=== PATIENT | female | born 1945 | race Caucasian/White ===

== ENCOUNTER 2019-11-14 07:32 | Outpatient (CLI) | payer MEDICARE, SELFPAY ==
[2019-11-14 08:18] LABS: Creatinine Urine 103.78 mg/dL (40-278); Total Protein Urine Random 54.5 mg/dL (0.0-11.9)
[2019-11-14 08:21] LABS: MALB Creatinine Ratio 308.8 mg/g (0-30); Microalbumin Urine Random 320.5 mg/L
[2019-11-14 08:39] LABS: Albumin Level 3.7 g/dL (3.4-5.0); Anion Gap 13.1 mmol/L (7-16); Blood Urea Nitrogen 34 mg/dL (7-18); Calcium 9.3 mg/dL (8.5-10.1); Carbon Dioxide 28 mmol/L (21-32); Chloride 109 mmol/L (98-108); Estimated Glomerular Filt Rate 30; Glucose 96 mg/dL (70-99); Osmolality Calculated 309 mOsm/kg (285-295); Phosphorus 3.7 mg/dL (2.6-4.7); Potassium 4.1 mmol/L (3.5-5.1); Sodium 146 mmol/L (136-145)
[2019-11-17 11:40] LABS: Parathyroid Intact 28 pg/mL (14-64)
[2019-11-18 12:02] LABS: Vitamin D 25 Hydroxy 38 ng/mL (30-100)
== END 2019-11-14 07:33 | disposition home or self-care (01) ==
LOC: CHSLAB 07:35
PROVIDERS: PCP Family Medicine; Visit Provider Internal Medicine Nephrology
DX: N18.4 Chronic kidney disease, stage 4 (severe) (principal); I12.9 Hypertensive chronic kidney disease with stage 1 through stage 4 chronic kidney disease, or unspecified chronic kidney disease; R80.8 Other proteinuria
CPT/HCPCS: 36415; 80069; 82043; 82306; 82570; 83970; 84156

== ENCOUNTER 2020-02-07 07:23 | Outpatient (CLI) | payer MEDICARE, SELFPAY ==
--- NOTE | ~2020-02-07 | MR_ITS ---
EXAMINATION: MR thoracic spine wo con DATE: 02/07/2020 08:31 INDICATION: Thoracic back pain. TECHNIQUE: Magnetic resonance imaging (MRI) of the thoracic spine was performed without intravenous c ontrast. Sagittal localizer T1-weighted FSE of the cervical spine was obtained. Thoracic spine sequen liyah included sagittal T2-weighted FSE, sagittal T1-weighted FSE, sagittal T2-weighted FS FSE, and axi al T2-weighted FSE. COMPARISON: Lumbar spine MRI 08/09/2019 FINDINGS: There is 7 degrees dextrocurvature of cervical spine. There is 2 mm anterolisthesis of C4 o n C5. Vertebral body heights are normal. There is moderately decreased disc height at C5-C6 and C6-C7 . There is mildly decreased disc height at most thoracic levels. There is severely decreased disc hei ght at T10-T11 with endplate remodeling. At T1-T2, there is a left foraminal extrusion with mild left neural foraminal stenosis. At T2-T3, T3-T4, T5-T6, T6-T7, T7-T8, and T8-T9, the discs are bulging wi th mild central canal stenosis. There is multilevel mild facet joint osteoarthritis. There is moderat e facet joint osteoarthritis bilaterally at T4-T5 and on the right at T5-T6. There is mild neural for aminal stenosis on the right at T4-T5 and T5-T6 and on the left at T4-T5 and T7-T8. The spinal cord s ignal intensity is normal. IMPRESSION: 1. Moderate thoracic spondylosis. Reviewed, dictated and finalized at location A.
== END 2020-02-07 07:24 | disposition home or self-care (01) ==
LOC: CHSIMG 07:25
PROVIDERS: PCP Family Medicine; Visit Provider Nurse Practitioner Family
DX: M54.6 Pain in thoracic spine (principal)
CPT/HCPCS: 72146

== ENCOUNTER 2020-02-12 07:05 | Outpatient (CLI) | payer MEDICARE, SELFPAY ==
[2020-02-12 07:38] LABS: Basophils Absolute Auto 0.04 K/mm3 (0.00-0.10); Basophils Percent Auto 0.5 % (0.0-1.0); Eosinophils Absolute Auto 0.28 K/mm3 (0.02-0.50); Eosinophils Percent Auto 3.6 % (1.0-6.0); Hematocrit 36.8 % (35.0-42.0); Hemoglobin 12.1 g/dL (11.7-13.8); Immature Granulocyte Absolute 0.05 K/mm3 (0.00-0.00); Immature Granulocyte Percent A 0.6 % (0.0-0.0); Lymphocytes Absolute Auto 1.49 K/mm3 (1.10-4.50); Lymphocytes Percent Auto 18.9 % (18.0-42.0); Mean Corpuscular HGB Conc 32.9 g/dL (32.0-36.0); Mean Corpuscular Hemoglobin 30.9 pg (27.0-31.0); Mean Corpuscular Volume 93.9 fL (78.0-102.0); Mean Platelet Volume 10.6 fl (9.2-11.8); Monocytes Absolute Auto 0.75 K/mm3 (0.10-0.90); Monocytes Percent Auto 9.5 % (2.0-11.0); Neutrophils Absolute Auto 5.3 K/mm3 (1.7-7.2); Neutrophils Percent Auto 66.9 % (50.0-70.0); Platelet Count Result 242 K/mm3 (150-420); Red Blood Count 3.92 M/mm3 (4.20-5.40); Red Cell Distribution Width 13.6 % (11.6-14.4); White Blood Count 7.9 K/mm3 (4.8-10.8)
[2020-02-12 08:52] LABS: Alanine Aminotransferase 27 U/L (14-59); Albumin Level 3.6 g/dL (3.4-5.0); Alkaline Phosphatase 95 U/L (46-116); Anion Gap 13.8 mmol/L (7-16); Aspartate Amino Transferase 16 U/L (15-37); Bilirubin,Total 0.3 mg/dL (0.00-1.00); Blood Urea Nitrogen 30 mg/dL (7-18); Calcium 9.8 mg/dL (8.5-10.1); Carbon Dioxide 29 mmol/L (21-32); Chloride 110 mmol/L (98-108); Estimated Glomerular Filt Rate 21; Glucose 100 mg/dL (70-99); Osmolality Calculated 314 mOsm/kg (285-295); Potassium 3.8 mmol/L (3.5-5.1); Sodium 149 mmol/L (136-145); Total Protein 6.7 g/dL (6.4-8.2)
== END 2020-02-12 07:06 | disposition home or self-care (01) ==
PROVIDERS: PCP Family Medicine; Visit Provider Family Medicine
DX: E78.2 Mixed hyperlipidemia (principal); I10 Essential (primary) hypertension
CPT/HCPCS: 36415; 80053; 85025

== ENCOUNTER 2020-02-17 12:07 | Outpatient (CLI) | payer MEDICARE, SELFPAY ==
[2020-02-17 12:22] LABS: Basophils Absolute Auto 0.04 K/mm3 (0.00-0.10); Basophils Percent Auto 0.5 % (0.0-1.0); Eosinophils Absolute Auto 0.15 K/mm3 (0.02-0.50); Eosinophils Percent Auto 1.8 % (1.0-6.0); Hematocrit 38.8 % (35.0-42.0); Hemoglobin 12.7 g/dL (11.7-13.8); Immature Granulocyte Absolute 0.04 K/mm3 (0.00-0.00); Immature Granulocyte Percent A 0.5 % (0.0-0.0); Lymphocytes Absolute Auto 1.48 K/mm3 (1.10-4.50); Lymphocytes Percent Auto 17.8 % (18.0-42.0); Mean Corpuscular HGB Conc 32.7 g/dL (32.0-36.0); Mean Corpuscular Hemoglobin 30.5 pg (27.0-31.0); Mean Corpuscular Volume 93.3 fL (78.0-102.0); Mean Platelet Volume 10.5 fl (9.2-11.8); Monocytes Absolute Auto 0.89 K/mm3 (0.10-0.90); Monocytes Percent Auto 10.7 % (2.0-11.0); Neutrophils Absolute Auto 5.7 K/mm3 (1.7-7.2); Neutrophils Percent Auto 68.7 % (50.0-70.0); Platelet Count Result 255 K/mm3 (150-420); Red Blood Count 4.16 M/mm3 (4.20-5.40); Red Cell Distribution Width 13.2 % (11.6-14.4); White Blood Count 8.3 K/mm3 (4.8-10.8)
[2020-02-17 13:32] LABS: D Dimer 2.02 mg/L (0.19-0.50)
== END 2020-02-17 12:08 | disposition home or self-care (01) ==
LOC: CHSLAB 12:10
PROVIDERS: PCP Family Medicine; Visit Provider Family Medicine
DX: G57.72 Causalgia of left lower limb (principal)
CPT/HCPCS: 36415; 85025; 85380

== ENCOUNTER 2020-02-17 14:16 | Outpatient (CLI) | payer MEDICARE, SELFPAY ==
--- NOTE | ~2020-02-17 | US_ITS ---
EXAMINATION: US venous doppler [facility] DATE: 02/17/2020 15:02 INDICATION: Lower limb edema and pain. TECHNIQUE: Grayscale ultrasound images without and with compression and Doppler ultrasound images of the bilateral lower extremity veins were obtained. COMPARISON: None. FINDINGS: The visualized portions of right common femoral vein, profunda (deep) femoral vein, femoral vein, pop liteal vein, peroneal veins, posterior tibial veins, and greater saphenous vein outflow are patent. The visualized portions of left common femoral vein, profunda femoral vein, femoral vein, popliteal v ein, peroneal veins, posterior tibial veins, and greater saphenous vein outflow are patent. IMPRESSION: 1. No deep venous thrombosis. Reviewed, dictated and finalized at location A.
== END 2020-02-17 14:17 | disposition home or self-care (01) ==
PROVIDERS: PCP Family Medicine; Visit Provider Family Medicine
DX: M79.89 Other specified soft tissue disorders (principal); R79.1 Abnormal coagulation profile
CPT/HCPCS: 93970

== ENCOUNTER 2020-03-02 11:19 | Outpatient (CLI) | payer MEDICARE, SELFPAY ==
[2020-03-02 12:52] LABS: Anion Gap 13.2 mmol/L (7-16); Blood Urea Nitrogen 38 mg/dL (7-18); Calcium 10.1 mg/dL (8.5-10.1); Carbon Dioxide 28 mmol/L (21-32); Chloride 107 mmol/L (98-108); Estimated Glomerular Filt Rate 23; Glucose 109 mg/dL (70-99); Osmolality Calculated 308 mOsm/kg (285-295); Potassium 4.2 mmol/L (3.5-5.1); Sodium 144 mmol/L (136-145)
== END 2020-03-02 11:20 | disposition home or self-care (01) ==
PROVIDERS: PCP Family Medicine; Visit Provider Family Medicine
DX: I10 Essential (primary) hypertension (principal)
CPT/HCPCS: 36415; 80048

== ENCOUNTER 2020-03-27 08:32 | Outpatient (CLI) | payer MEDICARE, SELFPAY ==
[2020-03-27 08:52] LABS: Total Protein Urine Random 123.3 mg/dL (0.0-11.9)
[2020-03-27 09:15] LABS: Albumin Level 3.7 g/dL (3.4-5.0); Blood Urea Nitrogen 35 mg/dL (7-18); Calcium 9.5 mg/dL (8.5-10.1); Carbon Dioxide 27 mmol/L (21-32); Chloride 107 mmol/L (98-108); Estimated Glomerular Filt Rate 24; Glucose 116 mg/dL (70-99); Osmolality Calculated 307 mOsm/kg (285-295); Phosphorus 3.5 mg/dL (2.6-4.7); Sodium 144 mmol/L (136-145)
== END 2020-03-27 08:33 | disposition home or self-care (01) ==
LOC: CHSLAB 08:34
PROVIDERS: PCP Family Medicine; Visit Provider Internal Medicine Nephrology
DX: N18.4 Chronic kidney disease, stage 4 (severe) (principal); I12.9 Hypertensive chronic kidney disease with stage 1 through stage 4 chronic kidney disease, or unspecified chronic kidney disease; R80.8 Other proteinuria
CPT/HCPCS: 36415; 80069; 82570; 84156

== ENCOUNTER 2020-04-28 09:51 | Outpatient (CLI) | payer MEDICARE, SELFPAY ==
[2020-04-28 10:14] LABS: Add Urine Microscopic? YES; Appearance Urine Clear (Clear); Basophils Absolute Auto 0.06 K/mm3 (0.00-0.10); Basophils Percent Auto 0.8 % (0.0-1.0); Bilirubin Urine Negative (Negative); Blood Urine Negative (Negative); Color Urine Yellow (Yellow); Eosinophils Absolute Auto 0.17 K/mm3 (0.02-0.50); Eosinophils Percent Auto 2.2 % (1.0-6.0); Glucose Urine UA Negative (Negative); Hematocrit 40.2 % (35.0-42.0); Hemoglobin 13.3 g/dL (11.7-13.8); Immature Granulocyte Absolute 0.03 K/mm3 (0.00-0.00); Immature Granulocyte Percent A 0.4 % (0.0-0.0); Ketones Urine Negative (Negative); Leukocyte Esterase Ur Negative LEU/UL (Negative); Lymphocytes Absolute Auto 1.38 K/mm3 (1.10-4.50); Lymphocytes Percent Auto 17.8 % (18.0-42.0); Mean Corpuscular HGB Conc 33.1 g/dL (32.0-36.0); Mean Corpuscular Hemoglobin 29.9 pg (27.0-31.0); Mean Corpuscular Volume 90.3 fL (78.0-102.0); Mean Platelet Volume 10.9 fl (9.2-11.8); Monocytes Absolute Auto 0.68 K/mm3 (0.10-0.90); Monocytes Percent Auto 8.8 % (2.0-11.0); Neutrophils Absolute Auto 5.4 K/mm3 (1.7-7.2); Nitrate Urine Negative (Negative); Platelet Count Result 260 K/mm3 (150-420); Protein Urine 1+ (Negative); Red Blood Count 4.45 M/mm3 (4.20-5.40); Specific Grav Ur 1.025 (1.010-1.020); Urobilinogen Urine 0.2 mg/dL (0.2-1.0); White Blood Count 7.8 K/mm3 (4.8-10.8); pH Urine 5.5 (5.0-8.0)
[2020-04-28 10:22] LABS: RBC Urine 0-2 /hpf (0-2); Squamous Epithelial Cell Urine Moderate /hpf (Few); WBC Urine 0-3 /hpf (0-3)
[2020-04-28 10:23] LABS: Bacteria Urine 2+ /hpf; Mucus Urine Moderate /lpf
--- NOTE | 2020-04-28 10:30 | ECG_ITS ---
Measurements Intervals [place] Rate: 70 P: 70 MT: 148 QRS: 59 QRSD: 79 T: 25 QT: 409 QTc: 443 Interpretive Statements SINUS RHYTHM BORDERLINE T WAVE ABNORMALITY- ANTERIOR LEADS BORDERLINE ECG Electronically Signed On 04-28-2020 11:23:22 CDT by Glen Aviles D.O.
[2020-04-28 10:58] LABS: Alanine Aminotransferase 26 U/L (14-59); Alkaline Phosphatase 92 U/L (46-116); Anion Gap 14.2 mmol/L (7-16); Aspartate Amino Transferase 20 U/L (15-37); Bilirubin,Total 0.3 mg/dL (0.00-1.00); Blood Urea Nitrogen 38 mg/dL (7-18); Calcium 9.7 mg/dL (8.5-10.1); Carbon Dioxide 27 mmol/L (21-32); Chloride 106 mmol/L (98-108); Estimated Glomerular Filt Rate 19; Glucose 118 mg/dL (70-99); Osmolality Calculated 306 mOsm/kg (285-295); Potassium 4.2 mmol/L (3.5-5.1); Sodium 143 mmol/L (136-145); Total Protein 7.4 g/dL (6.4-8.2)
[2020-04-28 11:00] LABS: CRP < 0.2 mg/dL (0.0-0.9)
[2020-04-28 11:16] LABS: Erythrocyte Sedimentation Rate 32 mm/hr (0-20)
== END 2020-04-28 09:52 | disposition home or self-care (01) ==
PROVIDERS: PCP Family Medicine; Visit Provider Nurse Practitioner Family
DX: Z01.818 Encounter for other preprocedural examination (principal)
CPT/HCPCS: 36415; 80053; 81001; 85025; 85652; 86140; 93005

== ENCOUNTER 2020-05-14 16:06 | Outpatient (CLI) | payer MEDICARE, SELFPAY ==
[2020-05-14 16:19] LABS: Basophils Absolute Auto 0.05 K/mm3 (0.00-0.10); Basophils Percent Auto 0.7 % (0.0-1.0); Eosinophils Absolute Auto 0.18 K/mm3 (0.02-0.50); Eosinophils Percent Auto 2.5 % (1.0-6.0); Hematocrit 37.5 % (35.0-42.0); Hemoglobin 12.2 g/dL (11.7-13.8); Immature Granulocyte Absolute 0.04 K/mm3 (0.00-0.00); Immature Granulocyte Percent A 0.6 % (0.0-0.0); Lymphocytes Absolute Auto 1.36 K/mm3 (1.10-4.50); Lymphocytes Percent Auto 18.8 % (18.0-42.0); Mean Corpuscular HGB Conc 32.5 g/dL (32.0-36.0); Mean Corpuscular Hemoglobin 29.3 pg (27.0-31.0); Mean Corpuscular Volume 89.9 fL (78.0-102.0); Mean Platelet Volume 10.2 fl (9.2-11.8); Monocytes Absolute Auto 0.84 K/mm3 (0.10-0.90); Monocytes Percent Auto 11.6 % (2.0-11.0); Neutrophils Absolute Auto 4.8 K/mm3 (1.7-7.2); Neutrophils Percent Auto 65.8 % (50.0-70.0); Platelet Count Result 288 K/mm3 (150-420); Red Blood Count 4.17 M/mm3 (4.20-5.40); Red Cell Distribution Width 13.1 % (11.6-14.4); White Blood Count 7.3 K/mm3 (4.8-10.8)
[2020-05-14 17:00] LABS: Alanine Aminotransferase 25 U/L (14-59); Albumin Level 3.7 g/dL (3.4-5.0); Alkaline Phosphatase 108 U/L (46-116); Anion Gap 8 mmol/L (8-16); Aspartate Amino Transferase 22 U/L (15-37); Bilirubin,Total 0.3 mg/dL (0.00-1.00); Blood Urea Nitrogen 29 mg/dL (7-18); Calcium 10.1 mg/dL (8.5-10.1); Carbon Dioxide 31 mmol/L (21-32); Chloride 106 mmol/L (98-108); Estimated Glomerular Filt Rate 25; Glucose 88 mg/dL (70-99); Osmolality Calculated 304 mOsm/kg (285-295); Potassium 3.8 mmol/L (3.5-5.1); Sodium 145 mmol/L (136-145); Total Protein 7.2 g/dL (6.4-8.2)
== END 2020-05-14 16:07 | disposition home or self-care (01) ==
LOC: CHSLAB 16:09
PROVIDERS: PCP Family Medicine; Visit Provider Family Medicine
DX: R60.0 Localized edema (principal)
CPT/HCPCS: 36415; 80053; 85025

== ENCOUNTER 2020-05-28 08:22 | Outpatient (CLI) | payer MEDICARE, SELFPAY ==
[2020-05-28 08:37] LABS: Basophils Absolute Auto 0.05 K/mm3 (0.00-0.10); Basophils Percent Auto 0.7 % (0.0-1.0); Eosinophils Absolute Auto 0.22 K/mm3 (0.02-0.50); Eosinophils Percent Auto 2.9 % (1.0-6.0); Hematocrit 38.7 % (35.0-42.0); Hemoglobin 12.4 g/dL (11.7-13.8); Immature Granulocyte Absolute 0.05 K/mm3 (0.00-0.00); Immature Granulocyte Percent A 0.7 % (0.0-0.0); Lymphocytes Absolute Auto 1.21 K/mm3 (1.10-4.50); Lymphocytes Percent Auto 15.8 % (18.0-42.0); Mean Corpuscular Hemoglobin 28.4 pg (27.0-31.0); Mean Corpuscular Volume 88.6 fL (78.0-102.0); Mean Platelet Volume 10.7 fl (9.2-11.8); Monocytes Absolute Auto 0.72 K/mm3 (0.10-0.90); Monocytes Percent Auto 9.4 % (2.0-11.0); Neutrophils Absolute Auto 5.4 K/mm3 (1.7-7.2); Neutrophils Percent Auto 70.5 % (50.0-70.0); Platelet Count Result 267 K/mm3 (150-420); Red Blood Count 4.37 M/mm3 (4.20-5.40); Red Cell Distribution Width 13.3 % (11.6-14.4); White Blood Count 7.6 K/mm3 (4.8-10.8)
[2020-05-28 09:07] LABS: Anion Gap 12 mmol/L (8-16); Blood Urea Nitrogen 38 mg/dL (7-18); Calcium 9.4 mg/dL (8.5-10.1); Carbon Dioxide 25 mmol/L (21-32); Chloride 107 mmol/L (98-108); Estimated Glomerular Filt Rate 22; Glucose 110 mg/dL (70-99); Osmolality Calculated 308 mOsm/kg (285-295); Potassium 4.1 mmol/L (3.5-5.1); Sodium 144 mmol/L (136-145)
== END 2020-05-28 08:23 | disposition home or self-care (01) ==
PROVIDERS: PCP Family Medicine; Visit Provider Family Medicine
DX: I10 Essential (primary) hypertension (principal)
CPT/HCPCS: 36415; 80048; 85025

== ENCOUNTER 2020-07-07 07:50 | Outpatient (RCR) | payer MEDICARE, SELFPAY ==
--- NOTE | 2020-07-07 17:48 | PTOPEVAL ---
Thank you for referring Juliana Pennington to [facility].? The patient is scheduled to be seen for therapy? ____x/week for ___ weeks. Please review, sign, date and return this plan of care MAGDALENA. I agree with and certify that the following plan of care is medically necessary. Referring Physician Date Admitting Provider: Attending Provider: Keshia Rahman, LAURO Referring Provider: *LUCIANA Outpatient Evaluation Start: 07/07/20 07:02 Freq: Status: Active Protocol: Document 07/07/20 07:02 [facility] (Rec: 07/07/20 07:56 [facility] [id number]) Therapy Assessment Status Assessment Status Assessment Status Evaluation Evaluation Information Problem Diagnosis pain stimulator implant and bilateral knee pain Onset 05/07/20 Additional Evaluation Detail oswestry = 58% LEFS = 66% Subjective Information patient reports she has had Query Text:As Reported By Patient/ back pain for years. she Family reports she went through a long process recently to help reduce her pain and found a stimulator to be the best help . she had a permanent stimulator placed on 05/07/20. she reports she has stiffness and pain in the L LE still. she reports she is limping still. she reports she also has pain in the R knee. she reports she has increased pain in with standing and walking. she reports she has reduction of pain with sitting. Prior Level of Function Comments Additional Prior Level of Function patient reports since her Comments surgery, she no longer has the horrific pain in her L LE. however, she still has stiffness. she reports she would like to focus on getting back to standing without pain and walking without a limp. Pain Assessment Timing of Pain Assessment Timing of Pain Assessment Assessment Pain Scale Pain Scale Used Numeric (1 - 10) Self Report Pain Assessment Right Knee(s) Reported Pain Level 2 Lowest Pain Intensity 1 Greatest Pain Intensity 2 Lower Back Reported Pain Level 4 Pain Radiation Left Leg Lowest Pain Intensity 3 Greatest Pain Intensity 8
== END 2020-07-29 08:20 | disposition home or self-care (01) ==
LOC: CHSPT 07:50
PROVIDERS: PCP Family Medicine; Visit Provider Nurse Practitioner Family
DX: M54.5 Low back pain (principal); M54.16 Radiculopathy, lumbar region; M62.81 Muscle weakness (generalized); M25.562 Pain in left knee; M25.561 Pain in right knee
CPT/HCPCS: 97110; 97162; 97530

== ENCOUNTER 2020-07-08 10:33 | Outpatient (CLI) | payer MEDICARE, SELFPAY ==
--- NOTE | ~2020-07-08 | XR_ITS ---
XR ankle LT min 3V DATE: 07/08/2020 11:14 INDICATION: Left ankle and foot pain TECHNIQUE: 4 views COMPARISON: None FINDINGS: Diffuse osteopenia. There is moderate generalized soft tissue swelling of the left ankle. No fracture or dislocation of the ankle or disruption of the ankle mortise is detected. No periosteal reaction or bone destruction. Posterior calcaneal enthesopathy. Slight plantar calcaneal enthesopathy. IMPRESSION: Soft tissue swelling Osteopenia Plantar and posterior calcaneal enthesopathy Reviewed, dictated and finalized at location B.
--- NOTE | ~2020-07-08 | XR_ITS ---
XR knee RT 3V DATE: 07/08/2020 11:14 INDICATION: Right knee pain TECHNIQUE: [place] and AP and lateral views COMPARISON: None FINDINGS: Prominent enthesopathy of the superior pole of the patella at the quadriceps tendon inserti on. There is slight periarticular spurring of the patella. There is moderate loss of joint space and minimal periarticular spurring at the medial compartment. No fracture or dislocation or joint effusion. No periosteal reaction or bone destruction. No radiopaq ue intra-articular loose body or chondrocalcinosis is evident. There is prominent femoral and some popliteal artery calcification. IMPRESSION: Osteoarthritis of medial and to a lesser extent patellofemoral compartments Reviewed, dictated and finalized at location B. IMPRESSION: Osteoarthritis of medial and to a lesser extent patellofemoral comp artments
--- NOTE | ~2020-07-08 | XR_ITS ---
EXAMINATION: XR knee LT 3V DATE: 07/08/2020 11:14 INDICATION: Left knee pain. TECHNIQUE: 3 views of left knee were obtained. COMPARISON: None. FINDINGS: Bone alignment is normal. No fracture. There is mild tricompartmental osteoarthritis. No kn ee joint effusion. IMPRESSION: 1. Mild left knee osteoarthritis. Reviewed, dictated and finalized at location A.
== END 2020-07-08 10:34 | disposition home or self-care (01) ==
PROVIDERS: PCP Family Medicine; Visit Provider Family Medicine
DX: M25.572 Pain in left ankle and joints of left foot (principal); M25.561 Pain in right knee
CPT/HCPCS: 73562; 73610

== ENCOUNTER 2020-07-19 08:14 | Outpatient (CLI) | payer MEDICARE, SELFPAY ==
--- NOTE | ~2020-07-19 | XR_ITS ---
EXAMINATION: XR foot LT min 3V DATE: 07/19/2020 08:37 INDICATION: Lateral left foot and ankle pain TECHNIQUE: Dorsoplantar, two oblique and lateral views of the left foot were obtained. COMPARISON: None. FINDINGS: Alignment is normal. No fracture. Mild polyarticular osteoarthritis at multiple joints in the mid and forefoot most prominent at the first metatarsophalangeal joint. Small Achilles and plantar calcaneal spurs. Subcutaneous edema with soft tissue swelling about the ankle and distal lower leg. IMPRESSION: 1. Mild polyarticular osteoarthritis in the mid and forefoot. No acute osseous abnormality. Reviewed, dictated and finalized at location B.
--- NOTE | ~2020-07-19 | XR_ITS ---
EXAMINATION: XR ankle LT min 3V DATE: 07/19/2020 08:37 INDICATION: Left ankle pain. TECHNIQUE: 3 views of left ankle were obtained. COMPARISON: Left ankle radiographs 07/08/2020 FINDINGS: Bone alignment is normal. No fracture. There is mild osteoarthritis of talonavicular joint. There are enthesophytes at the posterior and plantar aspects of calcaneal tuberosity. Ankle soft tis ekta swelling is noted. IMPRESSION: 1. Mild osteoarthritis of talonavicular joint. Reviewed, dictated and finalized at location A.
== END 2020-07-19 08:15 | disposition home or self-care (01) ==
LOC: CHSIMG 08:15
PROVIDERS: PCP Family Medicine; Visit Provider Orthopaedic Surgery
DX: M79.672 Pain in left foot (principal); M25.572 Pain in left ankle and joints of left foot
CPT/HCPCS: 73610; 73630

== ENCOUNTER 2020-07-22 07:53 | Outpatient (CLI) | payer MEDICARE, SELFPAY ==
[2020-07-22 08:13] LABS: Creatinine Urine 110.28 mg/dL (40-278); Total Protein Urine Random 56.3 mg/dL (0.0-11.9)
[2020-07-22 09:09] LABS: Albumin Level 3.9 g/dL (3.4-5.0); Anion Gap 11 mmol/L (8-16); Blood Urea Nitrogen 35 mg/dL (7-18); Calcium 9.8 mg/dL (8.5-10.1); Carbon Dioxide 26 mmol/L (21-32); Chloride 108 mmol/L (98-108); Estimated Glomerular Filt Rate 26; Glucose 121 mg/dL (70-99); Osmolality Calculated 309 mOsm/kg (285-295); Phosphorus 4.1 mg/dL (2.6-4.7); Potassium 4.2 mmol/L (3.5-5.1); Sodium 145 mmol/L (136-145)
[2020-07-24 12:21] LABS: Vitamin D 25 Hydroxy 32 ng/mL (30-100)
[2020-07-26 12:09] LABS: Parathyroid Intact 43 pg/mL (14-64)
== END 2020-07-22 07:54 | disposition home or self-care (01) ==
LOC: CHSLAB 07:55
PROVIDERS: PCP Family Medicine; Visit Provider Internal Medicine Nephrology
DX: I12.9 Hypertensive chronic kidney disease with stage 1 through stage 4 chronic kidney disease, or unspecified chronic kidney disease (principal); N18.4 Chronic kidney disease, stage 4 (severe); R80.8 Other proteinuria
CPT/HCPCS: 36415; 80069; 82306; 82570; 83970; 84156

== ENCOUNTER 2020-07-28 09:42 | Outpatient (CLI) | payer MEDICARE, SELFPAY ==
--- NOTE | ~2020-07-28 | US_ITS ---
US arterial ankle brachial ind INDICATION: Arterial insufficiency TECHNIQUE: Segmental pressures and plethysmographic and Doppler waveforms of the brachial and lower e xtremity arteries were obtained. COMPARISON: None. FINDINGS: Right and left brachial artery pressures of 139 mm Hg and 133 mm Hg, respectively, are concordant (no rmal difference <= 30 mmHg). The right ankle-brachial index (REAGAN) is 0.97 (normal >= 0.9-1.0). The right great toe-brachial index (TBI) is 0.62 (normal >= 0.60). The left REAGAN is 0.99. The left TBI is 0.74. IMPRESSION: 1. Normal ankle-brachial indices. Reviewed, dictated and finalized at location B.
== END 2020-07-28 09:43 | disposition home or self-care (01) ==
PROVIDERS: PCP Family Medicine; Visit Provider Orthopaedic Surgery
DX: I73.9 Peripheral vascular disease, unspecified (principal)
CPT/HCPCS: 93922

== ENCOUNTER 2020-08-05 09:59 | Outpatient (CLI) | payer MEDICARE, SELFPAY ==
--- NOTE | ~2020-08-05 | US_ITS ---
EXAMINATION: US venous doppler [facility] DATE: 08/05/2020 11:52 INDICATION: Phlebitis and thrombophlebitis of superficial veins at the lower limbs TECHNIQUE: Grayscale ultrasound images without and with compression and Doppler ultrasound images of the bilateral lower extremity veins were obtained. COMPARISON: None. FINDINGS: The visualized portions of right common femoral vein, profunda (deep) femoral vein, femoral vein, pop liteal vein, posterior tibial veins, peroneal veins, gastrocnemius vein and greater saphenous vein ou tflow are patent. Right standing Venous Mapping: reflux seconds duration; vein size. Greater saphenous origin: 0 seconds; 6.4 mm. Greater saphenous mid thigh:------ 0 seconds; 4.5 mm. Greater saphenous above knee:--- 0 seconds; 3.5 mm. Greater saphenous below knee:--- 0 seconds; 2.6-1.7 mm. Lesser saphenous: 0 seconds; too small to measure. The visualized portions of left common femoral vein, profunda femoral vein, femoral vein, popliteal v ein, posterior tibial veins, peroneal veins, gastrocnemius vein and greater saphenous vein outflow ar e patent. Left standing Venous Mapping: reflux seconds duration; vein size. Greater saphenous origin: 0 seconds; 5.6 mm. Greater saphenous mid thigh:------ 0 seconds; 5.8 mm. Greater saphenous above knee:--- 0 seconds; 3.4 mm. Greater saphenous below knee:--- 0 seconds; 3.9-2.3 mm. Lesser saphenous proximally:------ 0 seconds; 2.4 mm. Lesser saphenous distally: 0 seconds; 1.9 mm. IMPRESSION: 1. No deep venous thrombosis in either lower limb. 2. No reflux in either the left or right, greater or lesser saphenous veins. Reviewed, dictated and finalized at location B.
== END 2020-08-05 10:00 | disposition home or self-care (01) ==
PROVIDERS: PCP Family Medicine; Visit Provider Orthopaedic Surgery
DX: I80.03 Phlebitis and thrombophlebitis of superficial vessels of lower extremities, bilateral (principal)
CPT/HCPCS: 93970

== ENCOUNTER 2020-08-27 07:38 | Outpatient (CLI) | payer MEDICARE, SELFPAY ==
[2020-08-27 08:18] LABS: Basophils Absolute Auto 0.06 K/mm3 (0.00-0.10); Basophils Percent Auto 0.9 % (0.0-1.0); Eosinophils Absolute Auto 0.31 K/mm3 (0.02-0.50); Eosinophils Percent Auto 4.7 % (1.0-6.0); Hematocrit 37.6 % (35.0-42.0); Hemoglobin 12.3 g/dL (11.7-13.8); Immature Granulocyte Absolute 0.02 K/mm3 (0.00-0.00); Immature Granulocyte Percent A 0.3 % (0.0-0.0); Lymphocytes Absolute Auto 1.49 K/mm3 (1.10-4.50); Lymphocytes Percent Auto 22.7 % (18.0-42.0); Mean Corpuscular HGB Conc 32.7 g/dL (32.0-36.0); Mean Corpuscular Hemoglobin 29.3 pg (27.0-31.0); Mean Corpuscular Volume 89.5 fL (78.0-102.0); Mean Platelet Volume 11.3 fl (9.2-11.8); Monocytes Absolute Auto 0.69 K/mm3 (0.10-0.90); Monocytes Percent Auto 10.5 % (2.0-11.0); Neutrophils Percent Auto 60.9 % (50.0-70.0); Platelet Count Result 260 K/mm3 (150-420); Red Cell Distribution Width 13.3 % (11.6-14.4); White Blood Count 6.6 K/mm3 (4.8-10.8)
[2020-08-27 09:24] LABS: Creatinine Urine 78.59 mg/dL (40-278)
[2020-08-27 09:27] LABS: Alanine Aminotransferase 33 U/L (14-59); Albumin Level 3.8 g/dL (3.4-5.0); Alkaline Phosphatase 103 U/L (46-116); Anion Gap 11 mmol/L (8-16); Aspartate Amino Transferase 15 U/L (15-37); Bilirubin,Total 0.3 mg/dL (0.00-1.00); Blood Urea Nitrogen 30 mg/dL (7-18); Calcium 9.5 mg/dL (8.5-10.1); Carbon Dioxide 28 mmol/L (21-32); Chloride 106 mmol/L (98-108); Cholesterol 130 mg/dL (0-200); Estimated Glomerular Filt Rate 25; Glucose 108 mg/dL (70-99); HDL Direct 38 mg/dL (40-60); LDL Cholesterol Calculated 53 mg/dL (<130); Osmolality Calculated 307 mOsm/kg (285-295); Sodium 145 mmol/L (136-145); Thyroid Stimulating Hormone 0.82 uIU/mL (0.36-3.74); Total Protein 7.2 g/dL (6.4-8.2); Triglycerides 196 mg/dL (0-150)
[2020-08-27 09:32] LABS: MALB Creatinine Ratio 135.3 mg/g (0-30); Microalbumin Urine Random 106.4 mg/L
== END 2020-08-27 07:39 | disposition home or self-care (01) ==
LOC: CHSLAB 07:39
PROVIDERS: PCP Family Medicine; Visit Provider Family Medicine
DX: E78.2 Mixed hyperlipidemia (principal); I10 Essential (primary) hypertension
CPT/HCPCS: 36415; 80053; 80061; 82043; 84443; 85025

== ENCOUNTER 2020-11-26 07:53 | Outpatient (CLI) | payer MEDICARE, SELFPAY ==
[2020-11-26 08:12] LABS: Basophils Absolute Auto 0.04 K/mm3 (0.00-0.10); Basophils Percent Auto 0.6 % (0.0-1.0); Eosinophils Absolute Auto 0.22 K/mm3 (0.02-0.50); Eosinophils Percent Auto 3.2 % (1.0-6.0); Hematocrit 39.4 % (35.0-42.0); Hemoglobin 12.9 g/dL (11.7-13.8); Immature Granulocyte Absolute 0.01 K/mm3 (0.00-0.00); Immature Granulocyte Percent A 0.1 % (0.0-0.0); Lymphocytes Absolute Auto 1.29 K/mm3 (1.10-4.50); Lymphocytes Percent Auto 18.8 % (18.0-42.0); Mean Corpuscular HGB Conc 32.7 g/dL (32.0-36.0); Mean Corpuscular Hemoglobin 29.5 pg (27.0-31.0); Mean Corpuscular Volume 90.2 fL (78.0-102.0); Mean Platelet Volume 10.5 fl (9.2-11.8); Monocytes Absolute Auto 0.57 K/mm3 (0.10-0.90); Monocytes Percent Auto 8.3 % (2.0-11.0); Neutrophils Absolute Auto 4.8 K/mm3 (1.7-7.2); Platelet Count Result 198 K/mm3 (150-420); Red Blood Count 4.37 M/mm3 (4.20-5.40); Red Cell Distribution Width 13.2 % (11.6-14.4); White Blood Count 6.9 K/mm3 (4.8-10.8)
[2020-11-26 08:43] LABS: Anion Gap 8 mmol/L (8-16); Blood Urea Nitrogen 36 mg/dL (7-18); Calcium 9.2 mg/dL (8.5-10.1); Carbon Dioxide 29 mmol/L (21-32); Chloride 108 mmol/L (98-108); Estimated Glomerular Filt Rate 25; Glucose 89 mg/dL (70-99); Osmolality Calculated 307 mOsm/kg (285-295); Potassium 4.3 mmol/L (3.5-5.1); Sodium 145 mmol/L (136-145)
== END 2020-11-26 07:54 | disposition home or self-care (01) ==
LOC: CHSLAB 07:55
PROVIDERS: PCP Family Medicine; Visit Provider Family Medicine
DX: I10 Essential (primary) hypertension (principal)
CPT/HCPCS: 36415; 80048; 85025

== ENCOUNTER 2020-12-14 08:15 | Outpatient (RCR) | payer MEDICARE, SELFPAY ==
--- NOTE | 2020-09-15 13:03 | PTOPEVAL ---
Thank you for referring Juliana Pennington to [facility].? The patient is scheduled to be seen for therapy? 2-3 x/week for 8 weeks. Please review, sign, date and return this plan of care MAGDALENA. I agree with and certify that the following plan of care is medically necessary. Referring Physician Date Attending Provider: Travis Oreilly MD Referring Provider: *PT Outpatient Evaluation Start: 09/15/20 09:44 Freq: Status: Active Protocol: Document 09/15/20 09:44 [facility] (Rec: 09/15/20 11:00 [facility] [id number]) Therapy Assessment Status Assessment Status Assessment Status Evaluation Outpatient Past Medical History Past Medical History Source of Past Medical History Patient,Recalled from Previous Visit, Confirmed with Patient /Family Neurological History Hx Neurological Disorders No Significant History Cardiovascular History Hx Hypertension Yes Hx Other Cardiac Disorders Yes: venous insufficiency- peripheral Respiratory History Hx Respiratory Disorders No Significant History Musculoskeletal History Hx Arthritis Yes: ankle, hip, knees Integumentary History Hx Cellulitis Yes: left leg Pain History Has Past Pain Affected Your Daily Life Yes History of Pain Pump Yes Evaluation Information Problem Diagnosis left ankle pain Onset 2 yr Cause unknown Additional Evaluation Detail 3 previous bouts of therapy with last session to address her back and upper leg pain and ankle pain Jun-Jul 2020. She had pain stimulator implemented May 07, 2020 due to radiating pain from back to ankle Subjective Information She has been having ankle pain Query Text:As Reported By Patient/ for 1-2 yrs, with increased Family symptoms after pain stimulator was placed. Her impairments have progressed over the last 2 yres. She walks and stands on the outside of the foot. 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 She uses the cane at all times since Jul. She was using a walker, but prefers the cane. Reports near falls with c
--- NOTE | 2020-09-30 08:20 | PCPTNOTE ---
Patient called & cancelled scheduled appointment this date due to being sick.
--- NOTE | 2020-11-11 12:43 | PTOPEVAL ---
Thank you for referring Juliana Pennington to [facility].?Please see summary below for patient's progress with therapy. The patient is scheduled to be seen for therapy? 2x/week for 4 weeks. Please review, sign, date and return this plan of care MAGDALENA. I agree with and certify that the following plan of care is medically necessary. Referring Physician Date Attending Provider: Travis Oreilly MD Progress Note Diagnosis left ankle pain Onset 2 yr Cause unknown Subjective Information She continues to c/o pain on Query Text:As Reported By Patient/ the left lateral upper leg Family region. She does feel like she can walk longer than initially. She is limited with prolonged standing due to lateral calf and thigh pain. She is able to stand for 10 min intervals, then she needs to sit and rest. She has not performed longer distance community or outside walking. She is able to walk a small store before her pain increases to severe. She continues to use the came for mobility. She has had a couple near falls with her exercises. c/o increased back pain at night when attempting to sleep. Pain Assessment Left Hip(s) Reported Pain Level 3 Pain Description Aching,Tender on Palpation, Tightness Pain Frequency Chronic,Continuous Lowest Pain Intensity 3 Greatest Pain Intensity 4 Pain Aggravating Factors Exercise/Activity,Walking, Weight Bearing/Standing Left Ankle(s) Reported Pain Level 1 Pain Description Aching,Soreness Pain Frequency Chronic,Continuous Lowest Pain Intensity 1 Greatest Pain Intensity 2 Pain Aggravating Factors Bending,Exercise/Activity, Prolonged Position,Stair Climbing,Walking,Weight Lower Extremity Range of Motion Left Ankle Dorsiflexion With Knee Extension -14 Range of Motion - Active Ankle Dorsiflexion With Knee Extension -8 Range of Motion - Passive Ankle Plantarflexion Range of Motion - 50 Active Query Text: Ankle Eversion Range of Motion - Active 12 Ankle Jo Ann
--- NOTE | 2020-12-14 11:21 | PTOPEVAL ---
Thank you for referring Juliana Pennington to [facility].? Pt has attended 25 therapy visits to address leg impairments. As a result of skilled therapy services she demonstrates progress with ankle motion, leg strength and functional mobility. She is independent with her home program. She has reached maximal potential with skilled therapy services at this time. Discharging patient from skilled therapy services at this time. Please review, sign, date and return this plan of care MAGDALENA. I agree with and certify that the following plan of care is medically necessary. Referring Physician Date Admitting Provider: Attending Provider: Travis Oreilly MD Physical Therapy Discharge Note Diagnosis left ankle pain Onset 2 yr Cause unknown Additional Evaluation Detail 3 previous bouts of therapy with last session to address her back and upper leg pain and ankle pain Jun-Jul 2020. She had pain stimulator implemented May 07, 2020 due to radiating pain from back to ankle She has been having ankle pain for 1-2 yrs, with increased symptoms after pain stimulator was placed. Her impairments have progressed over the last 2 yrs. Subjective Information She reports improved pain in Query Text:As Reported By Patient/ the left buttock region. She Family has new shoes and inserts which she purchased at the [employer] . Does feel the shoes and inserts are helping with foot position and control. She worked in the yard yesterday without loss of balance. She does feel like she can stand for 15-20 min. before needing a rest. She does feel like her walking is better. Pain Assessment Numeric (1 - 10) Self Report Pain Assessment Left Hip(s) Reported Pain Level 2 Pain Description Aching,Tender on Palpation, Tightness Pain Frequency Chronic Lowest Pain Intensity 2 Greatest Pain Intensity 6 Pain Aggravating Factors Exercise/Activity,Walking, Weight Bearing/Standing Left Ankle(s) Reported Pain Level 1 Pain Description Aching,Soreness Pain Frequency Chronic,Continuous
== END 2020-12-14 23:59 | disposition home or self-care (01) ==
LOC: ANHPT 08:15
PROVIDERS: PCP Family Medicine; Visit Provider Orthopaedic Surgery
DX: M25.572 Pain in left ankle and joints of left foot (principal)
CPT/HCPCS: 97110; 97112; 97116; 97140; 97163; 97530

== ENCOUNTER 2021-01-10 07:56 | Outpatient (CLI) | payer MEDICARE, SELFPAY ==
[2021-01-10 08:24] LABS: Creatinine Urine 214.29 mg/dL (40-278); Total Protein Urine Random 114.4 mg/dL (0.0-11.9); Ur Ttl Prot Creatinine Ratio 0.53 mg/mg (0-0.20)
[2021-01-10 09:06] LABS: Albumin Level 3.7 g/dL (3.4-5.0); Anion Gap 10 mmol/L (8-16); Blood Urea Nitrogen 37 mg/dL (7-18); Calcium 9.6 mg/dL (8.5-10.1); Carbon Dioxide 28 mmol/L (21-32); Chloride 104 mmol/L (98-108); Estimated Glomerular Filt Rate 21; Glucose 103 mg/dL (70-99); Osmolality Calculated 302 mOsm/kg (285-295); Phosphorus 3.4 mg/dL (2.6-4.7); Potassium 4.1 mmol/L (3.5-5.1); Sodium 142 mmol/L (136-145)
== END 2021-01-10 07:57 | disposition home or self-care (01) ==
LOC: CHSLAB 07:57
PROVIDERS: PCP Family Medicine; Visit Provider Internal Medicine Nephrology
DX: R80.8 Other proteinuria (principal); I12.9 Hypertensive chronic kidney disease with stage 1 through stage 4 chronic kidney disease, or unspecified chronic kidney disease; N18.4 Chronic kidney disease, stage 4 (severe)
CPT/HCPCS: 36415; 80069; 82570; 84156

== ENCOUNTER 2021-03-11 07:38 | Outpatient (CLI) | payer MEDICARE, SELFPAY ==
[2021-03-11 09:38] LABS: Anion Gap 13 mmol/L (8-16); Blood Urea Nitrogen 46 mg/dL (7-18); Calcium 9.8 mg/dL (8.5-10.1); Carbon Dioxide 27 mmol/L (21-32); Chloride 104 mmol/L (98-108); Estimated Glomerular Filt Rate 19; Glucose 103 mg/dL (70-99); Osmolality Calculated 309 mOsm/kg (285-295); Potassium 4.1 mmol/L (3.5-5.1); Sodium 144 mmol/L (136-145); Uric Acid 9.5 mg/dL (2.6-6.0)
== END 2021-03-11 07:39 | disposition home or self-care (01) ==
LOC: CHSLAB 07:40
PROVIDERS: PCP Family Medicine; Visit Provider Family Medicine
DX: M10.9 Gout, unspecified (principal); I10 Essential (primary) hypertension
CPT/HCPCS: 36415; 80048; 84550

== ENCOUNTER 2021-05-24 08:55 | Outpatient (CLI) | payer MEDICARE, SELFPAY ==
[2021-05-24 09:14] LABS: Creatinine Urine 115.09 mg/dL (40-278); Total Protein Urine Random 23.2 mg/dL (0.0-11.9)
[2021-05-24 09:51] LABS: Albumin Level 3.8 g/dL (3.4-5.0); Anion Gap 13 mmol/L (8-16); Blood Urea Nitrogen 54 mg/dL (7-18); Calcium 9.8 mg/dL (8.5-10.1); Carbon Dioxide 27 mmol/L (21-32); Chloride 106 mmol/L (98-108); Estimated Glomerular Filt Rate 17; Glucose 113 mg/dL (70-99); Osmolality Calculated 317 mOsm/kg (285-295); Phosphorus 3.7 mg/dL (2.6-4.7); Potassium 4.2 mmol/L (3.5-5.1); Sodium 146 mmol/L (136-145)
[2021-05-26 12:03] LABS: Vitamin D 25 Hydroxy 33 ng/mL (30-100)
[2021-05-27 12:49] LABS: Parathyroid Intact 22 pg/mL (14-64)
== END 2021-05-24 08:56 | disposition home or self-care (01) ==
LOC: CHSLAB 08:57
PROVIDERS: PCP Family Medicine; Visit Provider Internal Medicine Nephrology
DX: R80.8 Other proteinuria (principal); I12.9 Hypertensive chronic kidney disease with stage 1 through stage 4 chronic kidney disease, or unspecified chronic kidney disease; N18.4 Chronic kidney disease, stage 4 (severe)
CPT/HCPCS: 36415; 80069; 82306; 82570; 83970; 84156

== ENCOUNTER 2021-07-20 08:37 | Outpatient (CLI) | payer MEDICARE, SELFPAY ==
[2021-07-20 08:56] LABS: Basophils Absolute Auto 0.06 K/mm3 (0.00-0.10); Basophils Percent Auto 0.9 % (0.0-1.0); Eosinophils Absolute Auto 0.36 K/mm3 (0.02-0.50); Eosinophils Percent Auto 5.3 % (1.0-6.0); Hematocrit 40.2 % (35.0-42.0); Hemoglobin 13.2 g/dL (11.7-13.8); Immature Granulocyte Absolute 0.02 K/mm3 (0.00-0.00); Immature Granulocyte Percent A 0.3 % (0.0-0.0); Lymphocytes Absolute Auto 1.31 K/mm3 (1.10-4.50); Lymphocytes Percent Auto 19.4 % (18.0-42.0); Mean Corpuscular HGB Conc 32.8 g/dL (32.0-36.0); Mean Corpuscular Hemoglobin 29.6 pg (27.0-31.0); Mean Corpuscular Volume 90.1 fL (78.0-102.0); Mean Platelet Volume 10.7 fl (9.2-11.8); Monocytes Absolute Auto 0.64 K/mm3 (0.10-0.90); Monocytes Percent Auto 9.5 % (2.0-11.0); Neutrophils Absolute Auto 4.4 K/mm3 (1.7-7.2); Neutrophils Percent Auto 64.6 % (50.0-70.0); Platelet Count Result 261 K/mm3 (150-420); Red Blood Count 4.46 M/mm3 (4.20-5.40); Red Cell Distribution Width 13.2 % (11.6-14.4); White Blood Count 6.7 K/mm3 (4.8-10.8)
[2021-07-20 09:57] LABS: Alanine Aminotransferase 35 U/L (14-59); Alkaline Phosphatase 99 U/L (46-116); Anion Gap 11 mmol/L (8-16); Aspartate Amino Transferase 17 U/L (15-37); Bilirubin,Total 0.4 mg/dL (0.00-1.00); Blood Urea Nitrogen 34 mg/dL (7-18); Calcium 9.7 mg/dL (8.5-10.1); Carbon Dioxide 28 mmol/L (21-32); Chloride 108 mmol/L (98-108); Estimated Glomerular Filt Rate 24; Glucose 102 mg/dL (70-99); Osmolality Calculated 311 mOsm/kg (285-295); Potassium 4.4 mmol/L (3.5-5.1); Sodium 147 mmol/L (136-145); Thyroid Stimulating Hormone 0.85 uIU/mL (0.36-3.74); Total Protein 7.3 g/dL (6.4-8.2)
== END 2021-07-20 08:38 | disposition home or self-care (01) ==
LOC: CHSLAB 08:40
PROVIDERS: PCP Family Medicine; Visit Provider Family Medicine
DX: I10 Essential (primary) hypertension (principal)
CPT/HCPCS: 36415; 80053; 84443; 85025

== ENCOUNTER 2021-10-14 09:00 | Outpatient (CLI) | payer MEDICARE, SELFPAY ==
[2021-10-14 10:30] LABS: Albumin Level 3.6 g/dL (3.4-5.0); Anion Gap 10 mmol/L (8-16); Blood Urea Nitrogen 40 mg/dL (7-18); Calcium 9.5 mg/dL (8.5-10.1); Carbon Dioxide 30 mmol/L (21-32); Chloride 108 mmol/L (98-108); Estimated Glomerular Filt Rate 21; Glucose 93 mg/dL (70-99); Osmolality Calculated 315 mOsm/kg (285-295); Potassium 4.2 mmol/L (3.5-5.1); Sodium 148 mmol/L (136-145)
== END 2021-10-14 09:01 | disposition home or self-care (01) ==
LOC: CHSLAB 09:02
PROVIDERS: PCP Family Medicine; Visit Provider Internal Medicine Nephrology
DX: N18.4 Chronic kidney disease, stage 4 (severe) (principal)
CPT/HCPCS: 36415; 80069

== ENCOUNTER 2021-12-02 07:45 | Outpatient (CLI) | payer MEDICARE, SELFPAY ==
[2021-12-02 08:07] LABS: Basophils Absolute Auto 0.05 K/mm3 (0.00-0.10); Basophils Percent Auto 0.6 % (0.0-1.0); Eosinophils Absolute Auto 0.28 K/mm3 (0.02-0.50); Eosinophils Percent Auto 3.4 % (1.0-6.0); Hematocrit 39.3 % (35.0-42.0); Hemoglobin 12.4 g/dL (11.7-13.8); Immature Granulocyte Absolute 0.04 K/mm3 (0.00-0.00); Immature Granulocyte Percent A 0.5 % (0.0-0.0); Lymphocytes Absolute Auto 1.59 K/mm3 (1.10-4.50); Lymphocytes Percent Auto 19.4 % (18.0-42.0); Mean Corpuscular HGB Conc 31.6 g/dL (32.0-36.0); Mean Platelet Volume 10.5 fl (9.2-11.8); Monocytes Percent Auto 8.5 % (2.0-11.0); Neutrophils Absolute Auto 5.5 K/mm3 (1.7-7.2); Neutrophils Percent Auto 67.6 % (50.0-70.0); Platelet Count Result 266 K/mm3 (150-420); Red Blood Count 4.27 M/mm3 (4.20-5.40); Red Cell Distribution Width 12.9 % (11.6-14.4); White Blood Count 8.2 K/mm3 (4.8-10.8)
[2021-12-02 08:36] LABS: Creatinine Urine 72.59 mg/dL (40-278)
[2021-12-02 08:39] LABS: Microalbumin Urine Random 284.6 mg/L
[2021-12-02 08:42] LABS: Alanine Aminotransferase 26 U/L (14-59); Albumin Level 3.6 g/dL (3.4-5.0); Alkaline Phosphatase 96 U/L (46-116); Anion Gap 9 mmol/L (8-16); Aspartate Amino Transferase 13 U/L (15-37); Bilirubin,Total 0.3 mg/dL (0.00-1.00); Blood Urea Nitrogen 24 mg/dL (7-18); Calcium 9.5 mg/dL (8.5-10.1); Carbon Dioxide 29 mmol/L (21-32); Chloride 108 mmol/L (98-108); Cholesterol 129 mg/dL (0-200); Estimated Glomerular Filt Rate 27; Glucose 91 mg/dL (70-99); HDL Direct 47 mg/dL (40-60); LDL Cholesterol Calculated 55 mg/dL (<130); Osmolality Calculated 306 mOsm/kg (285-295); Sodium 146 mmol/L (136-145); Total Protein 6.9 g/dL (6.4-8.2); Triglycerides 134 mg/dL (0-150)
== END 2021-12-02 07:46 | disposition home or self-care (01) ==
LOC: CHSLAB 07:47
PROVIDERS: PCP Family Medicine; Visit Provider Family Medicine
DX: E78.2 Mixed hyperlipidemia (principal); I10 Essential (primary) hypertension
CPT/HCPCS: 36415; 80053; 80061; 82043; 85025

== ENCOUNTER 2021-12-08 09:53 | Outpatient (CLI) | payer MEDICARE, SELFPAY ==
--- NOTE | ~2021-12-08 | CT_ITS ---
EXAMINATION: CT lung screening DATE: 12/08/2021 10:22 INDICATION: Personal history of tobacco dependence. TECHNIQUE: Computed tomography (CT) of the chest was performed without intravenous contrast. The dose -length product was 152.46 mGy-cm. Automated exposure control and iterative reconstruction technique were employed. COMPARISON: None FINDINGS: Moderate pericardial effusion. No significant pleural effusion. No thoracic lymphadenopathy . 1.9 cm low-density lesion right hepatic lobe, most likely benign cysts. There are calcified granulo mas in the spleen. There are cholecystectomy clips. Mild emphysema. There is dependent atelectasis. T here is a 3 mm right lower lobe nodule, image 85. There is 2 mm left upper lobe nodule along the fiss ure, image 35. No pneumothorax. No endobronchial lesions. IMPRESSION: 1. Lung-RADS category 2: Benign appearance or behavior. Continue annual screening with noncontrast lo w-dose chest CT in 12 months. 2: Moderate pericardial effusion. Reviewed, dictated and finalized at location A. [employer] IMPRESSION: 1. Lung-RADS category 2: Benign appearance or behavior. Continue annual screeni ng with noncontrast low-dose chest CT in 12 months. 2: Moderate pericardial effusion.
== END 2021-12-08 09:54 | disposition home or self-care (01) ==
LOC: CHSIMG 09:54
PROVIDERS: PCP Family Medicine; Visit Provider Family Medicine
DX: Z12.2 Encounter for screening for malignant neoplasm of respiratory organs (principal); Z87.891 Personal history of nicotine dependence
CPT/HCPCS: 71271

== ENCOUNTER 2022-02-10 08:15 | Outpatient (CLI) | payer MEDICARE, SELFPAY ==
[2022-02-10 08:41] LABS: Creatinine Urine 159.02 mg/dL (40-278); Total Protein Urine Random 55.9 mg/dL (0.0-11.9); Ur Ttl Prot Creatinine Ratio 0.35 mg/mg (0-0.20)
[2022-02-10 08:47] LABS: Albumin Level 3.6 g/dL (3.4-5.0); Anion Gap 7 mmol/L (8-16); Blood Urea Nitrogen 35 mg/dL (7-18); Calcium 9.8 mg/dL (8.5-10.1); Carbon Dioxide 28 mmol/L (21-32); Chloride 106 mmol/L (98-108); Estimated Glomerular Filt Rate 21; Glucose 110 mg/dL (70-99); Osmolality Calculated 301 mOsm/kg (285-295); Phosphorus 4.4 mg/dL (2.6-4.7); Sodium 141 mmol/L (136-145)
[2022-02-13 23:06] LABS: Vitamin D 25 Hydroxy 31 ng/mL (30-100)
[2022-02-15 06:29] LABS: Parathyroid Intact 41 pg/mL (14-64)
== END 2022-02-10 08:16 | disposition home or self-care (01) ==
LOC: CHSLAB 08:17
PROVIDERS: PCP Family Medicine; Visit Provider Internal Medicine Nephrology
DX: I12.9 Hypertensive chronic kidney disease with stage 1 through stage 4 chronic kidney disease, or unspecified chronic kidney disease (principal); N18.4 Chronic kidney disease, stage 4 (severe); R80.8 Other proteinuria
CPT/HCPCS: 36415; 80069; 82306; 82570; 83970; 84156

== ENCOUNTER 2022-05-01 16:19 | Outpatient (CLI) | payer MEDICARE, SELFPAY ==
--- NOTE | ~2022-05-01 | XR_ITS ---
EXAM: XR foot LT min 3V DATE: 05/01/2022 16:44 HISTORY: pain in LT foot @ 1st digit . COMPARISON: 07/19/2020. FINDINGS: Decreased mineralization. No fracture or dislocation. No lytic or blastic lesion. Scattere d degenerative changes. Plantar and Achilles enthesopathy. Moderate hallux valgus.. No erosion or per iosteal change. Soft tissues within normal limits. IMPRESSION: No acute osseous finding in the left foot. Reviewed, dictated and finalized at location K.
--- NOTE | ~2022-05-01 | XR_ITS ---
XR foot RT min 3V 05/01/2022 16:44 Indication: Right foot pain with limited movement. Procedure: 4 views right foot Comparison: 08/21/2017 Findings: There is moderate-severe osteoarthritis of the first MTP joint with hallux valgus. Osteopen ia. No acute fracture or traumatic malalignment. There are accessory ossicles adjacent to the navicul ar. There is a small degenerative calcaneal enthesophyte posteriorly. Impression: 1: Stable moderate-severe osteoarthritis of the first MTP joint with hallux valgus deformity. Reviewed, dictated and finalized at location A. Impression: 1: Stable moderate-severe osteoarthritis of the first MTP joint with hallux dianelys chio deformity.
== END 2022-05-01 16:20 | disposition home or self-care (01) ==
LOC: CHSIMG 16:21
PROVIDERS: PCP Family Medicine; Visit Provider Family Medicine
DX: M79.672 Pain in left foot (principal); M79.671 Pain in right foot
CPT/HCPCS: 73630

== ENCOUNTER 2022-06-09 10:17 | Outpatient (CLI) | payer MEDICARE, SELFPAY ==
[2022-06-09 10:31] LABS: Basophils Absolute Auto 0.04 K/mm3 (0.00-0.10); Basophils Percent Auto 0.5 % (0.0-1.0); Eosinophils Absolute Auto 0.25 K/mm3 (0.02-0.50); Eosinophils Percent Auto 3.3 % (1.0-6.0); Hematocrit 33.6 % (35.0-42.0); Hemoglobin 11.3 g/dL (11.7-13.8); Immature Granulocyte Absolute 0.05 K/mm3 (0.00-0.00); Immature Granulocyte Percent A 0.7 % (0.0-0.0); Lymphocytes Absolute Auto 1.21 K/mm3 (1.10-4.50); Lymphocytes Percent Auto 16.1 % (18.0-42.0); Mean Corpuscular HGB Conc 33.6 g/dL (32.0-36.0); Mean Corpuscular Hemoglobin 30.3 pg (27.0-31.0); Mean Corpuscular Volume 90.1 fL (78.0-102.0); Mean Platelet Volume 10.3 fl (9.2-11.8); Monocytes Absolute Auto 0.69 K/mm3 (0.10-0.90); Monocytes Percent Auto 9.2 % (2.0-11.0); Neutrophils Absolute Auto 5.3 K/mm3 (1.7-7.2); Neutrophils Percent Auto 70.2 % (50.0-70.0); Platelet Count Result 267 K/mm3 (150-420); Red Blood Count 3.73 M/mm3 (4.20-5.40); Red Cell Distribution Width 13.9 % (11.6-14.4); White Blood Count 7.5 K/mm3 (4.8-10.8)
[2022-06-09 10:36] LABS: Add Urine Microscopic? YES; Appearance Urine Clear (Clear); Bilirubin Urine Negative (Negative); Blood Urine Negative (Negative); Color Urine Light Yellow (Yellow); Glucose Urine UA Negative (Negative); Ketones Urine Negative (Negative); Leukocyte Esterase Ur Negative (Negative); Nitrate Urine Negative (Negative); Protein Urine Trace (Negative); Urobilinogen Urine 0.2 mg/dL (0.2-1.0)
[2022-06-09 10:51] LABS: RBC Urine 0-2 /hpf (0-2); Squamous Epithelial Cell Urine Few /hpf (Few); WBC Urine 0-3 /hpf (0-3)
[2022-06-09 10:52] LABS: Bacteria Urine None seen /hpf
[2022-06-09 11:03] LABS: Anion Gap 13 mmol/L (8-16); Blood Urea Nitrogen 27 mg/dL (7-18); Calcium 9.8 mg/dL (8.5-10.1); Carbon Dioxide 23 mmol/L (21-32); Chloride 105 mmol/L (98-108); Estimated Glomerular Filt Rate 24; Glucose 107 mg/dL (70-99); Osmolality Calculated 297 mOsm/kg (285-295); Sodium 141 mmol/L (136-145); Thyroid Stimulating Hormone 0.84 uIU/mL (0.36-3.74)
== END 2022-06-09 10:18 | disposition home or self-care (01) ==
LOC: CHSLAB 10:21
PROVIDERS: PCP Family Medicine; Visit Provider Family Medicine
DX: I10 Essential (primary) hypertension (principal)
CPT/HCPCS: 36415; 80048; 81001; 84443; 85025

== ENCOUNTER 2022-06-15 07:54 | Outpatient (CLI) | payer MEDICARE, SELFPAY ==
[2022-06-15 08:29] LABS: Albumin Level 3.6 g/dL (3.4-5.0); Anion Gap 11 mmol/L (8-16); Blood Urea Nitrogen 39 mg/dL (7-18); Calcium 9.9 mg/dL (8.5-10.1); Carbon Dioxide 25 mmol/L (21-32); Chloride 105 mmol/L (98-108); Estimated Glomerular Filt Rate 20; Glucose 113 mg/dL (70-99); Osmolality Calculated 302 mOsm/kg (285-295); Phosphorus 4.2 mg/dL (2.6-4.7); Potassium 4.1 mmol/L (3.5-5.1); Sodium 141 mmol/L (136-145)
[2022-06-15 08:36] LABS: Total Protein Urine Random 23.1 mg/dL (0.0-11.9)
[2022-06-19 19:41] LABS: Parathyroid Intact 28 pg/mL (14-64)
[2022-06-20 12:26] LABS: Vitamin D 25 Hydroxy 40 ng/mL (30-100)
== END 2022-06-15 07:55 | disposition home or self-care (01) ==
LOC: CHSLAB 07:56
PROVIDERS: PCP Family Medicine; Visit Provider Internal Medicine Nephrology
DX: E55.9 Vitamin D deficiency, unspecified (principal); I12.9 Hypertensive chronic kidney disease with stage 1 through stage 4 chronic kidney disease, or unspecified chronic kidney disease; N18.4 Chronic kidney disease, stage 4 (severe)
CPT/HCPCS: 36415; 80069; 82306; 82570; 83970; 84156

== ENCOUNTER 2022-09-08 13:57 | Outpatient (CLI) | payer MEDICARE, SELFPAY ==
--- NOTE | ~2022-09-08 | XR_ITS ---
EXAMINATION: XR chest 2V 09/08/2022 14:22 INDICATION: Acute cough. PROCEDURE: PA and lateral views of the chest COMPARISON: No prior studies for comparison. FINDINGS: The lungs are clear. The cardiomediastinal silhouette is enlarged.. There are no pleural effusions. There is no pneumothorax suspected. There are spinal stimulator leads overlying the mid thoracic spine. There is atherosclerosis of the aorta. IMPRESSION: 1: NO ACUTE CARDIOPULMONARY DISEASE. Reviewed, dictated and finalized at location A. AZZO ROLLER
== END 2022-09-08 13:58 | disposition home or self-care (01) ==
LOC: CHSIMG 14:02
PROVIDERS: PCP Family Medicine; Visit Provider Family Medicine
DX: R05.1 Acute cough (principal)
CPT/HCPCS: 71046

== ENCOUNTER 2022-10-05 09:29 | Outpatient (CLI) | payer MEDICARE, SELFPAY ==
[2022-10-05 09:59] LABS: Basophils Absolute Auto 0.04 K/mm3 (0.00-0.10); Basophils Percent Auto 0.6 % (0.0-1.0); Eosinophils Absolute Auto 0.22 K/mm3 (0.02-0.50); Eosinophils Percent Auto 3.2 % (1.0-6.0); Hematocrit 36.5 % (35.0-42.0); Hemoglobin 11.7 g/dL (11.7-13.8); Immature Granulocyte Absolute 0.02 K/mm3 (0.00-0.00); Immature Granulocyte Percent A 0.3 % (0.0-0.0); Lymphocytes Absolute Auto 1.29 K/mm3 (1.10-4.50); Mean Corpuscular HGB Conc 32.1 g/dL (32.0-36.0); Mean Corpuscular Hemoglobin 28.3 pg (27.0-31.0); Mean Corpuscular Volume 88.4 fL (78.0-102.0); Mean Platelet Volume 11.3 fl (9.2-11.8); Monocytes Absolute Auto 0.65 K/mm3 (0.10-0.90); Monocytes Percent Auto 9.6 % (2.0-11.0); Neutrophils Absolute Auto 4.6 K/mm3 (1.7-7.2); Neutrophils Percent Auto 67.3 % (50.0-70.0); Platelet Count Result 251 K/mm3 (150-420); Red Blood Count 4.13 M/mm3 (4.20-5.40); Red Cell Distribution Width 13.2 % (11.6-14.4); White Blood Count 6.8 K/mm3 (4.8-10.8)
[2022-10-05 11:09] LABS: Alanine Aminotransferase 20 U/L (14-59); Albumin Level 3.8 g/dL (3.4-5.0); Alkaline Phosphatase 102 U/L (46-116); Anion Gap 11 mmol/L (8-16); Aspartate Amino Transferase 11 U/L (15-37); Bilirubin,Total 0.3 mg/dL (0.00-1.00); Blood Urea Nitrogen 44 mg/dL (7-18); Calcium 9.8 mg/dL (8.5-10.1); Carbon Dioxide 27 mmol/L (21-32); Chloride 106 mmol/L (98-108); Estimated Glomerular Filt Rate 19; Glucose 96 mg/dL (70-99); Osmolality Calculated 309 mOsm/kg (285-295); Sodium 144 mmol/L (136-145)
== END 2022-10-05 09:30 | disposition home or self-care (01) ==
LOC: CHSLAB 09:31
PROVIDERS: PCP Family Medicine; Visit Provider Family Medicine
DX: I10 Essential (primary) hypertension (principal)
CPT/HCPCS: 36415; 80053; 82608; 85025

== ENCOUNTER 2022-12-27 09:50 | Outpatient (RCR) | payer MEDICARE, SELFPAY ==
--- NOTE | 2022-12-27 15:59 | PTOPEVAL1 ---
Assessment and note entered by Andrew Palumbo Evaluation Information Assessment Status Evaluation Diagnosis left ankle instability, Onset 10/10/22 Subjective Information Pt. reports she has had left foot pain for years. She reports that she underwent surgery to correct the position of her ankle on 10/10/22. she reports she was in a cast for 77 days and placed in a boot yesterday. She states that she is currently walking with a cane. She reports that she will return to her doctor in 2 weeks, but is to wear the boot at all times. Pt. reports that prior to surgery was able to do her housework and community activities without assist. She reports that she was driving. She reports that her goal for therpay is to be able to return to walking normal. Reported Pain Level Pain Score 1: Self Report Assessment PT Clinical Summary Pt. is a 77 year old female post left ankle surgery to address instability. She presents with impaired ROM, impaired gait, pain and functional decline. Continued treatment is indicated in order to improve these areas to allow for independence with all IADL's. Plan of Care Interventions Electrical Stimulation,Gait Training,Hot Pack/Cold Pack,Manual Therapy,Neuro Re-education, Therapeutic Activities,Therapeutic Exercise PT Services Indicated Yes Treatment Frequency and 2x/week x 10 visits Duration These treatments will address the objective and functional deficits as defined above. The patient will be advanced safely and appropriately in order for the patient to progress towards his/her prior level of function. Additional exercises will be introduced and as well as a comprehensive home exercise program upon discharge, if needed, ?to ensure carryover of functional gains achieved in the clinic. This treatment plan has been reviewed and agreement upon by the patient.
--- NOTE | 2023-01-25 13:02 | PTOPREEVAL ---
Assessment and note entered by Yaz Dolan DPT Evaluation Information Assessment Status Re-evaluation Diagnosis left ankle instability, Onset 10/10/22 Subjective Information Patient reports that since starting PT she notices some improvement with walking. She is still in the boot. She report she was casted for a brace/ insert and when that comes in she is able to wean from the boot. She returns to [facility] in May . Reported Pain Level Pain Score 0: Self Report Assessment PT Clinical Summary Patient has been seen for 10 visits from 12/27/22-. She has made some improvement in L ankle strength and ROM but continues to lack full ROM and strength. She is still in a boot at this time but reports improvement in walking and standing. She has been fitted for an insert and will be weaned from the boot when appropriate. She will benefit from continued skilled PT address remaining impairments and return to PLOF. Plan of Care Interventions Electrical Stimulation,Gait Training,Hot Pack/Cold Pack,Manual Therapy,Neuro Re-education, Therapeutic Activities,Therapeutic Exercise PT Services Indicated Yes Treatment Frequency and 2x/week x 10 visits Duration These treatments will address the objective and functional deficits as defined above. The patient will be advanced safely and appropriately in order for the patient to progress towards his/her prior level of function. Additional exercises will be introduced and as well as a comprehensive home exercise program upon discharge, if needed, ?to ensure carryover of functional gains achieved in the clinic. This treatment plan has been reviewed and agreement upon by the patient.
--- NOTE | 2023-03-08 09:13 | PTOPPROG ---
Assessment and note entered by Anna Bryan, PT Evaluation Information Assessment Status Progress Diagnosis L ankle instability Onset 10/10/22 Subjective Information Juliana Pennington reports she is getting better overall. She has been using her cane for ambulation except occasionally in her kitchen. She is able to go up and down stairs with a rail to get into her home. She is able to tolerate standing for approximately 10 minutes before her lower back gets painful. She is able to walk about 1/4 of mile with her cane. She does feel her balance is still off especially when on grass. She has not had any falls though. Assessment PT Clinical Summary Juliana Pennington has completed 20 skilled visits following left ankle surgery to correct instability and deformity. She is reporting steady improvements in her ability to walk and perform daily activities however, she still notes balance deficits especially when she is out in her yard on the grass. She objectively demonstrates improving strength in the LE and core, gait, and balance. She does still demonstrate dynamic balance deficits with a moderate fall risk noted per standardized balance tests and decreased endurance . She will continue to benefit from skilled PT to further improve balance, safety with ADLs, and endurance. Plan of Care Interventions Gait Training,Neuro Re-education,Patient/Caregiver Educati,Therapeutic Activities,Therapeutic Exercise PT Services Indicated Yes Treatment Frequency and 2 times a week for 8 visits Duration These treatments will address the objective and functional deficits as defined above. The patient will be advanced safely and appropriately in order for the patient to progress towards his/her prior level of function. Additional exercises will be introduced and as well as a comprehensive home exercise program upon discharge, if needed, ?to ensure carryover of functional gains achieved in the clinic. This treatment plan has been reviewed and agreement upon by the patient.
--- NOTE | 2023-04-05 09:36 | PTOPDC ---
Assessment and note entered by Anna Bryan, PT Evaluation Information Assessment Status Discharge Diagnosis L ankle instability Onset 10/10/22 Subjective Information Juliana reports that her she is doing better overall . She continues to use her cane at all times except when she is working in the kitchen. She denies falls and has been able to return to all previous activity. Reported Pain Level Pain Score 0: Self Report Assessment PT Clinical Summary Juliana Pennington has completed 28 skilled PT visits following L ankle surgery. She has been able to return to all previous activity but has to use a cane now. She demonstrates improved strength, balance, gait, and endurance since her last progress note. She is now a low fall risk per the Tinetti Balance Test. She is independent in a home program to continue LE strengthening, balance, and LE flexibility. She will be discharged. Plan of Care PT Services Indicated Yes
== END 2023-04-05 10:46 | disposition home or self-care (01) ==
LOC: CHSPT 09:50
DX: Z47.89 Encounter for other orthopedic aftercare (principal)
CPT/HCPCS: 97016; 97110; 97112; 97150; 97161; 97530; 97750

== ENCOUNTER 2023-01-09 15:12 | Outpatient (CLI) | payer MEDICARE, SELFPAY ==
[2023-01-09 15:27] LABS: Basophils Absolute Auto 0.07 K/mm3 (0.00-0.10); Basophils Percent Auto 0.6 % (0.0-1.0); Eosinophils Absolute Auto 0.22 K/mm3 (0.02-0.50); Hematocrit 34.4 % (35.0-42.0); Hemoglobin 11.1 g/dL (11.7-13.8); Immature Granulocyte Absolute 0.04 K/mm3 (0.00-0.00); Immature Granulocyte Percent A 0.4 % (0.0-0.0); Lymphocytes Absolute Auto 1.72 K/mm3 (1.10-4.50); Lymphocytes Percent Auto 15.6 % (18.0-42.0); Mean Corpuscular HGB Conc 32.3 g/dL (32.0-36.0); Mean Corpuscular Volume 89.8 fL (78.0-102.0); Mean Platelet Volume 10.5 fl (9.2-11.8); Monocytes Absolute Auto 0.99 K/mm3 (0.10-0.90); Neutrophils Percent Auto 72.4 % (50.0-70.0); Platelet Count Result 327 K/mm3 (150-420); Red Blood Count 3.83 M/mm3 (4.20-5.40); Red Cell Distribution Width 13.3 % (11.6-14.4); White Blood Count 11.1 K/mm3 (4.8-10.8)
[2023-01-09 15:55] LABS: Alanine Aminotransferase 18 U/L (14-59); Albumin Level 3.8 g/dL (3.4-5.0); Alkaline Phosphatase 171 U/L (46-116); Anion Gap 11 mmol/L (8-16); Aspartate Amino Transferase 12 U/L (15-37); Bilirubin,Total 0.3 mg/dL (0.00-1.00); Blood Urea Nitrogen 41 mg/dL (7-18); Calcium 9.7 mg/dL (8.5-10.1); Carbon Dioxide 30 mmol/L (21-32); Chloride 106 mmol/L (98-108); Estimated Glomerular Filt Rate 21; Glucose 92 mg/dL (70-99); Osmolality Calculated 314 mOsm/kg (285-295); Potassium 3.7 mmol/L (3.5-5.1); Sodium 147 mmol/L (136-145); Total Protein 7.1 g/dL (6.4-8.2)
[2023-01-09 17:07] LABS: Ferritin 77 ng/mL (8-252); Iron 34 ug/dL (50-170); Percent Iron Saturation 11 % (12-57)
[2023-01-12 22:24] LABS: Rotavirus Stool Not Detected
== END 2023-01-09 15:13 | disposition home or self-care (01) ==
LOC: CHSLAB 15:15
PROVIDERS: PCP Family Medicine; Visit Provider Nurse Practitioner Family
DX: R19.7 Diarrhea, unspecified (principal); N18.9 Chronic kidney disease, unspecified
CPT/HCPCS: 36415; 80053; 82728; 83540; 83550; 84376; 85025; 87045; 87177; 87209; 87324; 87425; 87427

== ENCOUNTER 2023-01-16 12:10 | Outpatient (CLI) | payer MEDICARE, SELFPAY ==
--- NOTE | ~2023-01-16 | US_ITS ---
EXAMINATION:US venous doppler [facility] INDICATION:Elevated d-dimer. Phlebitis. TECHNIQUE: Multiple grayscale, color flow and Doppler images of the right and left lower extremity de ep venous systems were obtained and reviewed. COMPARISON:Ultrasound dated 08/05/2020 FINDINGS: The common femoral, superficial femoral and popliteal veins demonstrate normal respiratory variation, augmentation and compressibility. Color flow is also seen within the posterior tibial, pe roneal, greater saphenous and profunda veins. In the area of palpable concern posterior medial distal thigh on the left there is a small fluid collection with irregular margins which may represent hemat blayne or seroma. Infection is not excluded. IMPRESSION: 1: No lower extremity deep venous thrombosis. 2: Small irregular complex fluid collection left distal calf posteriorly in the area of pain which m ay represent a hematoma, seroma or infection. Reviewed, dictated and finalized at location L. IMPRESSION: 1: No lower extremity deep venous thrombosis. 2: Small irregular complex fluid collection left distal calf posteriorly in th e area of pain which may represent a hematoma, seroma or infection.
[2023-01-16 12:22] LABS: Basophils Absolute Auto 0.05 K/mm3 (0.00-0.10); Basophils Percent Auto 0.5 % (0.0-1.0); Eosinophils Absolute Auto 0.13 K/mm3 (0.02-0.50); Eosinophils Percent Auto 1.4 % (1.0-6.0); Hematocrit 34.1 % (35.0-42.0); Immature Granulocyte Absolute 0.04 K/mm3 (0.00-0.00); Immature Granulocyte Percent A 0.4 % (0.0-0.0); Lymphocytes Absolute Auto 1.36 K/mm3 (1.10-4.50); Lymphocytes Percent Auto 14.5 % (18.0-42.0); Mean Corpuscular HGB Conc 32.3 g/dL (32.0-36.0); Mean Corpuscular Hemoglobin 28.6 pg (27.0-31.0); Mean Corpuscular Volume 88.8 fL (78.0-102.0); Mean Platelet Volume 10.4 fl (9.2-11.8); Monocytes Absolute Auto 0.79 K/mm3 (0.10-0.90); Monocytes Percent Auto 8.4 % (2.0-11.0); Neutrophils Percent Auto 74.8 % (50.0-70.0); Platelet Count Result 352 K/mm3 (150-420); Red Blood Count 3.84 M/mm3 (4.20-5.40); Red Cell Distribution Width 13.2 % (11.6-14.4); White Blood Count 9.4 K/mm3 (4.8-10.8)
[2023-01-16 12:48] LABS: Alanine Aminotransferase 18 U/L (14-59); Albumin Level 3.5 g/dL (3.4-5.0); Alkaline Phosphatase 146 U/L (46-116); Anion Gap 10 mmol/L (8-16); Aspartate Amino Transferase 13 U/L (15-37); Bilirubin,Total 0.2 mg/dL (0.00-1.00); Blood Urea Nitrogen 37 mg/dL (7-18); Calcium 9.2 mg/dL (8.5-10.1); Carbon Dioxide 26 mmol/L (21-32); Chloride 108 mmol/L (98-108); Estimated Glomerular Filt Rate 21; Glucose 105 mg/dL (70-99); Osmolality Calculated 306 mOsm/kg (285-295); Potassium 3.7 mmol/L (3.5-5.1); Sodium 144 mmol/L (136-145); Total Protein 6.5 g/dL (6.4-8.2)
[2023-01-16 13:07] LABS: D Dimer 2.18 mg/L (0.19-0.50)
== END 2023-01-16 12:11 | disposition home or self-care (01) ==
PROVIDERS: PCP Family Medicine; Visit Provider Family Medicine
DX: L03.116 Cellulitis of left lower limb (principal); M79.89 Other specified soft tissue disorders
CPT/HCPCS: 36415; 80053; 85025; 85380; 93970

== ENCOUNTER 2023-02-13 08:37 | Outpatient (CLI) | payer MEDICARE, SELFPAY ==
[2023-02-13 08:54] LABS: Basophils Absolute Auto 0.07 K/mm3 (0.00-0.10); Eosinophils Absolute Auto 0.22 K/mm3 (0.02-0.50); Eosinophils Percent Auto 3.1 % (1.0-6.0); Hematocrit 35.6 % (35.0-42.0); Hemoglobin 11.5 g/dL (11.7-13.8); Immature Granulocyte Absolute 0.03 K/mm3 (0.00-0.00); Immature Granulocyte Percent A 0.4 % (0.0-0.0); Lymphocytes Absolute Auto 1.29 K/mm3 (1.10-4.50); Lymphocytes Percent Auto 18.2 % (18.0-42.0); Mean Corpuscular HGB Conc 32.3 g/dL (32.0-36.0); Mean Corpuscular Hemoglobin 29.2 pg (27.0-31.0); Mean Corpuscular Volume 90.4 fL (78.0-102.0); Mean Platelet Volume 10.5 fl (9.2-11.8); Monocytes Absolute Auto 0.64 K/mm3 (0.10-0.90); Neutrophils Absolute Auto 4.9 K/mm3 (1.7-7.2); Neutrophils Percent Auto 68.3 % (50.0-70.0); Platelet Count Result 250 K/mm3 (150-420); Red Blood Count 3.94 M/mm3 (4.20-5.40); Red Cell Distribution Width 13.2 % (11.6-14.4); White Blood Count 7.1 K/mm3 (4.8-10.8)
[2023-02-13 08:58] LABS: Appearance Urine Clear (Clear); Bilirubin Urine Negative (Negative); Blood Urine Negative (Negative); Color Urine Light Yellow (Yellow); Glucose Urine UA Negative (Negative); Ketones Urine Negative (Negative); Leukocyte Esterase Ur Negative (Negative); Nitrate Urine Negative (Negative); Protein Urine Trace (Negative); Specific Grav Ur 1.025 (1.010-1.020); Urobilinogen Urine 0.2 mg/dL (0.2-1.0)
[2023-02-13 09:04] LABS: Add Urine Microscopic? YES; Bacteria Urine Rare /hpf; RBC Urine None seen /hpf (0-2); Squamous Epithelial Cell Urine Occasional /hpf (Few); WBC Urine None seen /hpf (0-3)
[2023-02-13 09:11] LABS: Creatinine Urine 107.59 mg/dL (40-278)
[2023-02-13 09:12] LABS: MALB Creatinine Ratio 199.2 mg/g (0-30); Microalbumin Urine Random 214.4 mg/L
[2023-02-13 09:38] LABS: Anion Gap 8 mmol/L (8-16); Blood Urea Nitrogen 34 mg/dL (7-18); Calcium 9.8 mg/dL (8.5-10.1); Carbon Dioxide 30 mmol/L (21-32); Chloride 108 mmol/L (98-108); Cholesterol 137 mg/dL (0-200); Estimated Glomerular Filt Rate 21; Glucose 98 mg/dL (70-99); HDL Direct 39 mg/dL (40-60); LDL Cholesterol Calculated 60 mg/dL (<130); Osmolality Calculated 309 mOsm/kg (285-295); Potassium 4.1 mmol/L (3.5-5.1); Sodium 146 mmol/L (136-145); Thyroid Stimulating Hormone 0.87 uIU/mL (0.36-3.74); Triglycerides 189 mg/dL (0-150)
== END 2023-02-13 08:38 | disposition home or self-care (01) ==
LOC: CHSLAB 08:39
PROVIDERS: PCP Family Medicine; Visit Provider Family Medicine
DX: I10 Essential (primary) hypertension (principal); E78.2 Mixed hyperlipidemia
CPT/HCPCS: 36415; 80048; 80061; 81001; 82043; 84443; 85025

== ENCOUNTER 2023-03-30 09:19 | Outpatient (CLI) | payer MEDICARE, SELFPAY ==
[2023-03-30 09:32] LABS: Basophils Absolute Auto 0.05 K/mm3 (0.00-0.10); Basophils Percent Auto 0.7 % (0.0-1.0); Eosinophils Absolute Auto 0.26 K/mm3 (0.02-0.50); Eosinophils Percent Auto 3.6 % (1.0-6.0); Hematocrit 35.8 % (35.0-42.0); Hemoglobin 11.7 g/dL (11.7-13.8); Immature Granulocyte Absolute 0.03 K/mm3 (0.00-0.00); Immature Granulocyte Percent A 0.4 % (0.0-0.0); Lymphocytes Absolute Auto 1.14 K/mm3 (1.10-4.50); Lymphocytes Percent Auto 15.9 % (18.0-42.0); Mean Corpuscular HGB Conc 32.7 g/dL (32.0-36.0); Mean Corpuscular Hemoglobin 29.2 pg (27.0-31.0); Mean Corpuscular Volume 89.3 fL (78.0-102.0); Mean Platelet Volume 10.3 fl (9.2-11.8); Monocytes Absolute Auto 0.66 K/mm3 (0.10-0.90); Monocytes Percent Auto 9.2 % (2.0-11.0); Neutrophils Percent Auto 70.2 % (50.0-70.0); Platelet Count Result 272 K/mm3 (150-420); Red Blood Count 4.01 M/mm3 (4.20-5.40); White Blood Count 7.2 K/mm3 (4.8-10.8)
== END 2023-03-30 09:20 | disposition home or self-care (01) ==
LOC: CHSLAB 09:22
PROVIDERS: PCP Family Medicine; Visit Provider Family Medicine
DX: D64.9 Anemia, unspecified (principal)
CPT/HCPCS: 36415; 85025

== ENCOUNTER 2023-05-15 08:11 | Outpatient (CLI) | payer MEDICARE, SELFPAY ==
[2023-05-15 08:51] LABS: Creatinine Urine 123.63 mg/dL (40-278); Total Protein Urine Random 61.8 mg/dL (0.0-11.9)
[2023-05-15 09:00] LABS: Basophils Absolute Auto 0.05 K/mm3 (0.00-0.10); Basophils Percent Auto 0.6 % (0.0-1.0); Eosinophils Absolute Auto 0.21 K/mm3 (0.02-0.50); Eosinophils Percent Auto 2.4 % (1.0-6.0); Hematocrit 36.7 % (35.0-42.0); Hemoglobin 11.7 g/dL (11.7-13.8); Immature Granulocyte Absolute 0.06 K/mm3 (0.00-0.00); Immature Granulocyte Percent A 0.7 % (0.0-0.0); Lymphocytes Absolute Auto 1.07 K/mm3 (1.10-4.50); Lymphocytes Percent Auto 12.1 % (18.0-42.0); Mean Corpuscular HGB Conc 31.9 g/dL (32.0-36.0); Mean Corpuscular Hemoglobin 28.7 pg (27.0-31.0); Mean Corpuscular Volume 90.2 fL (78.0-102.0); Mean Platelet Volume 11.9 fl (9.2-11.8); Monocytes Absolute Auto 0.83 K/mm3 (0.10-0.90); Monocytes Percent Auto 9.4 % (2.0-11.0); Neutrophils Absolute Auto 6.6 K/mm3 (1.7-7.2); Neutrophils Percent Auto 74.8 % (50.0-70.0); Platelet Count Result 248 K/mm3 (150-420); Red Blood Count 4.07 M/mm3 (4.20-5.40); Red Cell Distribution Width 13.1 % (11.6-14.4); White Blood Count 8.9 K/mm3 (4.8-10.8)
[2023-05-15 09:08] LABS: Albumin Level 3.2 g/dL (3.4-5.0); Anion Gap 11 mmol/L (8-16); Blood Urea Nitrogen 37 mg/dL (7-18); Calcium 9.1 mg/dL (8.5-10.1); Carbon Dioxide 27 mmol/L (21-32); Chloride 108 mmol/L (98-108); Estimated Glomerular Filt Rate 22; Glucose 101 mg/dL (70-99); Osmolality Calculated 310 mOsm/kg (285-295); Phosphorus 4.3 mg/dL (2.6-4.7); Potassium 4.1 mmol/L (3.5-5.1); Sodium 146 mmol/L (136-145); Uric Acid 8.5 mg/dL (2.6-6.0)
[2023-05-20 22:44] LABS: Parathyroid Intact 64 pg/mL (14-64); Vitamin D 25 Hydroxy 33 ng/mL (30-100)
== END 2023-05-15 08:12 | disposition home or self-care (01) ==
LOC: CHSLAB 08:12
PROVIDERS: PCP Family Medicine; Visit Provider Internal Medicine Nephrology
DX: N25.81 Secondary hyperparathyroidism of renal origin (principal); I12.9 Hypertensive chronic kidney disease with stage 1 through stage 4 chronic kidney disease, or unspecified chronic kidney disease; N18.4 Chronic kidney disease, stage 4 (severe); I10 Essential (primary) hypertension; M10.9 Gout, unspecified; R80.8 Other proteinuria; E55.9 Vitamin D deficiency, unspecified
CPT/HCPCS: 36415; 80069; 82306; 82570; 83970; 84156; 84550; 85025

== ENCOUNTER 2023-08-17 08:52 | Outpatient (CLI) | payer MEDICARE, SELFPAY ==
[2023-08-17 09:05] LABS: Basophils Absolute Auto 0.04 K/mm3 (0.00-0.10); Basophils Percent Auto 0.5 % (0.0-1.0); Eosinophils Absolute Auto 0.31 K/mm3 (0.02-0.50); Eosinophils Percent Auto 3.7 % (1.0-6.0); Hematocrit 37.8 % (35.0-42.0); Hemoglobin 12.4 g/dL (11.7-13.8); Immature Granulocyte Absolute 0.03 K/mm3 (0.00-0.00); Immature Granulocyte Percent A 0.4 % (0.0-0.0); Lymphocytes Absolute Auto 1.32 K/mm3 (1.10-4.50); Lymphocytes Percent Auto 15.8 % (18.0-42.0); Mean Corpuscular HGB Conc 32.8 g/dL (32.0-36.0); Mean Corpuscular Hemoglobin 29.2 pg (27.0-31.0); Mean Corpuscular Volume 88.9 fL (78.0-102.0); Monocytes Absolute Auto 0.76 K/mm3 (0.10-0.90); Monocytes Percent Auto 9.1 % (2.0-11.0); Neutrophils Absolute Auto 5.9 K/mm3 (1.7-7.2); Neutrophils Percent Auto 70.5 % (50.0-70.0); Platelet Count Result 265 K/mm3 (150-420); Red Blood Count 4.25 M/mm3 (4.20-5.40); Red Cell Distribution Width 12.6 % (11.6-14.4); White Blood Count 8.4 K/mm3 (4.8-10.8)
[2023-08-17 09:07] LABS: Appearance Urine Clear (Clear); Bilirubin Urine Negative (Negative); Blood Urine Negative (Negative); Color Urine Light Yellow (Yellow); Glucose Urine UA Negative (Negative); Ketones Urine Negative (Negative); Leukocyte Esterase Ur Trace (Negative); Nitrate Urine Negative (Negative); Protein Urine 1+ (Negative); Specific Grav Ur 1.025 (1.010-1.020); Urobilinogen Urine 0.2 mg/dL (0.2-1.0)
[2023-08-17 09:18] LABS: Add Urine Microscopic? YES; Bacteria Urine 2+ /hpf; RBC Urine 0-2 /hpf (0-2); Squamous Epithelial Cell Urine Moderate /hpf (Few)
[2023-08-17 09:21] LABS: Creatinine Urine 122.53 mg/dL (40-278)
[2023-08-17 09:23] LABS: MALB Creatinine Ratio 210.1 mg/g (0-30); Microalbumin Urine Random 257.5 mg/L
[2023-08-17 10:14] LABS: Alanine Aminotransferase 19 U/L (14-59); Albumin Level 3.4 g/dL (3.4-5.0); Alkaline Phosphatase 132 U/L (46-116); Anion Gap 9 mmol/L (8-16); Aspartate Amino Transferase < 10 U/L (15-37); Bilirubin,Total 0.2 mg/dL (0.00-1.00); Blood Urea Nitrogen 35 mg/dL (7-18); Calcium 10.2 mg/dL (8.5-10.1); Carbon Dioxide 29 mmol/L (21-32); Chloride 107 mmol/L (98-108); Cholesterol 143 mg/dL (0-200); Estimated Glomerular Filt Rate 22; Glucose 98 mg/dL (70-99); HDL Direct 41 mg/dL (40-60); LDL Cholesterol Calculated 69 mg/dL (<130); Osmolality Calculated 308 mOsm/kg (285-295); Potassium 4.2 mmol/L (3.5-5.1); Sodium 145 mmol/L (136-145); Total Protein 6.7 g/dL (6.4-8.2); Triglycerides 163 mg/dL (0-150); Uric Acid 8.4 mg/dL (2.6-6.0)
== END 2023-08-17 08:53 | disposition home or self-care (01) ==
LOC: CHSLAB 08:54
PROVIDERS: PCP Family Medicine; Visit Provider Family Medicine
DX: I10 Essential (primary) hypertension (principal); M10.9 Gout, unspecified; N18.9 Chronic kidney disease, unspecified
CPT/HCPCS: 36415; 80053; 80061; 81001; 82043; 84550; 85025

== ENCOUNTER 2023-08-23 09:46 | Outpatient (CLI) | payer MEDICARE, SELFPAY ==
--- NOTE | ~2023-08-23 | XR_ITS ---
Right foot Technique: AP, oblique, and lateral views were obtained. Clinical History: Pain, gout Findings: No acute fracture or dislocation is seen. There is hallux valgus with mild to moderate dege nerative change at the first metatarsophalangeal joint region. No erosive change identified. Soft tis sues are unremarkable. Impression: No evidence for inflammatory arthropathy or erosive change. 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 Reviewed, dictated and finalized at location [facility] Impression: No evidence for inflammatory arthropathy or erosive change. Hallux valgus with mild to moderate osteoarthritis at the first metatarsophalan geal joint region.
== END 2023-08-23 09:47 | disposition home or self-care (01) ==
LOC: CHSIMG 09:48
PROVIDERS: PCP Family Medicine; Visit Provider Family Medicine
DX: M10.9 Gout, unspecified (principal); M20.11 Hallux valgus (acquired), right foot; M19.071 Primary osteoarthritis, right ankle and foot
CPT/HCPCS: 73630

== ENCOUNTER 2023-10-16 08:29 | Outpatient (CLI) | payer MEDICARE, SELFPAY ==
[2023-10-16 08:59] LABS: Creatinine Urine 146.48 mg/dL (40-278); Total Protein Urine Random 43.7 mg/dL (0.0-11.9)
[2023-10-16 09:33] LABS: Albumin Level 3.5 g/dL (3.4-5.0); Anion Gap 15 mmol/L (8-16); Blood Urea Nitrogen 42 mg/dL (7-18); Calcium 9.2 mg/dL (8.5-10.1); Carbon Dioxide 23 mmol/L (21-32); Chloride 109 mmol/L (98-108); Estimated Glomerular Filt Rate 17; Glucose 94 mg/dL (70-99); Osmolality Calculated 314 mOsm/kg (285-295); Phosphorus 3.7 mg/dL (2.6-4.7); Potassium 3.6 mmol/L (3.5-5.1); Sodium 147 mmol/L (136-145)
== END 2023-10-16 08:30 | disposition home or self-care (01) ==
LOC: CHSLAB 08:31
PROVIDERS: PCP Family Medicine; Visit Provider Internal Medicine Nephrology
DX: I12.9 Hypertensive chronic kidney disease with stage 1 through stage 4 chronic kidney disease, or unspecified chronic kidney disease (principal); N18.4 Chronic kidney disease, stage 4 (severe)
CPT/HCPCS: 36415; 80069; 82570; 84156

== ENCOUNTER 2024-02-05 08:18 | Outpatient (CLI) | payer MEDICARE, SELFPAY ==
[2024-02-05 09:02] LABS: Basophils Absolute Auto 0.06 K/mm3 (0.00-0.10); Basophils Percent Auto 0.8 % (0.0-1.0); Eosinophils Absolute Auto 0.36 K/mm3 (0.02-0.50); Eosinophils Percent Auto 4.9 % (1.0-6.0); Hematocrit 37.1 % (35.0-42.0); Hemoglobin 11.7 g/dL (11.7-13.8); Immature Granulocyte Absolute 0.02 K/mm3 (0.00-0.00); Immature Granulocyte Percent A 0.3 % (0.0-0.0); Lymphocytes Absolute Auto 1.31 K/mm3 (1.10-4.50); Lymphocytes Percent Auto 17.7 % (18.0-42.0); Mean Corpuscular HGB Conc 31.5 g/dL (32-36); Mean Corpuscular Volume 88.8 fL (78.0-102.0); Mean Platelet Volume 10.9 fl (9.2-11.8); Monocytes Absolute Auto 0.68 K/mm3 (0.10-0.90); Monocytes Percent Auto 9.2 % (2.0-11.0); Neutrophils Absolute Auto 4.99 K/mm3 (1.70-7.20); Neutrophils Percent Auto 67.1 % (50.0-70.0); Platelet Count Result 276 K/mm3 (150-420); Red Blood Count 4.18 M/mm3 (4.20-5.40); Red Cell Distribution Width 12.7 % (11.6-14.4); White Blood Count 7.4 K/mm3 (4.8-10.8)
[2024-02-05 10:03] LABS: Creatinine Urine 84.66 mg/dL (40-278); Total Protein Urine Random 44.7 mg/dL (0.0-11.9); Ur Ttl Prot Creatinine Ratio 0.53 mg/mg (0-0.20)
[2024-02-05 10:18] LABS: Albumin Level 3.5 g/dL (3.4-5.0); Anion Gap 11 mmol/L (4-12); Blood Urea Nitrogen 41 mg/dL (7-18); Calcium 9.5 mg/dL (8.5-10.1); Carbon Dioxide 26 mmol/L (21-32); Chloride 106 mmol/L (98-108); Estimated Glomerular Filt Rate 21; Glucose 92 mg/dL (70-99); Osmolality Calculated 306 mOsm/kg (285-295); Phosphorus 4.8 mg/dL (2.6-4.7); Potassium 3.9 mmol/L (3.5-5.1); Sodium 143 mmol/L (136-145); Thyroid Stimulating Hormone 0.49 uIU/mL (0.36-3.74)
[2024-02-05 14:46] LABS: Alanine Aminotransferase 21 U/L (14-59); Alkaline Phosphatase 122 U/L (46-116); Aspartate Amino Transferase 16 U/L (15-37); Bilirubin,Total 0.4 mg/dL (0.00-1.00); Total Protein 6.7 g/dL (6.4-8.2)
[2024-02-06 16:33] LABS: Parathyroid Intact 36 pg/mL (16-77)
[2024-02-07 04:29] LABS: Vitamin D 25 Hydroxy 33 ng/mL (30-100)
== END 2024-02-05 08:19 | disposition home or self-care (01) ==
LOC: CHSLAB 08:23
PROVIDERS: PCP Family Medicine; Visit Provider Internal Medicine Nephrology
DX: I12.9 Hypertensive chronic kidney disease with stage 1 through stage 4 chronic kidney disease, or unspecified chronic kidney disease (principal); E55.9 Vitamin D deficiency, unspecified; N18.4 Chronic kidney disease, stage 4 (severe); N25.81 Secondary hyperparathyroidism of renal origin
CPT/HCPCS: 36415; 80053; 80069; 82306; 82570; 83970; 84100; 84156; 84443; 85025

== ENCOUNTER 2024-02-13 00:55 | Day surgery (SDC) | payer MEDICARE, SELFPAY ==
[2024-01-29 11:41] VITALS: BMI 25.9
[2024-02-13 11:38] VITALS: BP 138/76; PULSE 98; RESP 18; TEMP 36.3; O2SAT 99
[2024-02-13] MEDS: LACTATED RINGERS 1,000 ML 150 ML IV CONT (12:03)
--- NOTE | 2024-02-13 12:23 | WPDANESEPPF ---
Anes - Initial Pre Proc Eval Procedure: Operation Date: 02/13/24 13:00 Proposed Procedures p Colonoscopy - Sj Luo MD Date/Time: 02/13/24 12:23 Surgeon: Sj Luo MD Pre Op Diagnosis: Diarrhea Patient Data Age: 78 Gender: F Height: 1.7 m Weight: 73.2 kg Last Vital Signs Temp 97.4 F L 02/13/24 11:38 Pulse 98 02/13/24 11:38 Resp 18 02/13/24 11:38 BP 138/76 02/13/24 11:38 Pulse Ox 99 02/13/24 11:38 O2 Del Method Room Air 02/13/24 11:38 Allergies Allergy/AdvReac Type Severity Reaction Status Date / Time No Known Allergies Allergy Verified 02/13/24 11:36 Home Medications Medication Instructions Recorded Confirmed Type aspirin 81 mg tablet,delayed 81 mg PO DAILY 02/21/23 01/29/24 History release (Adult Aspirin Regimen) calcium carbonate 600 mg-vitamin 1 tablet PO BID 02/21/23 01/29/24 History D3 10 mcg (400 unit) tablet diltiazem HCl 240 mg 240 mg PO DAILY 02/21/23 01/29/24 History capsule,extended release 24 hr gabapentin 300 mg capsule 300 mg PO BID 02/21/23 01/29/24 History lisinopril 20 1 tablet PO DAILY 02/21/23 01/29/24 History mg-hydrochlorothiazide 12.5 mg tablet lovastatin 40 mg tablet 40 mg PO DAILY 02/21/23 01/29/24 History mecobalamin (vitamin B12) 1,000 1,000 mcg PO DAILY 02/21/23 01/29/24 History mcg chewable tablet sertraline 100 mg tablet 100 mg PO DAILY 02/21/23 01/29/24 History colestipol 1 gram tablet 1 g PO BID 1 month #60 tabs 12/28/23 01/29/24 Rx Patient hx anesthesia problems: none Family hx anesthesia problems: none Results Review: All pre-operative results and documents have been reviewed as part of the pre-operative evaluation. [facility] Past Medical History Medical History (Updated 12/28/23 @ 10:23 by Chely Purvis, RECORD FILING CLERK-C) Arterial vascular disease Arthritis Cellulitis CKD (chronic kidney disease) Depression Diarrhea Dizziness High cholesterol Hypertension Peroneal tendinitis of left lower leg Positive P-ANCA titer Shortness of breath Tobacco use Vision abnormalities Family History Family History Other Hypertension Malignant neoplasm Social History Social History Smoking packs per day: 0.5 Smoking cigarettes per day: 10.0 Years smoked: 50 Smoking pack-years: 25.00 Smoking status: Current every day smoker Tobacco type: cigarettes Alcohol intake: never Substance use: never Substance use type: does not use Do You Feel Safe in your Home?: Yes Lack of Transportation: No Lack of Food: Never True Current Housing: I Have Housing Concerned About Future Housing: No Difficulty Paying Gas/Electric Bills: No Difficulty Paying for Meds: No Currently Unemployed: No Education: High School Diploma/GED Difficulty w/ Childcare or Family Care: No Living arrangements: with family Gender identity (if verbalized by the patient): Female Sexual Orientation (if Verbalized by the Patient): Straight or Heterosexual Spiritual care concerns: No Anes - Eval Final PreProcedure Day of Procedure 02/13/24 12:23 Patient weight: normal Heart: regular rate and rhythm Lungs: clear to auscultation Airway: Mallampati scale class II Neurological: alert and oriented Last oral intake: >/= 8 hours ASA classification: III Emergent: no Anesthetic plan: proceed Anesthesia type and monitoring: general GIVS and standard monitoring Results Review: All pre-operative results and documents have been reviewed as part of the pre-operative evaluation. Informed Consent: The patient's anesthetic plan and its attendant risks and benefits were discussed with the patient/family/POA. Questions were solicited and answers provided to the satisfaction of the patient/family/POA.
--- NOTE | 2024-02-13 13:00 | PM.HPGS ---
History of Present Illness History of Present Illness Consent: Risks, benefits, and alternatives have been discussed and questions answered. Patient agrees to proceed with procedure. Chief complaint: Diarrhea Narrative: Juliana Pennington is a 78 year old female with diarrhea over 1 year sometimes with accidents, better since using colestipol, also imodium prn. Last colonoscopy more than 10 years ago. IBD panel + Review of Systems Review of Systems: All systems reviewed & are unremarkable except as noted in HPI and below PMFSH Past Medical History Medical History (Updated 12/28/23 @ 10:23 by KAIDEN NavarroN-C) Arterial vascular disease Arthritis Cellulitis CKD (chronic kidney disease) Depression Diarrhea Dizziness High cholesterol Hypertension Peroneal tendinitis of left lower leg Positive P-ANCA titer Shortness of breath Tobacco use Vision abnormalities Family History Family History Other Hypertension Malignant neoplasm Social History Social History Smoking packs per day: 0.5 Smoking cigarettes per day: 10.0 Years smoked: 50 Smoking pack-years: 25.00 Smoking status: Current every day smoker Tobacco type: cigarettes Alcohol intake: never Substance use: never Substance use type: does not use Do You Feel Safe in your Home?: Yes Lack of Transportation: No Lack of Food: Never True Current Housing: I Have Housing Concerned About Future Housing: No Difficulty Paying Gas/Electric Bills: No Difficulty Paying for Meds: No Currently Unemployed: No Education: High School Diploma/GED Difficulty w/ Childcare or Family Care: No Living arrangements: with family Gender identity (if verbalized by the patient): Female Sexual Orientation (if Verbalized by the Patient): Straight or Heterosexual Spiritual care concerns: No Meds Home Medications and Allergies Home Medications Medication Instructions Recorded Confirmed Type aspirin 81 mg tablet,delayed 81 mg PO DAILY 02/21/23 01/29/24 History release (Adult Aspirin Regimen) calcium carbonate 600 mg-vitamin 1 tablet PO BID 02/21/23 01/29/24 History D3 10 mcg (400 unit) tablet diltiazem HCl 240 mg 240 mg PO DAILY 02/21/23 01/29/24 History capsule,extended release 24 hr gabapentin 300 mg capsule 300 mg PO BID 02/21/23 01/29/24 History lisinopril 20 1 tablet PO DAILY 02/21/23 01/29/24 History mg-hydrochlorothiazide 12.5 mg tablet lovastatin 40 mg tablet 40 mg PO DAILY 02/21/23 01/29/24 History mecobalamin (vitamin B12) 1,000 1,000 mcg PO DAILY 02/21/23 01/29/24 History mcg chewable tablet sertraline 100 mg tablet 100 mg PO DAILY 02/21/23 01/29/24 History colestipol 1 gram tablet 1 g PO BID 1 month #60 tabs 12/28/23 01/29/24 Rx Allergies Allergy/AdvReac Type Severity Reaction Status Date / Time No Known Allergies Allergy Verified 02/13/24 11:36 Vital Signs Vital Signs - 24 hr 02/13/24 11:38 Temperature 97.4 F L Pulse Rate 98 Respiratory Rate 18 Blood Pressure 138/76 Pulse Oximetry 99 Oxygen Delivery Room Air Exam Const: General: comfortable and no acute distress HENMT: Face/Nose/Sinus: Normal nares present Eyes: General: appearance normal, both eyes and all related structures Neck: Neck: no JVD Resp: Auscultation: clear to auscultation bilaterally Cardio: Rate: regular rate Rhythm: regular rhythm GI: Inspection: non-distended GI Palp: Yes Soft to palpation Skin: General skin exam: normal color Neuro: General: gait normal Speech: normal speech Extrem: General: normal to inspection Psych: Mental Status: mental status grossly normal Assessment and Plan Assessment and plan (1) Diarrhea: Code(s): R19.7 - Diarrhea, unspecified Status: Acute Assessment and Plan: colonoscopy with biopsies colestipol is helping
[2024-02-13 13:26] VITALS: BP 116/60; PULSE 76; RESP 21; O2SAT 98
[2024-02-13 13:36] VITALS: BP 116/64; PULSE 79; RESP 21; O2SAT 100
[2024-02-13 13:46] VITALS: BP 146/80; PULSE 77; RESP 21; O2SAT 98
== END 2024-02-13 13:54 | disposition home or self-care (01) ==
PROVIDERS: PCP Family Medicine; Visit Provider Internal Medicine Gastroenterology
PROC: 0DJD8ZZ Inspection of Lower Intestinal Tract, Via Natural or Artificial Opening Endoscopic (ICD-10-PCS; CPT 45378; principal; 2024-02-13 13:00)
DX: K52.832 Lymphocytic colitis (principal); D12.3 Benign neoplasm of transverse colon; K63.5 Polyp of colon; K62.1 Rectal polyp; K57.30 Diverticulosis of large intestine without perforation or abscess without bleeding; I12.9 Hypertensive chronic kidney disease with stage 1 through stage 4 chronic kidney disease, or unspecified chronic kidney disease; N18.9 Chronic kidney disease, unspecified; E78.00 Pure hypercholesterolemia, unspecified; F32.A Depression, unspecified; F17.210 Nicotine dependence, cigarettes, uncomplicated; Z79.82 Long term (current) use of aspirin
CPT/HCPCS: 45385; 45380; 88305; J2704; J7120

== ENCOUNTER 2024-02-20 09:20 | Outpatient (CLI) | payer MEDICARE, SELFPAY ==
--- NOTE | ~2024-02-20 | XR_ITS ---
AP and lateral views of the left tibia/fibula Clinical History: Pain Findings: No acute fracture or dislocation is seen. Osseous alignment is anatomic. Joint spaces of th e urinary tract. There is orthopedic fusion across the tibiotalar joint and possibly the distal tibio fibular syndesmosis.. Soft tissues are unremarkable. Impression: No acute abnormality seen. Orthopedic fusion across the tibiotalar joint and possibly the distal tibiofibular syndesmosis. Corre late with surgical history. Reviewed, dictated and finalized at location . Impression: No acute abnormality seen. Orthopedic fusion across the tibiotalar joint and possibly the distal tibiofibu lar syndesmosis. Correlate with surgical history.
== END 2024-02-20 09:21 | disposition home or self-care (01) ==
LOC: CHSIMG 09:24
PROVIDERS: PCP Family Medicine; Visit Provider Family Medicine
DX: M79.605 Pain in left leg (principal)
CPT/HCPCS: 73590

== ENCOUNTER 2024-06-12 09:15 | Outpatient (CLI) | payer MEDICARE, SELFPAY ==
[2024-06-13 09:56] LABS: Albumin Level 3.4 g/dL (3.5-5.1); Anion Gap 10 mmol/L (4-12); Blood Urea Nitrogen 36 mg/dL (7-17); Calcium 9.3 mg/dL (8.4-10.2); Carbon Dioxide 23 mmol/L (22-30); Chloride 107 mmol/L (98-107); Estimated Glomerular Filt Rate 16; Glucose 90 mg/dL (65-110); Osmolality Calculated 298 mOsm/kg (285-295); Phosphorus 4.4 mg/dL (2.5-4.5); Sodium 140 mmol/L (137-145)
[2024-06-13 10:25] LABS: Creatinine Urine 111.7 mg/dL
[2024-06-13 11:06] LABS: Total Protein Urine Random > 250 mg/dL; Ur Ttl Prot Creatinine Ratio > 2.24 mg/mg (0-0.20)
== END 2024-06-12 09:16 | disposition home or self-care (01) ==
LOC: CHSLAB 09:16
PROVIDERS: PCP Family Medicine; Visit Provider Internal Medicine Nephrology
DX: I12.9 Hypertensive chronic kidney disease with stage 1 through stage 4 chronic kidney disease, or unspecified chronic kidney disease (principal); N18.4 Chronic kidney disease, stage 4 (severe)
CPT/HCPCS: 36415; 80069; 82570; 84156

== ENCOUNTER 2024-08-19 08:03 | Outpatient (CLI) | payer MEDICARE, SELFPAY ==
[2024-08-19 08:33] LABS: Basophils Absolute Auto 0.05 K/mm3 (0.00-0.10); Basophils Percent Auto 0.6 % (0.0-1.0); Eosinophils Absolute Auto 0.24 K/mm3 (0.02-0.50); Hematocrit 34.1 % (35.0-42.0); Hemoglobin 11.3 g/dL (11.7-13.8); Immature Granulocyte Absolute 0.04 K/mm3 (0.00-0.00); Immature Granulocyte Percent A 0.5 % (0.0-0.0); Lymphocytes Absolute Auto 1.35 K/mm3 (1.10-4.50); Lymphocytes Percent Auto 16.8 % (18.0-42.0); Mean Corpuscular HGB Conc 33.1 g/dL (32-36); Mean Corpuscular Hemoglobin 28.1 pg (27.0-31.0); Mean Corpuscular Volume 84.8 fL (78.0-102.0); Mean Platelet Volume 10.8 fl (9.2-11.8); Monocytes Absolute Auto 0.69 K/mm3 (0.10-0.90); Monocytes Percent Auto 8.6 % (2.0-11.0); Neutrophils Absolute Auto 5.68 K/mm3 (1.70-7.20); Neutrophils Percent Auto 70.5 % (50.0-70.0); Platelet Count Result 254 K/mm3 (150-420); Red Blood Count 4.02 M/mm3 (4.20-5.40); Red Cell Distribution Width 13.2 % (11.6-14.4); White Blood Count 8.1 K/mm3 (4.8-10.8)
[2024-08-19 09:25] LABS: Alanine Aminotransferase 16 U/L (14-59); Albumin Level 3.2 g/dL (3.4-5.0); Alkaline Phosphatase 119 U/L (46-116); Aspartate Amino Transferase 11 U/L (15-37); Bilirubin Direct 0.1 mg/dL (0-0.2); Bilirubin,Total 0.3 mg/dL (0.00-1.00); Cholesterol 154 mg/dL (0-200); HDL Direct 43 mg/dL (40-60); LDL Cholesterol Calculated 73 mg/dL (<130); Total Protein 6.4 g/dL (6.4-8.2); Triglycerides 188 mg/dL (0-150); Uric Acid 7.9 mg/dL (2.6-6.0)
== END 2024-08-19 08:04 | disposition home or self-care (01) ==
LOC: CHSLAB 08:06
PROVIDERS: PCP Family Medicine; Visit Provider Family Medicine
DX: I10 Essential (primary) hypertension (principal); E78.5 Hyperlipidemia, unspecified
CPT/HCPCS: 36415; 80061; 80076; 84550; 85025

== ENCOUNTER 2024-08-27 15:40 | Outpatient (CLI) | payer MEDICARE, SELFPAY ==
[2024-08-27 17:58] LABS: Toxigenic C. Diff NEGATIVE (NEGATIVE)
[2024-08-29 11:13] LABS: Lactoferrin, Stool COMMENT:
== END 2024-08-27 15:41 | disposition home or self-care (01) ==
LOC: CHSLAB 15:42
PROVIDERS: PCP Family Medicine; Visit Provider Nurse Practitioner Family
DX: R76.8 Other specified abnormal immunological findings in serum (principal); R19.7 Diarrhea, unspecified; K52.832 Lymphocytic colitis
CPT/HCPCS: 82653; 82705; 83630; 83993; 87045; 87269; 87427; 87449; 87493

== ENCOUNTER 2024-10-17 08:38 | Outpatient (CLI) | payer MEDICARE, SELFPAY ==
[2024-10-17 09:05] LABS: Creatinine Urine 107.24 mg/dL (40-278); Total Protein Urine Random 234.5 mg/dL (0.0-11.9); Ur Ttl Prot Creatinine Ratio 2.19 mg/mg (0-0.20)
[2024-10-17 09:25] LABS: Albumin Level 3.5 g/dL (3.4-5.0); Anion Gap 11 mmol/L (4-12); Blood Urea Nitrogen 34 mg/dL (7-18); Calcium 9.2 mg/dL (8.5-10.1); Carbon Dioxide 26 mmol/L (21-32); Chloride 107 mmol/L (98-108); Estimated Glomerular Filt Rate 14; Glucose 103 mg/dL (70-99); Osmolality Calculated 305 mOsm/kg (285-295); Phosphorus 5.1 mg/dL (2.6-4.7); Potassium 4.2 mmol/L (3.5-5.1); Sodium 144 mmol/L (136-145)
[2024-10-18 07:44] LABS: Vitamin D 25 Hydroxy 27 ng/mL (30-100)
[2024-10-20 12:28] LABS: Parathyroid Intact 117 pg/mL (16-77)
== END 2024-10-17 08:39 | disposition home or self-care (01) ==
LOC: CHSLAB 08:40
PROVIDERS: PCP Family Medicine; Visit Provider Internal Medicine Nephrology
DX: I12.9 Hypertensive chronic kidney disease with stage 1 through stage 4 chronic kidney disease, or unspecified chronic kidney disease (principal); N25.81 Secondary hyperparathyroidism of renal origin; E55.9 Vitamin D deficiency, unspecified; N18.4 Chronic kidney disease, stage 4 (severe)
CPT/HCPCS: 36415; 80069; 82306; 82570; 83970; 84156

== ENCOUNTER 2024-12-19 08:57 | Outpatient (CLI) | payer MEDICARE, SELFPAY ==
--- OUTSIDE RECORDS SUMMARY | 2024-12-19 09:23 | XMS_ITS | Clinical Summary ---
Author Organization [facility] Address [address] [place] [address] Phone Care Team Providers Care Eyeglass Assembler Name Role Phone Unavailable Unavailable Unavailable Reason for Visit and Chief Complaint PROBLEM VISIT Plan of Treatment No Plan of Treatment Recorded Assessments Includes: Assessments from this encounter No Assessments Recorded Medical Equipment - Implanted Devices Includes: Current Devices No Medical Equipment Recorded Medications Administered Includes: Administered Medications from this encounter No Administered Medications Recorded Results Includes: Results discussed during this encounter No Results Recorded For Specified Dates History of Present Illness Includes: History of Present Illness from this encounter No History of Present Illness Recorded Social History No Social History Recorded - Smoking Status Unknown Medical History Includes: Medical History addressed during this encounter No Medical History Recorded Family History Includes: Family History addressed during this encounter No Family History Recorded Review of Systems Includes: Review of Systems from this encounter No Review of Systems Recorded Mental Status Includes: Mental Status from this encounter No Mental Status Recorded Functional Status Includes: Functional Status from this encounter No Functional Status Recorded Physical Exam Includes: Physical Exam from this encounter No Physical Exam Recorded Allergies Includes: Active Allergies No Known Allergies Encounters Encounter Provider Location Date Check-In Time Check-Out Time Diagnosis PROBLEM VISIT GEOFF NICOLAS [facility] 7 8:44AM 9:25AM Clinical Notes Includes: Clinical Notes from this encounter No Clinical Notes Recorded
--- OUTSIDE RECORDS SUMMARY | 2024-12-19 09:23 | XMS_ITS | Clinical Summary ---
Author Organization [facility] Address [address] [place] [id number] Phone Care Team Providers Care Application Packager Name Role Phone Nicolás Dey MD Primary Care Provider [phone] Allergies No known active allergies Medications Medication Sig Dispensed Refills Start Date End Date Status calcium carbonate 1500 (600 Ca) MG tablet 1 tab/cap bid 0 09/11/2016 Act willow lovastatin (MEVACOR) 40 MG tablet 1 tab/cap qday 0 09/11/2016 Active lisinopril-hydroCHLORO thiazide (PRINZIDE,ZESTORETIC) 10-12.5 MG per tablet 1 tab/cap qday 0 09/11/2016 Active aspirin (ST VENU) 81 MG EC tablet 1 tab/cap qday 0 09/11/2016 Active sertraline (ZOLOFT) 100 MG tablet 1 tab/cap qday 0 09/11/2016 Active dilTIAZem CD (CARDIZEM CD) 240 MG 24 hr capsule 1 tab/cap qday 0 09/11/2016 Active cyanocobalamin ([facility] VITAMIN B-12) 1000 MCG tablet Take 2,000 mcg by mouth 12/25/2018 Active gabapentin (NEURONTIN) 300 MG capsule TAKE 1 CAPSULE BY MOUTH THREE TIMES A DAY 0 06/30/2019 Active terbinafine (LamISIL) 250 MG tablet TAKE 1 TABLET (250 MG) BY MOUTH ONCE DAILY 05/03/2022 Active Active Problems Problem Noted Date Diagnosed Date Acquired left equinovarus deformity 06/13/2022 Pain in lower limb 07/24/2019 Smoker 07/24/2019 Chronic kidney disease, stage 4 (severe) 017 Hypertensive chronic kidney disease with stage 1 through stage 4 chronic kidney disease, or unspecified chronic kidney disease 10/23/2016 Hypertension 09/11/2016 Overview (04/02/2019): Overview: Hypertension Hyperlipidemia 09/11/2016 Overview (04/02/2019): Overview: Hyperlipemia Other specified depressive episode 09/11/2016 Abnormal result of kidney function study 016 Immunizations Name Administration Dates Next Due Influenza TIV (IM) 09/11/2016 Influenza, Injectable, Quadrivalent 07/21/2019 Pneumococcal Conjugate 13-Valent 09/11/2016 Sars-cov-2, Unspecified 08/19/2021,02/16/2021, Family History Medical History Relation Comments Coronary arteriosclerosis Mother Hypertensive disorder Mother Kidney disease Neg Hx Kidney stone Neg Hx Relation Status Comments Mother Social History Tobacco Use Types Packs/Day Years Used Date Smoking Tobacco: Every Day Smokeless Tobacco: Never Tobacco Cessation:Ready to Q uit: No; Counseling Given: Yes Alcohol Use Standard Drinks/Week Comments No 0 (1 standard drink = 0.6 oz pur e alcohol) Sex and Gender Information Value Date Recorded Sex Assigned at Not on file Gender Identity Not on file Sexual Orientation Not on file Last Filed Vital Signs Vital Sign Reading Time Taken Comments Blood Pressure 136/74 06/22/2022 9:09 AM CDT Pulse - - Temperature 36.5 C (97.7 F) 06/22/2022 9:09 AM CDT Respiratory Rate 18 06/22/2022 9:09 AM CDT Oxygen Saturation - - Inhaled Oxygen Concentration - - Weight 86.2 kg (190 lb) 06/22/2022 9:09 AM CDT Height 167.6 cm (5' 6 ) 06/22/2022 9:09 AM CDT Body Mass Index 30.67 06/22/2022 9:09 AM CDT Plan of Treatment Health Maintenance Due Date Last Done Comments Pneumococcal PPSV23/PCV13 65 + Years / Low and Medium Risk (2 of 3 - PPSV23 or PCV20) 09/11/2017 09/11/2016 Influenza Vaccine (#1) 2024 09/11/2016 Care Teams Application Packager Relationship Specialty Start Date End Date Nicolás Dey MD [address] [facility] [place] [address] PCP - General Internal Medicine 04/01/19
--- OUTSIDE RECORDS SUMMARY | 2024-12-19 09:24 | XMS_ITS | Clinical Summary ---
Author Organization [facility] Address [address] [place] [address] Phone Care Team Providers Care Ballistics Professor Name Role Phone Unavailable Unavailable Unavailable Reason for Visit and Chief Complaint DEXASCAN Plan of Treatment No Plan of Treatment [...] Location Date Check-In Time Check-Out Time Diagnosis DEXASCAN [facility] 07/09/2007 8:27AM 8:55AM Clinical Notes Includes: Clinical Notes from this encounter No Clinical Notes Recorded
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
--- OUTSIDE RECORDS SUMMARY | 2024-12-19 09:24 | XMS_ITS | Clinical Summary ---
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
--- OUTSIDE RECORDS SUMMARY | 2024-12-19 09:24 | XMS_ITS | Clinical Summary ---
Author Organization [facility] Address [address] [place] [address] Care Team Providers Care Stenotype Operator Name Role Phone Nicolás Patton MD Primary Care Provider [phone] Allergies No known active allergies Medications [facility] VITAMIN B12 1000 MCG tablet Take 2 tablets (2,000 mcg total) by mouth daily. 3 9 Active dilTIAZem CD 240 MG 24 hr capsule Take 1 capsule (240 mg total) by mouth 2 (two) times daily. 0 9 Active gabapentin 300 MG capsule Take 1 capsule (300 mg total) by mouth 3 (three) times daily. 0 9 Active lovastatin 40 MG tablet Take 1 tablet (40 mg total) by mouth nightly at bedtime. 0 9 Active sertraline 100 MG tablet Take 1 tablet (100 mg total) by mouth every morning. 0 9 Active aspirin EC (ECOTRIN) 81 MG tablet Take 1 tablet (81 mg total) by mouth daily. Active Calcium Carbonate (CALCIUM 600 OR) Take by mouth daily. Active triamcinolone (KENALOG) 0.1 % ointment APPLY A THIN LAYER TO THE AFFECTED AREA(S) BY TOPICAL ROUTE ONCE DAILY 2 Active COMPRESSION STOCKINGSIndica tions:Status post orthopedic surgery, follow-up exam,Bilateral swelling of feet and ankles Apply 1 each topically daily. 15-20 pressure, Knee high 1 Container 3 Active lisinopril-hydr oCHLOROthiazide (ZESTORETIC) 20-12.5 MG tablet 3 Active HYDROcodone-kevin taminophen (NORCO) 10-325 MG tabletIndicatio ns:Chronic Pain Indications: Chronic Pain 1-2 tabs Q 4-6H prn pain 21 tablet 3 Active Active Problems Problem Noted Date Diagnosed Date Painful orthopaedic hardware 06/26/2023 Overview (06/26/2023): Added automatically from request for surgery [id number] Ankle instability, left 08/22/2022 Neuropathy of left foot 08/22/2022 Acquired equinovarus deformity of left foot 03/2022 Leg pain 07/24/2019 Essential hypertension 07/24/2019 CKD (chronic kidney disease) 07/24/2019 Smoking 07/24/2019 Resolved Problems Problem Noted Date Diagnosed Date Resolved Date Status post orthopedic surge ry, follow-up exam 11/28/2022 12/04/2022 Encounters Date Type Department Care Team Description 12/16/2024 10:19 AM CDT - 12/16/2024 11:59 PM CDT Hospital Encounter [facility] [address] [place] [address] [place] [address] Nicolás Patton MD Arrived Discharge Disposition: Home or Self Care (Routine Discharge) 12/16/2024 Travel 12/15/2024 Telephone [facility] [address] [facility] [place] [address] Lizzie Lu, RN [facility] Question from Last 3 Months Family History Medical History Relation Comments Diabetes Brother Diabetes Father Relation Status Comments Brother Father Social History Tobacco Use Types Packs/Day Years Used Date Smoking Tobacco: Every Day Cigarettes 0.5 40 Smokeless Tobacco: Never Tobacco Cessation:Ready to Q uit: Not Asked; Counseling Given: Not Answered Alcohol Use Standard Drinks/Week Comments Not Currently 0 (1 standard drink = 0.6 oz pur e alcohol) Comments No Sex and Gender Information Value Date Recorded Sex Assigned at Female 12/16/2024 10:07 AM CDT Legal Sex Female 6:01 PM BLOOD BANK MANAGER Gender Identity Not on file Sexual Orientation Not on file Last Filed Vital Signs Vital Sign Reading Time Taken Comments Blood Pressure 137/53 07/24/2023 2:00 PM CDT Pulse 61 07/24/2023 2:00 PM CDT Temperature 36.1 C (96.9 F) 07/24/2023 2:00 PM CDT Respiratory Rate 18 07/24/2023 2:00 PM CDT Oxygen Saturation 97% 07/24/2023 2:00 PM CDT Inhaled Oxygen Concentration - - Weight 76.7 kg (169 lb) 08/14/2023 8:57 AM BLOOD BANK MANAGER Height 170.2 cm (5' 7 ) 08/14/2023 8:57 AM BLOOD BANK MANAGER Body Mass Index 26.47 08/14/2023 8:57 AM BLOOD BANK MANAGER Plan of Treatment Upcoming Encounters Date Type Department Care Team (Late st Contact Info) Description 12/24/2024 9:00 AM CDT Appointment [facility] [address] [place] [address] Nicolás Patton MD [address] [place] [address] Health Maintenance Due Date Last Done Comments DTaP, Tdap and Td Vaccines ( 1 - Tdap) 1963 Zoster Vaccines (1 of 2) 1994 Annual Medicare Wellness Visit 2009 Dexa Scan (General) 2009 Pneumococcal Vaccine: 65+ Years (2 of 2 - PPSV23 or PCV20) 11/06/2016 09/11/2016, 08/02/2015 RSV Immunization or 60+ Years (1 - 1-dose 75+ series) 2019 COVID-19 Vaccine (1 - 2023-2 5 season) 2024 Influenza Adult (#1) 2024 07/21/2019, 09/11/2016 Meningococcal B Vaccine Aged Out No l onger eligible based on patient's age to complete this topic Meningococcal Vaccine Aged Out No sarah marcia eligible based on patient's age to complete this topic RSV Immunizations Under 20 Months Aged Out No longer eligible b ased on patient's age to complete this topic Medical Devices Implanted Type Area Sign Wirer Device Identifier Shelf Expiration Date Model / Serial / Lot Screw Bone 8mm 50mm 25mm Asnis Iii Titanium Orthopedic Self Tapping Self Drilling Cannulated - [id number] Implanted:Qty: 2 on 10/10/2022 by Walter Rawls MD at [facility] Screw Left: Ankle [employer] - DIV TEMI MARLEN [id number] / / Pain Stimulator Description:PAIN STIMULATOR IN LOWER BACK ON THE LEFT SIDE 3.2 Guide Pin Implanted:Qty: 2 on 10/10/2022 by Walter Rawls MD at [facility] Left: Ankle [id number] / / Washer 8.0 Implanted:Qty: 2 on 10/10/2022 by Walter Rawls MD at [facility] Left: Ankle [id number] / / 8.0x120 Cannulated Screw Implanted:Qty: 2 on 10/10/2022 by Walter Rawls MD at [facility] Left: Ankle [id number] / / Explanted Type Area Sign Wirer Device Identifier Shelf Expiration Date Model / Serial / Lot Guide Wire, Smooth Explanted:Qty: 1 on 07/24/2023 by Walter Rawls MD at [facility] Left: Ankle [employer] - DIV [employer] MARLEN [id number] / / Procedures Procedure Name Priority Date/Time Associated Diagnosis Comments XR FOOT LT 3V Routine 12/16/2024 10:51 AM CDT Pain in left foot XR ANKLE LT M3V Routine 12/16/2024 10:51 AM CDT Pain in left foot from Last 3 Months Results * XR FOOT LT 3V (12/16/2024 10:51 AM CDT) Anatomical Region Laterality Modality Foot Radiographic Becca ging 12/17/2024 8:42 AM CDT Impressions 12/17/2024 8:46 AM CDT IMPRESSION: No acute findings. See text. Ordered By: NICOLÁS PATTON Interpreted By: Yohan Almazan MD, 12/17/2024 8:42 AM Narrative 12/17/2024 8:46 AM CDT [address] [place] [address] Examination: Left ankle and foot. Exam time: 1017 hours. Clinical history: Pain. Prior arthrodesis. Comparison: Left foot, 08/14/2023, left ankle, 05/22/2023. Technique: Three views each. Findings: Changes of tibiotalar and tibiotalocalcaneal arthrodesis again evident. The hardware appears intact and in stable position. Fusion across the tibiotalar and subtalar joints appears solid. Apparent resection of a portion of the distal fibula again evident. No fracture, dislocation or other acute bony abnormality is identified. Osteopenia and degenerative change, in keeping with age, again evident. Small plantar and Achilles calcaneal spurs are again noted. No other significant bone or joint abnormality is noted. No acute soft tissue abnormality. Procedure Note Yohan Almazan MD - 12/17/2024 [place] [address] [place] [address] Examination: Left ankle and foot. Exam time: 1017 hours. Clinical history: Pain. Prior arthrodesis. Comparison: Left foot, 08/14/2023, left ankle, 05/22/2023. Technique: Three views each. Findings: Changes of tibiotalar and tibiotalocalcaneal arthrodesis againevident. The hardware appears intact and in stable position. Fusion acrossthe tibiotalar and subtalar joints appears solid. Apparent resection of aportion of the distal fibula again evident. No fracture, dislocation orother acute bony abnormality is identified. Osteopenia and degenerativechange, in keeping with age, again evident. Small plantar and Achillescalcaneal spurs are again noted. No other significant bone or jointabnormality is noted. No acute soft tissue abnormality. IMPRESSION: No acute findings. See text. Ordered By: NICOLÁS PATTON Interpreted By: Yohan Almazan MD, 12/17/2024 8:42 AM us Nicolás Patton MD GENERAL IMAGING Final Result * XR ANKLE LT M3V (12/16/2024 10:51 AM CDT) Anatomical Region Laterality Modality Ankle Radiographic Becca ging 12/17/2024 8:42 AM CDT Impressions 12/17/2024 8:46 AM CDT IMPRESSION: No acute findings. See text. Ordered By: NICOLÁS PATTON Interpreted By: Yohan Almazan MD, 12/17/2024 8:42 AM Narrative 12/17/2024 8:46 AM CDT [address] [place] [address] Examination: Left ankle and foot. Exam time: 1017 hours. Clinical history: Pain. Prior arthrodesis. Comparison: Left foot, 08/14/2023, left ankle, 05/22/2023. Technique: Three views each. Findings: Changes of tibiotalar and tibiotalocalcaneal arthrodesis again evident. The hardware appears intact and in stable position. Fusion across the tibiotalar and subtalar joints appears solid. Apparent resection of a portion of the distal fibula again evident. No fracture, dislocation or other acute bony abnormality is identified. Osteopenia and degenerative change, in keeping with age, again evident. Small plantar and Achilles calcaneal spurs are again noted. No other significant bone or joint abnormality is noted. No acute soft tissue abnormality. Procedure Note Yohan Almazan MD - 12/17/[address] [place] [address] Examination: Left ankle and foot. Exam time: 1017 hours. Clinical history: Pain. Prior arthrodesis. Comparison: Left foot, 08/14/2023, left ankle, 05/22/2023. Technique: Three views each. Findings: Changes of tibiotalar and tibiotalocalcaneal arthrodesis againevident. The hardware appears intact and in stable position. Fusion acrossthe tibiotalar and subtalar joints appears solid. Apparent resection of aportion of the distal fibula again evident. No fracture, dislocation orother acute bony abnormality is identified. Osteopenia and degenerativechange, in keeping with age, again evident. Small plantar and Achillescalcaneal spurs are again noted. No other significant bone or jointabnormality is noted. No acute soft tissue abnormality. IMPRESSION: No acute findings. See text. Ordered By: NICOLÁS PATTON Interpreted By: Yohan Almazan MD, 12/17/2024 8:42 AM Nicolás Patton MD GENERAL IMAGING Final Result from Last 3 Months Insurance MEDICARE MEDICARE LIFE INSURANCE Care Teams Stenotype Operator Relationship Specialty Start Date End Date Nicolás Patton MD [address], [place] [id number] PCP - General FAMILY PRACTICE 07/17/19
--- OUTSIDE RECORDS SUMMARY | 2024-12-19 09:24 | XMS_ITS ---
Care Plan - [facility] Created on: December 19, 2024 CHAIM VALE : 1945 Sex: Female Author Organization [facility] Address [address] [place] [address] Phone Care Team Providers Care Investor Relations Manager Name Role Phone Unavailable Unavailable Unavailable
--- OUTSIDE RECORDS SUMMARY | 2024-12-19 09:24 | XMS_ITS | Clinical Summary ---
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
[2024-12-19 10:09] LABS: Albumin Level 3.5 g/dL (3.4-5.0); Anion Gap 13 mmol/L (4-12); Blood Urea Nitrogen 50 mg/dL (7-18); Calcium 9.4 mg/dL (8.5-10.1); Carbon Dioxide 24 mmol/L (21-32); Chloride 111 mmol/L (98-108); Estimated Glomerular Filt Rate 13; Glucose 99 mg/dL (70-99); Osmolality Calculated 319 mOsm/kg (285-295); Phosphorus 5.5 mg/dL (2.6-4.7); Potassium 4.2 mmol/L (3.5-5.1); Sodium 148 mmol/L (136-145)
[2024-12-21 05:43] LABS: Complement C3 131 mg/dL (83-193)
[2024-12-23 13:43] LABS: Anti Nuclear Antibody Pattern Cytoplasmic
[2024-12-23 13:54] LABS: ANCA Screen NEGATIVE (NEGATIVE)
== END 2024-12-19 08:58 | disposition home or self-care (01) ==
LOC: CHSLAB 08:58
PROVIDERS: PCP Family Medicine; Visit Provider Internal Medicine Nephrology
DX: N17.9 Acute kidney failure, unspecified (principal); N18.4 Chronic kidney disease, stage 4 (severe); I12.9 Hypertensive chronic kidney disease with stage 1 through stage 4 chronic kidney disease, or unspecified chronic kidney disease
CPT/HCPCS: 36415; 80069; 83520; 86036; 86038; 86039; 86160

== ENCOUNTER 2024-12-22 11:49 | Outpatient (CLI) | payer MEDICARE, SELFPAY ==
--- NOTE | ~2024-12-22 | DEXA_ITS ---
Bone Density Report Name: CHAIM VALE Age: 79 Sex: Female Ethnicity: White Date of : 1945 Indication: postmenopausal; screening for osteoporosis; height loss; Referring Provider: Nicolás Dey Study: Bone densitometry was performed. Exam Date: December 22, 2024 Accession number: [id number] Bone Density: Region BMD T-score Z-score Classification AP Spine(L1, L2, L3) 1.070 0.5 3.1 Normal Femoral Neck (Left) 0.555 -2.7 -0.3 Osteoporosis Total Hip (Left) 0.704 -2.0 0.1 Osteopenia Femoral Neck (Right) 0.604 -2.2 0.1 Osteopenia Total Hip (Right) 0.772 -1.4 0.7 Osteopenia Femoral Neck Mean 0.580 -2.4 -0.1 Osteopenia Total Hip Mean 0.738 -1.7 0.4 Osteopenia World Health Organization criteria for BMD impression classify patients as: Normal (T-score at or above -1.0), Osteopenia (T-score between -1.0 and -2.5), or Osteoporosis (T-score at or below -2.5). 10-year Fracture Risk: FRAX not reported because: Some T-score for Spine Total or Hip Total or Femoral Neck at or below -2.5 Clinical Information Provided by Patient: Smokes Has used the following medications: Calcium Patient maximum height was 67. Menopause Age: 49 No regular weight bearing exercise Drinks caffeinated beverages Onset of menses at age 15 Number of children 2 Impression: The patient has osteoporosis, based on the Left Femoral Neck T-score. The patient has risk factors, including: smoking. Discussion: INCREASED RISK OF FRACTURE. BONE DENSITY IS UNDESIRABLY LOW AT ONE OR MORE SKELETAL SITES, CONSISTENT WITH POSTMENOPAUSAL OSTEOPOROSIS. This patient's lowest T-score meets the World Health Organization's (WHO) criteria for osteoporosis at one or more sites (T-score -2.5 or below). In untreated patients, the risk of osteoporotic fracture increases approximately two-fold for each 1.0 SD decrease in T-score. Low bone density is not the only risk factor for fracture; also consider factors such as patient's age, frailty or poor health, risk of falling, risk of injury, previous osteoporotic fracture, family history of osteoporosis, cigarette smoking, low body weight, etc. Not everyone with low bone mineral density has osteoporosis; osteomalacia and other metabolic bone disorders should also be considered. Patients who have osteoporosis should be evaluated for specific diseases and conditions (secondary causes) that may cause or contribute to bone loss. The [place] Association of Clinical Endocrinologists (AACE) and National Osteoporosis Foundation (NOF) recommend pharmacologic intervention for all postmenopausal women whose T-score is in this range. The patient should follow a healthful lifestyle (good nutrition with adequate calcium and vitamin D, and appropriate weight-bearing exercise). Follow-Up: Consider a repeat BMD and Vertebral Fracture Assessment (VFA) exam in 2 years or sooner if medically necessary, to reassess this patient's status. Reported by: LEIDY on 12/22/2024 12:18:00 PM. Reviewed, dictated and finalized at location A.
--- OUTSIDE RECORDS SUMMARY | 2024-12-22 14:19 | XMS_ITS | Clinical Summary ---
Author Organization [facility] Address [address] [place] [id number] Phone Care Team Providers Care Clinical Specialist Vascular Name Role Phone Nicolás Dey MD Primary Care Provider [phone] Allergies No known active allergies Medications Medication [...] Influenza Vaccine (#1) 2024 09/11/2016 Care Teams Clinical Specialist Vascular Relationship Specialty Start Date End Date Nicolás Dey MD [address] [place] [address] PCP - General Internal Medicine 04/01/19
--- OUTSIDE RECORDS SUMMARY | 2024-12-22 14:19 | XMS_ITS | Clinical Summary ---
Author Organization [facility] Address [address] [place] [address] Phone Care Team Providers Care Cotton Ginner Name Role Phone Unavailable Unavailable Unavailable Reason [...] Check-Out Time Diagnosis PROBLEM VISIT GEOFF NICOLAS [facility] GAS TREATER 7 8:44AM 9:25AM Clinical Notes Includes: Clinical Notes from this encounter No Clinical Notes Recorded
--- OUTSIDE RECORDS SUMMARY | 2024-12-22 14:20 | XMS_ITS | Clinical Summary ---
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
--- OUTSIDE RECORDS SUMMARY | 2024-12-22 14:20 | XMS_ITS | Clinical Summary ---
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
--- OUTSIDE RECORDS SUMMARY | 2024-12-22 14:20 | XMS_ITS | Clinical Summary ---
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
--- OUTSIDE RECORDS SUMMARY | 2024-12-22 14:20 | XMS_ITS | Clinical Summary ---
Author Organization [facility] Address [address] [place] [address] Care Team Providers Care Brim Molder Name Role Phone Nicolás Patton MD Primary Care Provider [phone] Allergies No known active allergies Medications [facility] [...] (06/26/2023): Added automatically from request for surgery [id number] Ankle instability, left 08/22/2022 Neuropathy of left [...] - 12/16/2024 11:59 PM CDT Hospital Encounter [facility] [address] [facility] [place] [address] Nicolás Patton MD Discharge Disposition: Home or Self Care (Routine Discharge) 12/16/2024 Travel 12/15/2024 Telephone [facility] [address] [facility] [address] [place] [address] Lizzie Lu, INCOMING INSPECTOR-BC Question from Last 3 Months Family History [...] AM CDT Legal Sex Female 6:01 PM 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 Gender Identity Not on file Sexual Orientation [...] 76.7 kg (169 lb) 08/14/2023 8:57 AM 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 Height 170.2 cm (5' 7 ) 08/14/2023 8:57 AM 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 Body Mass Index 26.47 08/14/2023 8:57 AM 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 Plan of Treatment Upcoming Encounters Date Type Department Care Team (Late st Contact Info) Description 12/24/2024 9:00 AM CDT Appointment [facility] [address] [place], [place] [id number] Nicolás Patton MD [address], [place] [id number] Health Maintenance Due Date Last Done Comments [...] this topic Medical Devices Implanted Type Area Dental Aide Device Identifier Shelf Expiration Date Model / Serial / Lot Screw Bone 8mm 50mm 25mm Asnis Iii Titanium Orthopedic Self Tapping Self Drilling Cannulated - [id number] Implanted:Qty: 2 on 10/10/2022 by Walter Rawls MD at [facility] Screw Left: Ankle [employer] - DIV TEMI MARLEN [id number] / / Pain Stimulator Description:PAIN STIMULATOR IN LOWER BACK ON THE LEFT SIDE 3.2 Guide Pin Implanted:Qty: 2 on 10/10/2022 by Walter Rawls MD at [facility] Left: Ankle [id number] / / Washer 8.0 Implanted:Qty: 2 on 10/10/2022 by Walter Rawls MD at [facility] Left: Ankle [id number] / / 8.0x120 Cannulated Screw Implanted:Qty: 2 on 10/10/2022 by Walter Rawls MD at [facility] Left: Ankle [id number] / / Explanted Type Area Dental Aide Device Identifier Shelf Expiration Date Model / Serial / Lot Guide Wire, Smooth Explanted:Qty: 1 on 07/24/2023 by Walter Rawls MD at [facility] Left: Ankle [employer] - DIV [employer] MARLEN [id number] / / Procedures Procedure Name Priority Date/Time [...] 8:42 AM Narrative 12/17/2024 8:46 AM CDT [address] [place] [address] Examination: Left ankle and foot. Exam time: [...] Procedure Note Yohan Almazan MD - 12/17/2024 [place] [address] [facility] [place] [address] Examination: Left ankle and foot. Exam time: [...] 8:42 AM Narrative 12/17/2024 8:46 AM CDT [address] [place] [address] Examination: Left ankle and foot. Exam time: [...] Procedure Note Yohan Almazan MD - 12/17/[address] [place] [address] Examination: Left ankle and foot. Exam time: [...] Insurance MEDICARE MEDICARE LIFE INSURANCE Care Teams Brim Molder Relationship Specialty Start Date End Date Nicolás Patton MD [address], [place] [id number] PCP - General FAMILY PRACTICE 07/17/19
--- OUTSIDE RECORDS SUMMARY | 2024-12-22 14:20 | XMS_ITS ---
Care Plan - [facility] Created on: December 22, 2024 CHAIM VALE : 1945 Sex: Female Author Organization [facility] Address [address] [place] [address] Phone Care Team Providers Care Grocery Deliverer Name Role Phone Unavailable Unavailable Unavailable
== END 2024-12-22 11:50 | disposition home or self-care (01) ==
LOC: CHSIMG 11:50
PROVIDERS: PCP Family Medicine; Visit Provider Family Medicine
DX: Z78.0 Asymptomatic menopausal state (principal); M85.89 Other specified disorders of bone density and structure, multiple sites; M81.0 Age-related osteoporosis without current pathological fracture
CPT/HCPCS: 77080

== ENCOUNTER 2025-01-12 08:20 | Outpatient (CLI) | payer MEDICARE, SELFPAY ==
--- OUTSIDE RECORDS SUMMARY | 2025-01-12 08:35 | XMS_ITS | Clinical Summary ---
Author Organization [facility] Address [address] [place] [address] Phone Care Team Providers Care Corn Detasseler Name Role Phone Nicolás Dey MD Primary Care Provider [phone] Allergies No known active allergies Medications Medication [...] PPSV23 or PCV20) 09/11/2017 09/11/2016 Influenza Vaccine (Season Ended) 2025 09/11/20 16 Care Teams Corn Detasseler Relationship Specialty Start Date End Date Nicolás Dey MD [address] [facility] [place] [address] PCP - General Internal Medicine 04/01/19
--- OUTSIDE RECORDS SUMMARY | 2025-01-12 08:35 | XMS_ITS | Clinical Summary ---
Author Organization [facility] Address [address] [place] [address] Care Team Providers Care Animal Killer Name Role Phone Nicolás Patton MD Primary Care Provider [phone] Allergies No known active allergies Medications [facility] [...] oCHLOROthiazide (ZESTORETIC) 20-12.5 MG tablet 3 Active HYDROcodone-kvein taminophen (NORCO) 10-325 MG tabletIndicatio ns:Chronic Pain Indications: Chronic Pain 1-2 tabs Q 4-6H prn pain 21 tablet 3 Active Active Problems Problem Noted Date Diagnosed Date Painful orthopaedic hardware 06/26/2023 Overview (06/26/2023): Added automatically from request for surgery [id number] Ankle instability, left 08/22/2022 Neuropathy of left foot 08/22/2022 Acquired equinovarus deformity of left foot 03/2022 Leg pain 07/24/2019 Essential hypertension 07/24/2019 CKD (chronic kidney disease) 07/24/2019 Smoking 07/24/2019 Resolved Problems Problem Noted Date Diagnosed Date Resolved Date Status post orthopedic surge ry, follow-up exam 11/28/2022 12/04/2022 Encounters Date Type Department Care Team Description 12/24/2024 8:43 AM CDT - 12/24/2024 11:59 PM CDT Hospital Encounter [facility] [address] [place] [address] Nicolás Patton MD Discharge Disposition: Home or Self Care (Routine Discharge) 12/24/2024 Travel 12/16/2024 10:19 AM CDT - 12/16/2024 11:59 PM CDT Hospital Encounter [facility] [address] [place] [address] Nicolás Patton MD Discharge Disposition: Home or Self Care (Routine Discharge) 12/16/2024 Travel 12/15/2024 Telephone [facility] [address] [facility] [address] [place] [address] Lizzie Lu, NECKTIE TURNER-BC Question from Last 3 Months Family History [...] AM CDT Legal Sex Female 6:01 PM NAPPER RUNNER Gender Identity Not on file Sexual Orientation [...] 76.7 kg (169 lb) 08/14/2023 8:57 AM NAPPER RUNNER Height 170.2 cm (5' 7 ) 08/14/2023 8:57 AM NAPPER RUNNER Body Mass Index 26.47 08/14/2023 8:57 AM NAPPER RUNNER Plan of Treatment Health Maintenance Due Date Last Done Comments DTaP, Tdap and Td Vaccines ( 1 - Tdap) 1963 Zoster Vaccines (1 of 2) 1994 Annual Medicare Wellness Visit 2009 Dexa Scan (General) 2009 Pneumococcal Vaccine: 65+ Years (2 of 2 - PPSV23 or PCV20) 11/06/2016 09/11/2016, 08/02/2015 RSV Immunization or 60+ Years (1 - 1-dose 75+ series) 2019 COVID-19 Vaccine ( - 2023-2 5 season) 2024 Influenza Adult [...] this topic Medical Devices Implanted Type Area Crystal Syrup Maker Device Identifier Shelf Expiration Date Model / Serial / Lot Screw Bone 8mm 50mm 25mm Asnis Iii Titanium Orthopedic Self Tapping Self Drilling Cannulated - [id number] Implanted:Qty: 2 on 10/10/2022 by Walter Rawls MD at [facility] Screw Left: Ankle [employer] - DIV TEMI MARLEN [id number] / / Pain Stimulator Description:PAIN STIMULATOR IN LOWER BACK ON THE LEFT SIDE 3.2 Guide Pin Implanted:Qty: 2 on 10/10/2022 by Walter Rawls MD at [facility] Left: Ankle [id number] / / Washer 8.0 Implanted:Qty: 2 on 10/10/2022 by Walter Rawls MD at [facility] Left: Ankle [id number] / / 8.0x120 Cannulated Screw Implanted:Qty: 2 on 10/10/2022 by Walter Rawls MD at [facility] Left: Ankle [id number] / / Explanted Type Area Crystal Syrup Maker Device Identifier Shelf Expiration Date Model / Serial / Lot Guide Wire, Smooth Explanted:Qty: 1 on 07/24/2023 by Walter Rawls MD at [facility] Left: Ankle [employer] - DIV [employer] MARLEN [id number] / / Procedures Procedure Name Priority Date/Time Associated Diagnosis Comments [employer] BRENDA Routine 12/24/2024 9:39 AM CDT Absent pedal pulses XR FOOT LT 3V Routine 12/16/2024 10:51 AM CDT Pain in left foot XR ANKLE LT M3V Routine 12/16/2024 10:51 AM CDT Pain in left foot from Last 3 Months Results * [employer] BRENDA (12/24/2024 9:39 AM CDT) Anatomical Region Laterality Modality Extremity Ultrasound 12/28/2024 5:05 PM CDT Impressions 12/28/2024 5:07 PM CDT IMPRESSION: Patent bilateral ankle arteries. Left ankle with mildly decreased perfusion at rest. Normal right ankle perfusion at rest. Referred By: NICOLÁS PATTON Interpreted By: Kishan Rutledge MD, 12/28/2024 5:05 PM Narrative 12/28/2024 5:07 PM [address] 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 Ankle brachial index calculated. FINDINGS: Right brachial pressure: 161 mmHg Left brachial pressure: 159 mmHg Right: Ankle pressure (posterior tibial): 147 mmHg REAGAN (posterior tibial): 0.91 Ankle pressure (dorsalis pedis): 161 mmHg REAGAN (dorsalis pedis): 1 Left: Ankle pressure (posterior tibial): 144 mmHg REAGAN (posterior tibial): 0.89 Ankle pressure (dorsalis pedis): 138 mmHg REAGAN (dorsalis pedis): 0.86 Waveforms: Normal multiphasic right ankle. Slight decreased amplitude with spectral broadening of the dorsalis pedis artery on the left. Slightly better multiphasic waveform of the left posterior tibial artery. Procedure Note Kishan Rutledge MD - 12/28/[address] 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 Ankle brachial indexcalculated. FINDINGS: Right brachial pressure: 161 mmHg Left brachial pressure: 159 mmHg Right: Ankle pressure (posterior tibial): 147 mmHg REAGAN (posterior tibial): 0.91 Ankle pressure (dorsalis pedis): 161 mmHg REAGAN (dorsalis pedis): 1 Left: Ankle pressure (posterior tibial): 144 mmHg REAGAN (posterior tibial): 0.89 Ankle pressure (dorsalis pedis): 138 mmHg REAGAN (dorsalis pedis): 0.86 Waveforms: Normal multiphasic right ankle. Slight decreased amplitude with spectral broadening of the dorsalis pedisartery on the left. Slightly better multiphasic waveform of the leftposterior tibial artery. IMPRESSION: Patent bilateral ankle arteries. Left ankle with mildly decreased perfusion at rest. Normal right ankle perfusion at rest. Referred By: NICOLÁS PATTON Interpreted By: Kishan Rutledge MD, 12/28/2024 5:05 PM Nicolás Patton MD [facility] Final Result * XR FOOT LT 3V (12/16/2024 10:51 AM CDT) Anatomical Region Laterality Modality Foot Radiographic Becca ging 12/17/2024 8:42 AM CDT Impressions 12/17/2024 8:46 AM CDT IMPRESSION: No acute findings. See text. Ordered By: NICOLÁS PATTON Interpreted By: Yohan Almazan MD, 12/17/2024 8:42 AM Narrative 12/17/2024 8:46 AM CDT [address] [place] [address] Examination: Left ankle and foot. Exam time: [...] Procedure Note Yohan Almazan MD - 12/17/[address] [place] [address] Examination: Left ankle and foot. Exam time: [...] 8:42 AM Narrative 12/17/2024 8:46 AM CDT [address] [place] [address] Examination: Left ankle and foot. Exam time: [...] Procedure Note Yohan Almazan MD - 12/17/[address] [place] [address] Examination: Left ankle and foot. Exam time: [...] By: Yohan Almazan MD, 12/17/2024 8:42 AM Nicolsá Patton MD GENERAL IMAGING Final Result from Last 3 Months Insurance MEDICARE [facility] Care Teams Animal Killer Relationship Specialty Start Date End Date Nicolás Patton MD [address] [place] [address] PCP - General FAMILY PRACTICE 07/17/19
[2025-01-12 09:09] LABS: Albumin Level 3.2 g/dL (3.4-5.0); Anion Gap 12 mmol/L (4-12); Blood Urea Nitrogen 31 mg/dL (7-18); Calcium 8.9 mg/dL (8.5-10.1); Carbon Dioxide 22 mmol/L (21-32); Chloride 111 mmol/L (98-108); Estimated Glomerular Filt Rate 16; Glucose 91 mg/dL (70-99); Osmolality Calculated 306 mOsm/kg (285-295); Phosphorus 4.3 mg/dL (2.6-4.7); Potassium 4.2 mmol/L (3.5-5.1); Sodium 145 mmol/L (136-145)
== END 2025-01-12 08:21 | disposition home or self-care (01) ==
LOC: CHSLAB 08:21
PROVIDERS: PCP Family Medicine; Visit Provider Internal Medicine Nephrology
DX: N17.9 Acute kidney failure, unspecified (principal); N18.4 Chronic kidney disease, stage 4 (severe)
CPT/HCPCS: 36415; 80069; 86225

== ENCOUNTER 2025-01-28 11:40 | Outpatient (CLI) | payer MEDICARE, SELFPAY ==
--- NOTE | ~2025-01-28 | XR_ITS ---
Clinical Indication: Upper respiratory infection PA and lateral views of the chest: Comparison: 09/08/2022 Findings: The lungs are clear, without evidence of focal consolidation or pleural effusion. Cardiome diastinal silhouette is stable. Bones and soft tissues are unchanged. Impression: No acute abnormality. Reviewed, dictated and finalized at location . Impression: No acute abnormality.
--- OUTSIDE RECORDS SUMMARY | 2025-01-28 13:36 | XMS_ITS | Clinical Summary ---
Author Organization [facility] Address [address] [place] [address] Phone Care Team Providers Care Phone Technician Name Role Phone Unavailable Unavailable Unavailable [...] Check-Out Time Diagnosis PROBLEM VISIT GEOFF NICOLAS [facility] REGULATORY AFFAIRS ANALYST 7 8:44AM 9:25AM Clinical Notes Includes: Clinical Notes from this encounter No Clinical Notes Recorded
--- OUTSIDE RECORDS SUMMARY | 2025-01-28 13:36 | XMS_ITS | Clinical Summary ---
Author Organization [facility] Address [address] [place] [address] Phone Care Team Providers Care Panel Laminator Name Role Phone Nicolás Dey MD Primary Care Provider [phone] Allergies No known active allergies Medications calcium carbonate 1500 (600 Ca) MG tablet 1 tab/cap bid 0 09/11/2016 Active lovastatin (MEVACOR) 40 MG tablet 1 tab/cap qday 0 09/11/2016 Active lisinopril-hydr oCHLOROthiazide (PRINZIDE,ZESTO RETIC) 10-12.5 MG per tablet 1 tab/cap qday [...] result of kidney function study 016 Immunizations Immunization Administration Dates Next Due Influenza TIV (IM) [...] = 0.6 oz pur e alcohol) Comments Unknown Sex and Gender Information Value Date Recorded Sex Assigned at Not on file Legal Sex Female 7:47 AM [facility] Gender Identity Not on file Sexual Orientation [...] and Medium Risk (2 of 3 - PPSV23) 09/11/2017 09/11/2016 Influenza Vaccine (Season Ended) 2025 09/11/20 16 Insurance [employer] MEDICARE Care Teams Panel Laminator Relationship Specialty Start Date End Date Nicolás Dey MD [address] [place] [address] PCP - General Internal Medicine 04/01/19
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
--- OUTSIDE RECORDS SUMMARY | 2025-01-28 13:37 | XMS_ITS | Clinical Summary ---
Author Organization [facility] Address [address] [place] [address] Phone Care Team Providers Care Roller Pneumatic Name Role Phone Unavailable Unavailable Unavailable Reason for Visit and Chief Complaint ADAPTIVE PHYSICAL EDUCATION SPECIALIST EXAM Plan of Treatment No Plan of [...] Location Date Check-In Time Check-Out Time Diagnosis ADAPTIVE PHYSICAL EDUCATION SPECIALIST EXAM GEOFF NICOLAS [facility] FIBER OPTIC TECHNICIAN 7 8:47AM 9:29AM Clinical Notes Includes: Clinical Notes from this encounter No Clinical Notes Recorded
--- OUTSIDE RECORDS SUMMARY | 2025-01-28 13:37 | XMS_ITS | Clinical Summary ---
Author Organization [facility] Address [address] [place] [address] Care Team Providers Care Fur Sorter Name Role Phone Nicolás Patton MD Primary Care Provider [phone] Allergies No known active allergies Medications [facility] [...] (06/26/2023): Added automatically from request for surgery [id number] Ankle instability, left 08/22/2022 Neuropathy of left [...] - 12/24/2024 11:59 PM CDT Hospital Encounter [facility] [address] [facility] [address] Nicolás Patton MD Discharge Disposition: Home or Self Care (Routine Discharge) 12/24/2024 Travel 12/16/2024 10:19 AM CDT - 12/16/2024 11:59 PM CDT Hospital Encounter [facility] [address] [facility] [place] [address] Nicolás Patton MD Discharge Disposition: Home or Self Care (Routine Discharge) 12/16/2024 Travel 12/15/2024 Telephone [facility] [address] [facility] [address] [place] [address] Lizzie Lu, MEDICAL SALES ASSOCIATE-BC Question from Last 3 Months Family History [...] AM CDT Legal Sex Female 6:01 PM LOG GRADER Gender Identity Not on file Sexual Orientation [...] 76.7 kg (169 lb) 08/14/2023 8:57 AM LOG GRADER Height 170.2 cm (5' 7 ) 08/14/2023 8:57 AM LOG GRADER Body Mass Index 26.47 08/14/2023 8:57 AM LOG GRADER Plan of Treatment Health Maintenance Due Date Last Done Comments DTaP, Tdap and Td Vaccines ( 1 - Tdap) 1963 Zoster Vaccines (1 of 2) 1994 Annual Medicare Wellness Visit 2009 Dexa Scan (General) 2009 Pneumococcal Vaccine: 50+ Years (2 of 2 - PPSV23) 11/06/2016 09/11/2016, 08/02/2015 RSV Immunization or 60+ Years (1 - 1-dose 75+ series) 2019 COVID-19 Vaccine ( - 2023-2 5 season) 2024 Meningococcal B Vaccine Aged Out No l onger eligible based on patient's age to complete this topic Meningococcal Vaccine Aged Out No sarah marcia eligible based on patient's age to complete this topic RSV Immunizations Under 20 Months Aged Out No longer eligible b ased on patient's age to complete this topic Medical Devices Implanted Type Area Emery Wheel Worker Device Identifier Shelf Expiration Date Model / Serial / Lot Screw Bone 8mm 50mm 25mm Asnis Iii Titanium Orthopedic Self Tapping Self Drilling Cannulated - [id number] Implanted:Qty: 2 on 10/10/2022 by Walter Rawls MD at [facility] Screw Left: Ankle [employer]I [employer]UM[employer] - DIV TEMI MARLEN [id number] / / Pain Stimulator Description:PAIN STIMULATOR IN LOWER BACK ON THE LEFT SIDE 3.2 Guide Pin Implanted:Qty: 2 on 10/10/2022 by Walter Rawls MD at [facility] Left: Ankle [id number] / / Washer 8.0 Implanted:Qty: 2 on 10/10/2022 by Walter Rawls MD at [facility] Left: Ankle [id number] / / 8.0x120 Cannulated Screw Implanted:Qty: 2 on 10/10/2022 by Walter Rawls MD at [facility] Left: Ankle [id number] / / Explanted Type Area Emery Wheel Worker Device Identifier Shelf Expiration Date Model / Serial / Lot Guide Wire, Smooth Explanted:Qty: 1 on 07/24/2023 by Walter Rawls MD at [facility] Left: Ankle [employer] - DIV TEMI MARLEN [id number] / / Procedures Procedure Name Priority Date/Time Associated Diagnosis Comments USV REAGAN [employer] BRENDA Routine 12/24/2024 9:39 AM CDT Absent pedal pulses XR FOOT LT 3V Routine 12/16/2024 10:51 AM CDT Pain in left foot XR ANKLE LT M3V Routine 12/16/2024 10:51 AM CDT Pain in left foot from Last 3 Months Results * USV REAGAN [employer] BRENDA (12/24/2024 9:39 AM CDT) Anatomical Region Laterality Modality Extremity Ultrasound 12/28/2024 5:05 PM CDT Impressions 12/28/2024 5:07 PM CDT IMPRESSION: Patent bilateral ankle arteries. Left ankle with mildly decreased perfusion at rest. Normal right ankle perfusion at rest. Referred By: NICOLÁS PATTON Interpreted By: Kishan Rutledge MD, 12/28/2024 5:05 PM Narrative 12/28/2024 5:07 PM CDT [address] [place] [address] Examination: USV REAGAN [employer] BRENDA Exam time: 12/24/2024 9:39 AM INDICATION: [...] Procedure Note Kishan Rutledge MD - 12/28/[address] [place] [address] Examination: [employer] BRENDA Exam time: 12/24/2024 9:39 AM INDICATION: [...] MD, 12/28/2024 5:05 PM Nicolás Patton MD [facility] Final Result * XR FOOT LT 3V (12/16/2024 10:51 AM CDT) Anatomical Region Laterality Modality Foot Radiographic Becca ging 12/17/2024 8:42 AM CDT Impressions 12/17/2024 8:46 AM CDT IMPRESSION: No acute findings. See text. Ordered By: NICOLÁS PATTON Interpreted By: Yohan Almazan MD, 12/17/2024 8:42 AM Narrative 12/17/2024 8:46 AM CDT [address] [place] [address] Examination: Left ankle and foot. Exam time: [...] Procedure Note Yohan Almazan MD - 12/17/[address] [place] [address] Examination: Left ankle and foot. Exam time: [...] 8:42 AM Narrative 12/17/2024 8:46 AM CDT [address] [place] [address] Examination: Left ankle and foot. Exam time: [...] Procedure Note Yohan Almazan MD - 12/17/[address] [place] [address] Examination: Left ankle and foot. Exam time: [...] from Last 3 Months Insurance MEDICARE MEDICARE [employer] INSURANCE Care Teams Fur Sorter Relationship Specialty Start Date End Date Nicolás Patton MD [address] [place] [address] PCP - General FAMILY PRACTICE 07/17/19
--- OUTSIDE RECORDS SUMMARY | 2025-01-28 13:37 | XMS_ITS ---
Care Plan - [facility] Created on: January 28, 2025 CHAIM VALE : 1945 Sex: Female Author Organization [facility] Address [address] [place] [address] Phone Care Team Providers Care Bushel Girl Name Role Phone Unavailable Unavailable Unavailable
--- OUTSIDE RECORDS SUMMARY | 2025-01-28 13:37 | XMS_ITS | Clinical Summary ---
Author Organization [facility] Address [address] [place] [address] Phone Care Team Providers Care Assistant Program Manager Name Role Phone Unavailable Unavailable Unavailable Reason for Visit and Chief Complaint PROJECT MANAGER FINANCE EXAM Plan of Treatment No Plan of [...] Location Date Check-In Time Check-Out Time Diagnosis PROJECT MANAGER FINANCE EXAM PRASANNA [facility] STONE BREAKER 8 10:12AM 11:08AM Clinical Notes Includes: Clinical Notes from this encounter No Clinical Notes Recorded
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
--- OUTSIDE RECORDS SUMMARY | 2025-01-28 13:37 | XMS_ITS | Clinical Summary ---
Author Organization [facility] Address [address] [place] [address] Phone Care Team Providers Care Pool Table Mechanic Name Role Phone Unavailable Unavailable Unavailable [...] Date Check-In Time Check-Out Time Diagnosis DEXASCAN [facility] PEARL CUTTER 07/09/2007 8:27AM 8:55AM Clinical Notes Includes: Clinical Notes from this encounter No Clinical Notes Recorded
== END 2025-01-28 11:41 | disposition home or self-care (01) ==
PROVIDERS: PCP Family Medicine; Visit Provider Family Medicine
DX: J06.9 Acute upper respiratory infection, unspecified (principal)
CPT/HCPCS: 71046

== ENCOUNTER 2025-02-13 08:21 | Outpatient (CLI) | payer MEDICARE, SELFPAY ==
--- OUTSIDE RECORDS SUMMARY | 2025-02-13 08:25 | XMS_ITS | Clinical Summary ---
Author Organization [facility] Address [address] [place] [address] Care Team Providers Care It Admin Name Role Phone Nicolás Patton MD Primary Care Provider [phone] Allergies No known active allergies Medications [facility] [...] (06/26/2023): Added automatically from request for surgery [id number] Ankle instability, left 08/22/2022 Neuropathy of left [...] - 12/24/2024 11:59 PM CDT Hospital Encounter [facility] [address] [facility] [place] [address] Nicolás Patton MD Discharge Disposition: Home or Self Care (Routine Discharge) 12/24/2024 Travel 12/16/2024 10:19 AM CDT - 12/16/2024 11:59 PM CDT Hospital Encounter [facility] [address] [facility] [place] [address] Nicolás Patton MD Discharge Disposition: Home or Self Care (Routine Discharge) 12/16/2024 Travel 12/15/2024 Telephone [facility] [address] [place] [address] Lizzie Lu, POLE SHAVER-BC Question from Last 3 Months Family History [...] AM CDT Legal Sex Female 6:01 PM FLUID PUMP OPERATOR Gender Identity Not on file Sexual Orientation [...] 76.7 kg (169 lb) 08/14/2023 8:57 AM FLUID PUMP OPERATOR Height 170.2 cm (5' 7 ) 08/14/2023 8:57 AM FLUID PUMP OPERATOR Body Mass Index 26.47 08/14/2023 8:57 AM FLUID PUMP OPERATOR Plan of Treatment Health Maintenance Due Date [...] this topic Medical Devices Implanted Type Area Retort Condenser Attendant Device Identifier Shelf Expiration Date Model / Serial / Lot Screw Bone 8mm 50mm 25mm Asnis Iii Titanium Orthopedic Self Tapping Self Drilling Cannulated - [id number] Implanted:Qty: 2 on 10/10/2022 by Walter Rawls MD at [facility] Screw Left: Ankle [employer] - DIV TEMI MARLEN [id number] / / Pain Stimulator Description:PAIN STIMULATOR IN LOWER BACK ON THE LEFT SIDE 3.2 Guide Pin Implanted:Qty: 2 on 10/10/2022 by Walter Rawls MD at [facility] Left: Ankle [id number] / / Washer 8.0 Implanted:Qty: 2 on 10/10/2022 by Walter Rawls MD at [facility] Left: Ankle [id number] / / 8.0x120 Cannulated Screw Implanted:Qty: 2 on 10/10/2022 by Walter Rawls MD at [facility] Left: Ankle [id number] / / Explanted Type Area Retort Condenser Attendant Device Identifier Shelf Expiration Date Model / Serial / Lot Guide Wire, Smooth Explanted:Qty: 1 on 07/24/2023 by Walter Rawls MD at [facility] Left: Ankle [employer] - DIV TEMI MARLEN [id number] / / Procedures Procedure Name Priority Date/Time Associated Diagnosis Comments USV REAGAN [facility] [place] BRENDA Routine 12/24/2024 9:39 AM CDT Absent pedal pulses XR FOOT LT 3V Routine 12/16/2024 10:51 AM CDT Pain in left foot XR ANKLE LT M3V Routine 12/16/2024 10:51 AM CDT Pain in left foot from Last 3 Months Results * USV REAGAN [facility] [place] BRENDA (12/24/2024 9:39 AM CDT) Anatomical Region Laterality Modality Extremity Ultrasound 12/28/2024 5:05 PM CDT Impressions 12/28/2024 5:07 PM CDT IMPRESSION: Patent bilateral ankle arteries. Left ankle with mildly decreased perfusion at rest. Normal right ankle perfusion at rest. Referred By: NICOLÁS PATTON Interpreted By: Kishan Rutledge MD, 12/28/2024 5:05 PM Narrative 12/28/2024 5:[address] [place] [address] Examination: USV REAGAN [facility] [place] BRENDA Exam time: 12/24/2024 9:39 AM INDICATION: [...] Procedure Note Kishan Rutledge MD - 12/28/[address] [place] [address] Examination: [employer] BRENDA Exam time: 12/24/2024 9:39 AM INDICATION: [...] MD, 12/28/2024 5:05 PM Nicolás Patton MD [facility] Final Result * XR FOOT LT 3V (12/16/2024 10:51 AM CDT) Anatomical Region Laterality Modality Foot Radiographic Becca ging 12/17/2024 8:42 AM CDT Impressions 12/17/2024 8:46 AM CDT IMPRESSION: No acute findings. See text. Ordered By: NICOLÁS PATTON Interpreted By: Yohan Almazan MD, 12/17/2024 8:42 AM Narrative 12/17/2024 8:46 AM CDT [address] [place] [address] Examination: Left ankle and foot. Exam time: [...] Procedure Note Yohan Almazan MD - 12/17/[address] [place] [address] Examination: Left ankle and foot. Exam time: [...] 8:42 AM Narrative 12/17/2024 8:46 AM CDT [address] [place] [address] Examination: Left ankle and foot. Exam time: [...] Procedure Note Yohan Almazan MD - 12/17/[address] [place] [address] Examination: Left ankle and foot. Exam time: [...] from Last 3 Months Insurance MEDICARE MEDICARE [employer] INSURANCE Care Teams It Admin Relationship Specialty Start Date End Date Nicolás Patton MD [address] [place] [address] PCP - General FAMILY PRACTICE 07/17/19
--- OUTSIDE RECORDS SUMMARY | 2025-02-13 08:25 | XMS_ITS | Clinical Summary ---
Author Organization [facility] Address [address] [place] [address] Phone Care Team Providers Care Glassine Machine Tender Name Role Phone Nicolás Dey MD Primary Care Provider [phone] Allergies No known active allergies Medications calcium [...] on file Legal Sex Female 7:47 AM [facility] Gender Identity Not on file Sexual Orientation [...] 09/11/20 16 Insurance CIGNA MEDICARE Care Teams Glassine Machine Tender Relationship Specialty Start Date End Date Nicolás Dey MD [address] [place] [address] PCP - General Internal Medicine 04/01/19
[2025-02-13 09:10] LABS: Basophils Absolute Auto 0.06 K/mm3 (0.00-0.10); Basophils Percent Auto 0.6 % (0.0-1.0); Eosinophils Absolute Auto 0.33 K/mm3 (0.02-0.50); Eosinophils Percent Auto 3.6 % (1.0-6.0); Hematocrit 28.5 % (35.0-42.0); Hemoglobin 8.8 g/dL (11.7-13.8); Immature Granulocyte Absolute 0.12 K/mm3 (0.00-0.00); Immature Granulocyte Percent A 1.3 % (0.0-0.0); Lymphocytes Absolute Auto 1.23 K/mm3 (1.10-4.50); Lymphocytes Percent Auto 13.2 % (18.0-42.0); Mean Corpuscular HGB Conc 30.9 g/dL (32-36); Mean Corpuscular Volume 87.4 fL (78.0-102.0); Mean Platelet Volume 10.4 fl (9.2-11.8); Monocytes Absolute Auto 0.67 K/mm3 (0.10-0.90); Monocytes Percent Auto 7.2 % (2.0-11.0); Neutrophils Absolute Auto 6.88 K/mm3 (1.70-7.20); Neutrophils Percent Auto 74.1 % (50.0-70.0); Platelet Count Result 393 K/mm3 (150-420); Red Blood Count 3.26 M/mm3 (4.20-5.40); Red Cell Distribution Width 13.3 % (11.6-14.4); White Blood Count 9.3 K/mm3 (4.8-10.8)
[2025-02-13 09:23] LABS: Creatinine Urine 82.14 mg/dL (40-278)
[2025-02-13 09:26] LABS: Add Urine Microscopic? YES; Appearance Urine Clear (Clear); Bilirubin Urine Negative (Negative); Blood Urine Negative (Negative); Color Urine Light Yellow (Yellow); Glucose Urine UA Negative (Negative); Ketones Urine Negative (Negative); Leukocyte Esterase Ur Negative (Negative); Nitrate Urine Negative (Negative); Protein Urine 3+ (Negative); Specific Grav Ur 1.025 (1.010-1.020); Urobilinogen Urine 0.2 mg/dL (0.2-1.0); pH Urine 5.5 (5.0-8.0)
[2025-02-13 09:28] LABS: Total Protein Urine Random > 250.0 mg/dL (0.0-11.9); Ur Ttl Prot Creatinine Ratio 3.04 mg/mg (0-0.20)
[2025-02-13 09:41] LABS: Bacteria Urine Trace /hpf; Hyaline Casts Urine 0-2 /lpf; RBC Urine 0-2 /hpf (0-2); Squamous Epithelial Cell Urine Few /hpf (Few); WBC Urine 0-5 /hpf (0-3)
[2025-02-13 10:26] LABS: Alanine Aminotransferase 11 U/L (6-35); Albumin Level 3.1 g/dL (3.5-5.1); Alkaline Phosphatase 142 U/L (38-126); Anion Gap 7 mmol/L (4-12); Aspartate Amino Transferase 17 U/L (14-36); Bilirubin,Total 0.2 mg/dL (0.2-1.3); Blood Urea Nitrogen 42 mg/dL (7-17); Calcium 8.3 mg/dL (8.4-10.2); Carbon Dioxide 19 mmol/L (22-30); Chloride 115 mmol/L (98-107); Cholesterol 98 mg/dL (0-200); Estimated Glomerular Filt Rate 15; Glucose 94 mg/dL (65-110); HDL Direct 29 mg/dL; LDL Cholesterol Calculated 38 mg/dL (<130); Osmolality Calculated 302 mOsm/kg (285-295); Phosphorus 5.6 mg/dL (2.5-4.5); Potassium 4.4 mmol/L (3.4-5.0); Sodium 141 mmol/L (137-145); Total Protein 5.7 g/dL (6.3-8.2); Triglycerides 155 mg/dL (<150)
== END 2025-02-13 08:22 | disposition home or self-care (01) ==
LOC: CHSLAB 08:23
PROVIDERS: PCP Family Medicine; Visit Provider Internal Medicine Nephrology
DX: N18.4 Chronic kidney disease, stage 4 (severe) (principal); I12.9 Hypertensive chronic kidney disease with stage 1 through stage 4 chronic kidney disease, or unspecified chronic kidney disease
CPT/HCPCS: 36415; 80053; 80061; 81001; 82570; 84100; 84156; 84443; 85025

== ENCOUNTER 2025-04-07 09:12 | Outpatient (CLI) | payer MEDICARE, SELFPAY ==
--- OUTSIDE RECORDS SUMMARY | 2025-04-07 09:20 | XMS_ITS | Clinical Summary ---
Author Organization [facility] Address [address] [place] [phone] Phone Care Team Providers Care Grey Roll Worker Name Role Phone Nicolás Dey MD Primary Care Provider [phone] Allergies No known active allergies Medications calcium [...] on file Legal Sex Female 7:47 AM [facility] Gender Identity Not on file Sexual [...] 9:09 AM CDT Height 167.6 cm (5' 6) 06/22/2022 9:09 AM CDT Body Mass Index 30.67 06/22/2022 9:09 AM CDT Plan of Treatment Health Maintenance Due Date Last Done Comments Pneumococcal PPSV23/PCV13 65 + Years / Low and Medium Risk (2 of 3 - PCV20 or PCV21) 09/11/2017 09/11/2016 Influenza Vaccine (Season Ended) 2025 09/11/20 16 Insurance CIGNA MEDICARE Care Teams Grey Roll Worker Relationship Specialty Start Date End Date Nicolás Dey MD [address] [facility] [place] [address] PCP - General Internal Medicine 04/01/19
--- OUTSIDE RECORDS SUMMARY | 2025-04-07 09:20 | XMS_ITS | Patient Health Record ---
Author Organization [facility] Address [address] [facility] [address] [place] [address] Care Team Providers Care Divinity Teacher Name Role Phone JENI LOPEZ Unavailable [phone] Reason For Referral No Information Plan Of Treatment No Information Insurance Providers Payer Name Payer Address Payer Phone Subscriber Number Group Number Insured Name Patient Relationship to Insured Coverage Start Date Coverage End Date MEDICARE [place] [address] [address] [place], [place] [id number] AditiAugusten Self - patient is the insured 9 MEDICARE [place] [address] [place], [place] [id number] Aditi Juliana Self - patient is the insured 9 [facility] FINANCIAL [facility] [place] [address] [id number] PLAN F AditiAugusten Self - patient is the insured 9
[2025-04-07 10:03] LABS: Albumin Level 3.3 g/dL (3.5-5.1); Anion Gap 8 mmol/L (4-12); Blood Urea Nitrogen 43 mg/dL (7-17); Calcium 8.8 mg/dL (8.4-10.2); Carbon Dioxide 18 mmol/L (22-30); Chloride 120 mmol/L (98-107); Estimated Glomerular Filt Rate 10; Glucose 89 mg/dL (65-110); Osmolality Calculated 311 mOsm/kg (285-295); Potassium 4.9 mmol/L (3.4-5.0); Sodium 146 mmol/L (137-145)
== END 2025-04-07 09:13 | disposition home or self-care (01) ==
LOC: CHSLAB 09:14
PROVIDERS: PCP Family Medicine; Visit Provider Internal Medicine Nephrology
DX: N18.5 Chronic kidney disease, stage 5 (principal)
CPT/HCPCS: 36415; 80069

== ENCOUNTER 2025-04-30 15:08 | Outpatient (CLI) | payer MEDICARE, SELFPAY ==
--- NOTE | ~2025-04-30 | XR_ITS ---
CHEST RADIOGRAPH, PA AND LATERAL CLINICAL HISTORY: ACUTE UPPER RESPIRATORY INFECTION; DYSPNEA . COMPARISON: 01/28/2025 TECHNIQUE: PA and lateral views of the chest. FINDINGS Dorsal column stimulator device is noted. The remainder of the cardiomediastinal silhouette is partially obscured and otherwise unremarkable. Interval development of a large left-sided pleural effusion, when compared with previous study perfor med 3 months earlier. The remainder of the lungs are clear. IMPRESSION: Interval development of a large left-sided pleural effusion Reviewed, dictated and finalized at location A.
--- OUTSIDE RECORDS SUMMARY | 2025-04-30 15:11 | XMS_ITS | Clinical Summary ---
Author Organization [facility] Address [address] [place] [phone] Phone Care Team Providers Care Undercoater Name Role Phone Nicolás Dey MD Primary Care Provider [phone] Allergies No known active allergies Medications calcium [...] on file Legal Sex Female 7:47 AM [facility] Gender Identity Not on file [...] PCV20 or PCV21) 09/11/2017 09/11/2016 Influenza Vaccine (#1) 2025 09/11/2016 Insurance CIGNA MEDICARE Care Teams Undercoater Relationship Specialty Start Date End Date Nicolás Dey MD [address] [place] [address] [place] [address] PCP - General Internal Medicine 04/01/19
--- OUTSIDE RECORDS SUMMARY | 2025-04-30 15:11 | XMS_ITS | Clinical Summary ---
Author Organization [facility] Address [address] [place] [address] Care Team Providers Care Is Support Analyst Name Role Phone Nicolás Dey MD Primary Care Provider [phone] Allergies No known active allergies Medications [facility] [...] (06/26/2023): Added automatically from request for surgery [id number] Ankle instability, left 08/22/2022 Neuropathy of left foot 08/22/2022 Acquired equinovarus deformity of left foot 03/2022 Leg pain 07/24/2019 Essential hypertension 07/24/2019 CKD (chronic kidney disease) 07/24/2019 Smoking 07/24/2019 Resolved Problems Problem Noted Date Diagnosed Date Resolved Date Status post orthopedic surge ry, follow-up exam 11/28/2022 12/04/2022 Family History Medical History Relation Comments Diabetes [...] AM CDT Legal Sex Female 6:01 PM DIRECTOR OF CLINICAL APPLICATIONS Gender Identity Not on file Sexual Orientation [...] 76.7 kg (169 lb) 08/14/2023 8:57 AM DIRECTOR OF CLINICAL APPLICATIONS Height 170.2 cm (5' 7) 08/14/2023 8:57 AM DIRECTOR OF CLINICAL APPLICATIONS Body Mass Index 26.47 08/14/2023 8:57 AM DIRECTOR OF CLINICAL APPLICATIONS Plan of Treatment Health Maintenance Due Date [...] this topic Medical Devices Implanted Type Area Glue Spreading Machine Operator Device Identifier Shelf Expiration Date Model / Serial / Lot Screw Bone 8mm 50mm 25mm Asnis Iii Titanium Orthopedic Self Tapping Self Drilling Cannulated - [id number] Implanted:Qty: 2 on 10/10/2022 by Walter Rawls MD at [facility] Screw Left: Ankle [employer] - DIV TEMI MARLEN [id number] / / Pain Stimulator Description:PAIN STIMULATOR IN LOWER BACK ON THE LEFT SIDE 3.2 Guide Pin Implanted:Qty: 2 on 10/10/2022 by Walter Rawls MD at [facility] Left: Ankle [id number] / / Washer 8.0 Implanted:Qty: 2 on 10/10/2022 by Walter Rawls MD at [facility] Left: Ankle [id number] / / 8.0x120 Cannulated Screw Implanted:Qty: 2 on 10/10/2022 by Walter Rawls MD at [facility] Left: Ankle [id number] / / Explanted Type Area Glue Spreading Machine Operator Device Identifier Shelf Expiration Date Model / Serial / Lot Guide Wire, Smooth Explanted:Qty: 1 on 07/24/2023 by Walter Rawls MD at [facility] Left: Ankle [employer] - DIV [employer]I MARLEN [id number] / / Insurance MEDICARE MEDICARE LIFE INSURANCE Care Teams Is Support Analyst Relationship Specialty Start Date End Date Nicolás Dey MD [address] [place], [place] [id number] PCP - General FAMILY PRACTICE 10/10/19
--- OUTSIDE RECORDS SUMMARY | 2025-04-30 15:11 | XMS_ITS | Patient Health Record ---
Author Organization [facility] Address [address] [facility] [address] [facility] [address] [place] [address] Care Team Providers Care Patient Relations Director Name Role Phone JENI LOPEZ Unavailable [phone] Reason For Referral No Information Plan Of Treatment No Information Insurance Providers Payer Name Payer Address Payer Phone Subscriber Number Group Number Insured Name Patient Relationship to Insured Coverage Start Date Coverage End Date [place]ARE [place] [address] [address] [place], [place] [id number] AditiAugusten Self - patient is the insured 9 MEDICARE [place] [address] [place], [place] [id number] Aditi Juliana Self - patient is the insured 9 [facility] FINANCIAL [facility] [place] [address] [id number] PLAN F AditiAugusten Self - patient is the insured 9
== END 2025-04-30 15:09 | disposition home or self-care (01) ==
PROVIDERS: PCP Family Medicine; Visit Provider Family Medicine
DX: J06.9 Acute upper respiratory infection, unspecified (principal); R06.09 Other forms of dyspnea; J90 Pleural effusion, not elsewhere classified
CPT/HCPCS: 71046

== ENCOUNTER 2025-04-30 23:44 | Inpatient (IN) | payer MEDICARE, SELFPAY ==
--- NOTE | ~2025-04-30 | US_ITS ---
EXAMINATION: US venous doppler [facility] DATE: 05/02/2025 15:26 INDICATION: Swelling TECHNIQUE: Grayscale ultrasound images without and with compression and Doppler ultrasound images of the bilateral lower extremity veins were obtained. COMPARISON: 01/16/2023 FINDINGS: The visualized portions of right common femoral vein, profunda (deep) femoral vein, femoral vein, pop liteal vein, peroneal veins, posterior tibial veins, and greater saphenous vein outflow are patent. The visualized portions of left common femoral vein, profunda femoral vein, femoral vein, popliteal v ein, peroneal veins, posterior tibial veins, and greater saphenous vein outflow are patent. IMPRESSION: 1. No deep venous thrombosis within the bilateral lower extremities. Reviewed, dictated and finalized at location A.
--- NOTE | ~2025-04-30 | US_ITS ---
EXAMINATION: US abdomen limited DATE: 05/02/2025 17:00 INDICATION: rule out ascites with volume overload . TECHNIQUE: Grayscale and Doppler ultrasound images of the abdomen were obtained. COMPARISON: None. FINDINGS: Sonographic interrogation of the abdomen to evaluate for ascites. No definite intra-abdomin al fluid detected. Examination limited by extensive bowel gas. IMPRESSION: No definite sonographic evidence of ascites. Reviewed, dictated and finalized at location K.
--- NOTE | ~2025-04-30 | US_ITS ---
EXAMINATION: US renal BI DATE: 05/01/2025 16:23 INDICATION: Elevated creatinine TECHNIQUE: Multiple ultrasound grayscale images of the kidneys were obtained. COMPARISON: None. FINDINGS: The lower pole the right kidney which appeared atrophic on MRI dated 06/13/17 is partially obscured by shadowing bowel gas. Visualized portion of the right kidney measures 8.0 x 4.3 cm[address] at the upper pole the right kidney. The left kidney measures 10.1 x 4.3 x 5.6 cm. A couple cysts a t the left kidney measuring 1.6 cm at the lower pole and 1.2 cm at the upper pole. The kidneys demons trate normal echogenicity. There is no hydronephrosis in either kidney. No stones identified. The bl adder is normal with bilateral ureteral jets visualized on color Doppler. IMPRESSION: 1. Bilateral renal cysts. No hydronephrosis. 2. Lower pole the right kidney is obscured but appeared atrophic on prior MRI. Reviewed, dictated and finalized at location A.
--- NOTE | ~2025-04-30 | XR_ITS ---
CHEST RADIOGRAPH CLINICAL HISTORY: sob . COMPARISON: 05/01/2025 TECHNIQUE: Single portable view of the chest. FINDINGS The cardiomediastinal silhouette is enlarged, unchanged. Dorsal column stimulator device is noted. Redemonstration of a left-sided pleural effusion, moderate in size. Increased interstitial markings are identified bilaterally, findings suggesting mild pulmonary vascul ar congestion. The lungs are otherwise clear. IMPRESSION: Mild pulmonary vascular congestion with a moderate left-sided pleural effusion. Reviewed, dictated and finalized at location A.
--- NOTE | ~2025-04-30 | XR_ITS ---
[id number] 05/01/2025 10:37 Indication: Postthoracentesis Procedure: AP view of the chest Comparison: 04/30/2025 Findings: Moderate left pleural effusion. No pneumothorax identified post procedure. There is atheros clerosis of the aorta. Right lung clear. Spinal stimulator leads overlying the thoracic spine. There is scoliosis. Impression: 1: Moderate left pleural effusion. No pneumothorax identified post procedure. Reviewed, dictated and finalized at location A. Impression: 1: Moderate left pleural effusion. No pneumothorax identified post procedure.
--- NOTE | ~2025-04-30 | US_ITS ---
EXAMINATION: US thoracentesis DATE: 05/01/2025 10:41 INDICATION: Left-sided pleural effusion with shortness of breath TECHNIQUE: The procedure and its risks, benefits, and alternatives were discussed with the patient. Potential risks discussed included bleeding, infection, and pneumothorax. The patient understood the risks and agreed to proceed. A timeout was then performed as per protocol. The patient remained in the supine position, as she appeared to too weak for the seated position. The skin was prepped and draped in sterile fashion. 1% lidocaine was used for local anesthesia. Under ultrasound guidance, a 5 Fr catheter with trocar was advanced into the left pleural effusion, a nd the trocar needle removed. The catheter was then attached to vacuum suction. The pleural effusion was evacuated based on patient tolerance. The catheter was then removed, and a sterile dressing was applied. There were no immediate complications. Postprocedure x-ray was without pneumothorax. FINDINGS: Ultrasound images demonstrate a left-sided pleural effusion and the catheter within the fluid. IMPRESSION: 1. Successful ultrasound-guided thoracentesis yielding 700 mL of thin yellow fluid. Reviewed, dictated and finalized at location A. IMPRESSION: 1. Successful ultrasound-guided thoracentesis yielding 700 mL of thin yellow f luid.
--- NOTE | 2025-04-30 23:46 | ECG_ITS ---
Test Date: 2025-05-01 01:44:12 Measurements Intervals [place] Rate: 79 P: 19 [place]: 170 QRS: 49 QRSD: 81 T: 31 QT: 388 QTc: 445 Interpretive Statements SINUS RHYTHM LOW QRS VOLTAGE IN PRECORDIAL LEADS [QRS DEFLECTION < 1.0 mV IN CHEST LEADS] No previous ECG available for comparison Electronically Signed On 05-02-2025 18:27:34 CDT by Doc Bermudez M.D.
--- OUTSIDE RECORDS SUMMARY | 2025-04-30 23:47 | XMS_ITS | Clinical Summary ---
Author Organization [facility] Address [address] [place] [id number] Phone Care Team Providers Care Metal Shaping Machine Operator Name Role Phone Nicolás Dey MD Primary Care Provider [phone] Allergies No known active allergies Medications calcium [...] on file Legal Sex Female 7:47 AM [facility] Gender Identity Not on file Sexual Orientation [...] 2025 09/11/2016 Insurance [employer] MEDICARE Care Teams Metal Shaping Machine Operator Relationship Specialty Start Date End Date Nicolás Dey MD [address] [place] [address] [place] [address] PCP - General Internal Medicine 04/01/19
--- OUTSIDE RECORDS SUMMARY | 2025-04-30 23:47 | XMS_ITS | Clinical Summary ---
Author Organization [facility] Address [address] [place] [address] Care Team Providers Care Environmental Program Manager Name Role Phone Nicolás Dey MD Primary Care Provider [phone] Allergies No known active allergies Medications [facility] [...] (06/26/2023): Added automatically from request for surgery [id number] Ankle instability, left 08/22/2022 Neuropathy of left [...] AM CDT Legal Sex Female 6:01 PM AVIATION SURVIVAL TECHNICIAN Gender Identity Not on file Sexual Orientation [...] 76.7 kg (169 lb) 08/14/2023 8:57 AM AVIATION SURVIVAL TECHNICIAN Height 170.2 cm (5' 7) 08/14/2023 8:57 AM AVIATION SURVIVAL TECHNICIAN Body Mass Index 26.47 08/14/2023 8:57 AM AVIATION SURVIVAL TECHNICIAN Plan of Treatment Health Maintenance Due Date [...] this topic Medical Devices Implanted Type Area Endbander Device Identifier Shelf Expiration Date Model / Serial / Lot Screw Bone 8mm 50mm 25mm Asnis Iii Titanium Orthopedic Self Tapping Self Drilling Cannulated - [id number] Implanted:Qty: 2 on 10/10/2022 by Walter Rawls MD at [facility] Screw Left: Ankle [employer] DIV [employer]I MARLEN [id number] / / Pain Stimulator Description:PAIN STIMULATOR IN LOWER BACK ON THE LEFT SIDE 3.2 Guide Pin Implanted:Qty: 2 on 10/10/2022 by Walter Rawls MD at [facility] Left: Ankle [id number] / / Washer 8.0 Implanted:Qty: 2 on 10/10/2022 by Walter Rawls MD at [facility] Left: Ankle [id number] / / 8.0x120 Cannulated Screw Implanted:Qty: 2 on 10/10/2022 by Walter Rawls MD at [facility] Left: Ankle [id number] / / Explanted Type Area Endbander Device Identifier Shelf Expiration Date Model / Serial / Lot Guide Wire, Smooth Explanted:Qty: 1 on 07/24/2023 by Walter Rawls MD at [facility] Left: Ankle [employer] - DIV [employer] MAR[employer] [id number] / / Insurance MEDICARE MEDICARE LIFE INSURANCE Care Teams Environmental Program Manager Relationship Specialty Start Date End Date Nicolás Dey MD [address] [place], [place] [phone] PCP - General FAMILY PRACTICE 10/10/19
[2025-04-30 23:51] VITALS: O2SAT 90
[2025-04-30 23:53] VITALS: BP 171/71; O2SAT 98
[2025-05-01] VITALS (23 sets, daily range): BP systolic 142–174; BP diastolic 61–86; PULSE 80–87; RESP 18–20; TEMP 36.2–36.6; O2SAT 92–99; BMI 28.4; BMI 29.2
--- NOTE | 2025-05-01 | ECHO_ITS ---
Patient Info Name: Juliana Pennington Age: 79 years : 1945 Gender: Female Ht: 66 in Wt: 176 lbs BSA: 1.95 m2 HR: 92 bpm BP: 161 / 61 mmHg Technical Quality: Good Exam Date: 05/01/2025 12:48 PM Patient Status: I Admit Date: 05/01/2025 Exam Type: CA echo doppler color flow Complete two-dimensional, color flow and Doppler transthoracic echocardiogram is performed. Staff Referring Physician: Nicole Gao Panel Instrument Repairer: Patito Lazo Attending Provider: Tram Callahan Summary 1. Complete two-dimensional, color flow and Doppler transthoracic echocardiogram is performed. 2. Left ventricular chamber dimension is normal. 3. Left ventricular systolic function is normal, estimated at 60-65. 4. There is mild concentric increased left ventricular wall thickness. 5. The left ventricular diastolic function is grade I diastolic dysfunction. 6. E/e' 20 is elevated. 7. There is mild aortic valve sclerosis. 8. No pulmonary hypertension, estimated pulmonary arterial systolic pressure is 31 mmHg. 9. There is large pericardial effusion located posteriorly at 3.0 cm thickness, moderate amount located lateral and on right side, and small apically. Left Ventricle E/e' 20 is elevated. Left ventricular chamber dimension is normal. Left ventricular systolic function is normal, estimated at 60-65. There is mild concentric increased left ventricular wall thickness. The left ventricular diastolic function is grade I diastolic dysfunction. Right Ventricle Right ventricular chamber dimension is normal. Right ventricular systolic function is normal. Left Atria Left atrial chamber dimension is normal. Right Atria Right atrial chamber dimension is normal. Aortic Valve The aortic valve is trileaflet. There is mild aortic valve sclerosis. There is no aortic valve stenosis. There is no aortic valve regurgitation. Pulmonic Valve There is no pulmonic regurgitation. Mitral Valve There is no mitral valve stenosis. There is no mitral valve regurgitation. Tricuspid Valve There is no tricuspid valve regurgitation. No pulmonary hypertension, estimated pulmonary arterial systolic pressure is 31 mmHg. Pericardium/Pleural There is large pericardial effusion located posteriorly at 3.0 cm thickness, moderate amount located lateral and on right side, and small apically. No cardiac tamponade. Inferior Vena Cava Dilated inferior vena cava with >50% collapse upon inspiration consistent with elevated right atrial pressure, 5 mmHg. Aorta The aortic root size at the sinus of Valsalva is normal. Left Ventricular Outflow Tract Name Value Normal LVOT 2D LVOT Diameter 2.0 cm LVOT Doppler LVOT Peak Velocity 165 cm/s LVOT Peak Gradient 8 mmHg LVOT Mean Gradient 4 mmHg LVOT VTI 32 cm LVOT VTI/AV VTI Ratio 0.6 LVOT Stroke Volume 100 ml LVOT CO 9.1 l/min LVOT CI 4.7 l/min/m2 Pulmonic Valve Name Value Normal RVOT Doppler RVOT Peak Velocity 102 cm/s RVOT Peak Gradient 4 mmHg PV Doppler PV Peak Velocity 130 cm/s PV Peak Gradient 7 mmHg Mitral Valve Name Value Normal MV Diastolic Function MV E Peak Velocity 104 cm/s MV A Peak Velocity 151 cm/s MV E/A 0.7 MV Decel Time (PW) 255 ms MV Annular TDI MV E/e' (Septal) 19.0 MV E/e' (Lateral) 22.8 MV E/e' (Average) 20.9 Tricuspid Valve Name Value Normal TV Regurgitation Doppler TR Peak Velocity 254 cm/s TR Peak Gradient 26 mmHg Estimated PAP/RSVP RA Pressure 5 mmHg <=5 PA Systolic Pressure 31 mmHg <36 RV Systolic Pressure 31 mmHg <36 Aortic Valve Name Value Normal AV Doppler AV Peak Velocity 263 cm/s AV Peak Gradient 28 mmHg AV Mean Gradient 13 mmHg AV VTI 53 cm AV Area (Cont Eq VTI) 1.9 cm2 >=3.0 AV Area (Cont Eq Dionicio) 1.9 cm2 AV DI (Dionicio) 0.62 AV Regurgitation 2D LVOT Area 3.1 cm2 Ventricles Name Value Normal LV Dimensions 2D/MM IVS Diastolic Thickness (2D) 0.7 cm 0.6-1.0 LVID Diastole (2D) 3.9 cm 3.8-5.2 LVIW Diastolic Thickness (2D) 1.2 cm 0.6-0.9 LVID Systole (2D) 2.3 cm 2.2-3.5 LVOT Diameter 2.0 cm LV Mass (2D Cubed) 117.19 g 67.00-162.00 LV Mass Index (2D Cubed) 60 g/m2 43-95 Relative Wall Thickness (2D) 0.63 <=0.42 LV Fractional Shortening/Ejection Fraction 2D/MM LV Fractional Shortening (2D) 42 % 27-45 LV EF (2D Teichholz) 73 % LV Diastolic Volume (4C MOD) 84 ml LV EF (4C MOD) 69 % LV Diastolic Volume (2C MOD) 86 ml LV EF (2C MOD) 62 % LV Diastolic Volume (BP MOD) 85 ml 46-106 LV Diastolic Volume Index (BP MOD) 44 ml/m2 29-61 LV Systolic Volume (BP MOD) 29 ml 14-42 LV Systolic Volume Index (BP MOD) 15 ml/m2 8-24 LV EF (BP MOD) 65 % 54-74 LV Diastolic Length (4C) 7.9 cm LV Systolic Length (4C) 6.7 cm LV Stroke Volume (4C MOD) 58 ml Atria Name Value Normal LA Dimensions LA Volume (4C A-L) 32 ml LA Volume (BP A-L) 33 ml RA Dimensions RA Systolic Major Eaton Length (4C) 5.4 cm 2.2-2.8 RA Area (4C) 13.3 cm2 <=18.0 Report Signatures
[2025-05-01 00:10] LABS: Hematocrit 27.4 % (37.0-47.0); Hemoglobin 8.5 g/dL (12.0-15.0); Immature Granulocyte Percent A 0.7 % (0-0.5); Lymphocytes Absolute Auto 1.01 K/mm3 (0.9-3.2); Mean Corpuscular HGB Conc 31.0 g/dl (32-36); Mean Corpuscular Hemoglobin 27.0 pg (26-34); Mean Corpuscular Volume 87.0 fl (80-100); Nucleated Red Blood Cells Absolute Auto 0.000 K/mm3 (0.0-0.012); Nucleated Red Blood Cells Perc 0.0 % (0.0-0.2); Platelet Count Result 320 k/mm3 (150-375); Red Blood Count 3.15 M/mm3 (4.2-5.4); White Blood Count 9.2 K/mm3 (4.5-10.0)
--- NOTE | 2025-05-01 00:12 | ED.SOB ---
HPI - SOB/Dyspnea General Chief Complaint: Shortness of Breath/Dyspnea <Nicole Gao PA-C - Last Filed: 05/01/25 03:07> Stated Complaint: can't breathe <Nicole Gao PA-C - Last Filed: 05/01/25 03:07> Time Seen by Provider: 05/01/25 00:02 <Nicole Gao PA-C - Last Filed: 05/01/25 03:07> History of Present Illness HPI Narrative: 79-year-old female with history of CKD stage 5 and hypertension presents to the emergency department with at bedside for shortness of breath for the past several weeks. Patient states she went to her PCP's office this morning, Dr. Dey, who ordered a CXR which showed interval development of large left-sided pleural effusion?. Patient states she was contacted by her PCP to give her the option to either come to the emergency department to have a thoracentesis or attempt to schedule an outpatient thoracentesis. Patient requested to come to the emergency department. She reports dyspnea that is worse with exertion and when lying flat. She denies cough, congestion, chest pain, hemoptysis, fever. She does endorse chronic lower extremity edema and believes it is worse than her baseline. She has known stage 5 CKD and follows with Dr. Vargas. She is not on dialysis. She denies history of CHF. She still makes urine. Pt states she has been smoking 1/2 ppd for about 40 years. <Nicole Gao PA-C - Last Filed: 05/01/25 03:07> Related Data Home Medications: Home Medications ?Medication ?Instructions ?Recorded ?Confirmed ?Last Taken ?Type aspirin 81 mg tablet,delayed 81 mg PO DAILY 02/21/23 02/19/25 02/12/24 History release (Adult Aspirin Regimen) calcium 600 mg (as 1 tablet PO BID 02/21/23 02/19/25 02/12/24 History carbonate)-vitamin D3 10 mcg (400 unit) tablet diltiazem HCl 240 mg 240 mg PO DAILY 02/21/23 02/19/25 02/12/24 History capsule,extended release 24 hr gabapentin 300 mg capsule 300 mg PO BID 02/21/23 02/19/25 02/12/24 History lovastatin 40 mg tablet 40 mg PO DAILY 02/21/23 02/19/25 02/12/24 History mecobalamin (vitamin B12) 1,000 1,000 mcg PO DAILY 02/21/23 02/19/25 02/12/24 History mcg chewable tablet sertraline 100 mg tablet 100 mg PO DAILY 02/21/23 02/19/25 02/12/24 History cholecalciferol (vitamin D3) 50 50 mcg PO DAILY 02/19/25 02/19/25 Unknown History mcg (2,000 unit) capsule <Nicole Gao PA-C - Last Filed: 05/01/25 03:07> Allergies/Adverse Reactions: Allergies Allergy/AdvReac Type Severity Reaction Status Date / Time No Known Allergies Allergy Verified 04/30/25 23:45 <Nicole Gao PA-C - Last Filed: 05/01/25 03:07> Review of Systems Review of Systems: All systems reviewed & are unremarkable except as noted in HPI and below <Nicole Gao PA-C - Last Filed: 05/01/25 03:07> [facility] Past Medical History Medical History: Medical History Lymphocytic colitis Tobacco use Positive P-ANCA titer Diarrhea Depression CKD (chronic kidney disease) Shortness of breath Arthritis Cellulitis High cholesterol Hypertension Dizziness Vision abnormalities Arterial vascular disease Peroneal tendinitis of left lower leg <Nicole Gao PA-C - Last Filed: 05/01/25 03:07> Family History Family History: Family History Other Hypertension Malignant neoplasm <Nicole Gao PA-C - Last Filed: 05/01/25 03:07> Social History Social History: Social History Smoking packs per day: 0.5 Smoking cigarettes per day: 10.0 Years smoked: 50 Smoking pack-years: 25.00 Smoking status: Current every day smoker Tobacco type: cigarettes Alcohol intake: never Substance use: never Substance use type: does not use Do You Feel Safe in your Home?: Yes Lack of Transportation: No Lack of Food: Never True Current Housing: I Have Housing Concerned About Future Housing: No Difficulty Paying Gas/Electric Bills: No Difficulty Paying for Meds: No Currently Unemployed: No Education: High School Diploma/GED Difficulty w/ Childcare or Family Care: No Living arrangements: with family Gender identity (if verbalized by the patient): Female Sexual Orientation (if Verbalized by the Patient): Straight or Heterosexual Spiritual care concerns: No <Nicole Gao PA-C - Last Filed: 05/01/25 03:07> Exam Narrative: GENERAL: Well-appearing, well-nourished, and in no acute distress. HEAD: Normocephalic, atraumatic. EYES: PERRLA and EOMI. ENT: Nares clear, no rhinorrhea or epistaxis. Mucous membranes moist. NECK: Supple. CHEST: Decreased lung sounds in the left lung field. Speaking in full sentences. No respiratory distress HEART: Regular rate and rhythm. No murmur heard. Normal peripheral pulses. ABDOMEN: Soft, nontender, nondistended, normal active bowel sounds. EXTREMITIES: Normal range of motion. Pitting edema to bilateral lower extremities SKIN: Warm, dry, no rash. NEURO: No focal deficits. Alert and oriented x3 <Nicole Gao PA-C - Last Filed: 05/01/25 03:07> Course ANESTHESIOLOGY RESIDENT/PA Physician Supervision I am made aware by the PA that this patient is being admitted for new onset pleural effusion. PA had confirmed that there is an shrimp trawler captain on schedule for later today to perform thoracentesis. She places thoracentesis orders and I placed associated studies that we needed for the diagnostic portion of this tap which will also be therapeutic. Was available for consultation while patient was in the emergency otherwise did physically examine her. <Julee Luo MD - Last Filed: 05/01/25 03:46> Vital Signs Vital signs: Vital Signs Temperature 97.7 F 05/01/25 01:43 Pulse Rate 80 05/01/25 01:43 Respiratory Rate 18 05/01/25 01:43 Blood Pressure 167/73 H 05/01/25 01:43 Pulse Oximetry 96 05/01/25 01:43 Temperature 97.7 F 05/01/25 01:43 Pulse Rate 80 05/01/25 01:43 Respiratory Rate 18 05/01/25 01:43 Blood Pressure 167/73 H 05/01/25 01:43 Pulse Oximetry 96 05/01/25 01:43 <Nicole Gao PA-C - Last Filed: 05/01/25 03:07> Vital Signs Temperature 97.7 F 05/01/25 01:43 Pulse Rate 80 05/01/25 01:43 Respiratory Rate 18 05/01/25 01:43 Blood Pressure 167/73 H 05/01/25 01:43 Pulse Oximetry 96 05/01/25 01:43 Temperature 97.7 F 05/01/25 01:43 Pulse Rate 80 05/01/25 01:43 Respiratory Rate 18 05/01/25 01:43 Blood Pressure 167/73 H 05/01/25 01:43 Pulse Oximetry 96 05/01/25 01:43 <Julee Luo MD - Last Filed: 05/01/25 03:46> MDM - SOB/Dyspnea MDM Narrative Medical decision making narrative: 79-year-old female with history of CKD stage 5 not on dialysis presents emergency department for shortness of breath over the past few weeks. Had an outpatient chest x-ray ordered by her PCP today which showed interval development of large left-sided pleural effusion. Patient presented to the ED for further evaluation. On arrival to the ED patient's vital signs with elevated blood pressure 167/73, otherwise unremarkable. Patient is satting 96% on room air in no distress. Exam is significant for the above. CBC without leukocytosis. Hemoglobin is 8.5 which is consistent with most recent hemoglobin in February of 8.8, likely due to chronic kidney disease. Chemistries with a bicarb of 18 and normal anion gap. Creatinine is 4.88 with a BUN of 44. Most recent labs in beginning of April showed a creatinine of 4.2, february showed a creatinine of 3 consistent with progression in renal failure. Her proBNP is elevated 2110. Magnesium is normal at 2.2 and potassium is normal at 4.2. EKG shows normal sinus rhythm with a rate of 79 ppm, normal ID interval, normal QRS duration, normal QTC, no ST elevations or depressions. Troponin is undetectable. UA indicative of urinary tract infection with 51-100 white blood cells and 1+ leuk esterase. Urine culture pending. Patient started on Rocephin. D-dimer is elevated to 2.64. Unfortunately patient cannot obtain a CTA given estimated GFR of 9. Patient and family at bedside were updated on results. Suspect symptoms are due to new onset CHF verses worsening CKD. Patient was given 40 mg of Lasix as she is still making urine. Plan admit to the hospitalist for further evaluation and management as well as obtaining V/Q scan in the morning. Discussed case with hospitalist, Dr. Callahan, who agrees to admission. We did discuss possibility of anticoagulated patient given elevated D-dimer, however Dr. Callahan advises to hold anticoagulants at this time given we have a source for patient's sx and will wait for V/Q scan in the morning. I did confirm that we have IR available tomorrow for thoracentesis. <Nicole Gao PA-C - Last Filed: 05/01/25 03:07> Lab Data Result diagrams: 05/01/25 00:05 05/01/25 00:05 <Nicole Gao PA-C - Last Filed: 05/01/25 03:07> Labs: Lab Results 05/01/25 05/01/25 05/01/25 Range/Units 00:04 00:05 01:36 WBC 9.2 (4.5-10.0) K/mm3 RBC 3.15 L (4.2-5.4) M/mm3 Hgb 8.5 L (12.0-15.0) g/dL Hct 27.4 L (37.0-47.0) % MCV 87.0 (80-100) fl MCH 27.0 (26-34) pg MCHC 31.0 L (32-36) g/dl RDW 14.6 H (11.5-14.5) % Plt Count 320 (150-375) k/mm3 MPV 10.3 (7.4-10.4) fl Immature Gran % (Auto) 0.7 H (0-0.5) % Neut % (Auto) 76.4 H (45.5-73.1) % Lymph % (Auto) 11.0 L (18.3-44.2) % [place] % (Auto) 8.1 (2.6-8.5) % Eos % (Auto) 3.3 (0-4.4) % Baso % (Auto) 0.5 (0.2-1.2) % Lymph # (Auto) 1.01 (0.9-3.2) K/mm3 [place] # (Auto) 0.7 H (0.1-0.6) K/mm3 Eos # (Auto) 0.3 (0-0.3) K/mm3 Baso # (Auto) 0.1 (0.0-0.1) K/mm3 Abs Immat Gran (auto) 0.06 H (0.00-0.031) K/mm3 Absolute Neuts (auto) 7.0 H (1.3-6.7) K/mm3 Absolute Nucleated RBC 0.000 (0.0-0.012) K/mm3 Nucleated RBC % 0.0 (0.0-0.2) % PT 15.5 H (11.1-14.7) Seconds INR 1.2 APTT 32.2 (22.3-36.8) Seconds D-Dimer 2.64 H (<0.48) ug/mL Sodium 141 (137-145) mmol/L Potassium 4.2 (3.4-5.0) mmol/L Chloride 113 H (98-107) mmol/L Carbon Dioxide 18 L (22-30) mmol/L Anion Gap 10 (4-12) mmol/L BUN 44 H (7-17) mg/dL Creatinine 4.88 H (0.7-1.0) mg/dL Estim Creat Clear Calc Not Reportable Estimated GFR 9 L (59 - ) Glucose 130 H (65-110) mg/dL Calcium 9.2 (8.4-10.2) mg/dL Magnesium 2.2 (1.6-2.3) mg/dL Total Bilirubin 0.2 (0.2-1.3) mg/dL AST 20 (14-36) U/L ALT 14 (6-35) U/L Alkaline Phosphatase 135 H (38-126) U/L Troponin I < 0.012 (0.000-0.034) ng/mL NT-Pro-B Natriuret Pep 2110 H (19.9-100) pg/mL Total Protein 6.7 (6.3-8.2) g/dL Albumin 3.6 (3.5-5.1) g/dL Urine Color Yellow (Yellow) Urine Appearance Cloudy H (Clear) Urine pH 5.5 (5.0-9.0) Ur Specific [place] 1.019 (1.001-1.035) Urine Protein 4+ H (Negative) mg/dL Urine Glucose (UA) Trace H (Negative) mg/dL Urine Ketones Negative (Negative) mg/dL Ur Blood (Man) Negative (Negative) Urine Nitrate Negative (Negative) Urine Bilirubin Negative (Negative) Urine Urobilinogen 0.2 (<2.0) mg/dL Add Ur Microanalysis Reviewed Leukocyte Esterase Rfl 1+ H (Negative) KAYDEN/UL Urine RBC 0-2 (0-2) /hpf Urine WBC 51-100 H (0-3) /hpf Ur Squamous Epith Cells Occasional (Few) /hpf Urine Bacteria None seen /hpf Urine Casts 11-20 Hyaline Casts Present (None) /lpf Urine Mucus Present /lpf <Nicole Gao PA-C - Last Filed: 05/01/25 03:07> Lab Results 05/01/25 05/01/25 05/01/25 Range/Units 00:04 00:05 01:36 WBC 9.2 (4.5-10.0) K/mm3 RBC 3.15 L (4.2-5.4) M/mm3 Hgb 8.5 L (12.0-15.0) g/dL Hct 27.4 L (37.0-47.0) % MCV 87.0 (80-100) fl MCH 27.0 (26-34) pg MCHC 31.0 L (32-36) g/dl RDW 14.6 H (11.5-14.5) % Plt Count 320 (150-375) k/mm3 MPV 10.3 (7.4-10.4) fl Immature Gran % (Auto) 0.7 H (0-0.5) % Neut % (Auto) 76.4 H (45.5-73.1) % Lymph % (Auto) 11.0 L (18.3-44.2) % [place] % (Auto) 8.1 (2.6-8.5) % Eos % (Auto) 3.3 (0-4.4) % Baso % (Auto) 0.5 (0.2-1.2) % Lymph # (Auto) 1.01 (0.9-3.2) K/mm3 [place] # (Auto) 0.7 H (0.1-0.6) K/mm3 Eos # (Auto) 0.3 (0-0.3) K/mm3 Baso # (Auto) 0.1 (0.0-0.1) K/mm3 Abs Immat Gran (auto) 0.06 H (0.00-0.031) K/mm3 Absolute Neuts (auto) 7.0 H (1.3-6.7) K/mm3 Absolute Nucleated RBC 0.000 (0.0-0.012) K/mm3 Nucleated RBC % 0.0 (0.0-0.2) % PT 15.5 H (11.1-14.7) Seconds INR 1.2 APTT 32.2 (22.3-36.8) Seconds D-Dimer 2.64 H (<0.48) ug/mL Sodium 141 (137-145) mmol/L Potassium 4.2 (3.4-5.0) mmol/L Chloride 113 H (98-107) mmol/L Carbon Dioxide 18 L (22-30) mmol/L Anion Gap 10 (4-12) mmol/L BUN 44 H (7-17) mg/dL Creatinine 4.88 H (0.7-1.0) mg/dL Estim Creat Clear Calc Not Reportable Estimated GFR 9 L (59 - ) Glucose 130 H (65-110) mg/dL Calcium 9.2 (8.4-10.2) mg/dL Magnesium 2.2 (1.6-2.3) mg/dL Total Bilirubin 0.2 (0.2-1.3) mg/dL AST 20 (14-36) U/L ALT 14 (6-35) U/L Alkaline Phosphatase 135 H (38-126) U/L Troponin I < 0.012 (0.000-0.034) ng/mL NT-Pro-B Natriuret Pep 2110 H (19.9-100) pg/mL Total Protein 6.7 (6.3-8.2) g/dL Albumin 3.6 (3.5-5.1) g/dL Urine Color Yellow (Yellow) Urine Appearance Cloudy H (Clear) Urine pH 5.5 (5.0-9.0) Ur Specific [place] 1.019 (1.001-1.035) Urine Protein 4+ H (Negative) mg/dL Urine Glucose (UA) Trace H (Negative) mg/dL Urine Ketones Negative (Negative) mg/dL Ur Blood (Man) Negative (Negative) Urine Nitrate Negative (Negative) Urine Bilirubin Negative (Negative) Urine Urobilinogen 0.2 (<2.0) mg/dL Add Ur Microanalysis Reviewed Leukocyte Esterase Rfl 1+ H (Negative) KAYDEN/UL Urine RBC 0-2 (0-2) /hpf Urine WBC 51-100 H (0-3) /hpf Ur Squamous Epith Cells Occasional (Few) /hpf Urine Bacteria None seen /hpf Urine Casts 11-20 Hyaline Casts Present (None) /lpf Urine Mucus Present /lpf <Julee Luo MD - Last Filed: 05/01/25 03:46> Discharge Plan Discharge Clinical Impression: Pleural effusion, D-dimer, elevated CKD (chronic kidney disease) Qualifiers: Chronic kidney disease stage: stage 5 (GFR < 15), not on chronic dialysis Qualified Code(s): N18.5 - Chronic kidney disease, stage 5 UTI (urinary tract infection) Qualifiers: Urinary tract infection type: acute cystitis Hematuria presence: without hematuria Qualified Code(s): N30.00 - Acute cystitis without hematuria <Nicole Gao PA-C - Last Filed: 05/01/25 03:07> Patient Disposition: Still a Patient <Nicole Gao PA-C - Last Filed: 05/01/25 03:07> Condition: Stable <Nicole Gao PA-C - Last Filed: 05/01/25 03:07> Patient Language: Norwegian <Nicole Gao PA-C - Last Filed: 05/01/25 03:07> Prescriptions: No Action lovastatin 40 mg tablet 40 mg PO DAILY aspirin [Adult Aspirin Regimen] 81 mg tablet,delayed release (DR/EC) 81 mg PO DAILY sertraline 100 mg tablet 100 mg PO DAILY calcium carbonate-vitamin D3 600 mg-10 mcg (400 unit) tablet 1 tablet PO BID gabapentin 300 mg capsule 300 mg PO BID mecobalamin (vitamin B12) 1,000 mcg tablet,chewable 1,000 mcg PO DAILY diltiazem HCl 240 mg capsule,extended release 24hr 240 mg PO DAILY cholecalciferol (vitamin D3) 50 mcg (2,000 unit) capsule 50 mcg PO DAILY hydralazine 25 mg tablet See Rx Instructions .ROUTE .COMPLEX Qty: 180 3RF Dose Instruction: TAKE 1 TABLET BY MOUTH TWICE A DAY Rx Instructions: TAKE 1 TABLET BY MOUTH TWICE A DAY <Nicole Gao PA-C - Last Filed: 05/01/25 03:07> Follow-up/Referrals: Nicolás Dey MD [Primary Care Provider] - <Nicole Gao PA-C - Last Filed: 05/01/25 03:07>
--- OUTSIDE RECORDS SUMMARY | 2025-05-01 00:20 | XMS_ITS | Clinical Summary ---
Author Organization [facility] Address [address] [place] [address] Phone Care Team Providers Care Foundry Metallurgist Name Role Phone Nicolás Dey MD Primary Care Provider [phone] Allergies No known active allergies Medications calcium [...] on file Legal Sex Female 7:47 AM [facility] Gender Identity Not on file Sexual Orientation [...] 2025 09/11/2016 Insurance CIGNA MEDICARE Care Teams Foundry Metallurgist Relationship Specialty Start Date End Date Nicolás Dey MD [address] [place] [address] [place] [address] PCP - General Internal Medicine 04/01/19
--- OUTSIDE RECORDS SUMMARY | 2025-05-01 00:20 | XMS_ITS | Patient Health Record ---
Author Organization [facility] Address [address] [facility] [address] [facility] [address] [place] [address] Care Team Providers Care Highway Truck Driver Name Role Phone JENI LOPEZ Unavailable [phone] Reason For Referral No Information Plan Of Treatment No Information Insurance Providers Payer Name Payer Address Payer Phone Subscriber Number Group Number Insured Name Patient Relationship to Insured Coverage Start Date Coverage End Date [place] [address] [address] [place], [place] [id number] AditiAugusten Self - patient is the insured 9 MEDICARE [place] [address] [place], [place] [id number] Aditi Juliana Self - patient is the insured 9 [facility] FIN[facility]CIAL [facility] [place] [address] [id number] PLAN F AditiAugusten Self - patient is the insured 9
--- OUTSIDE RECORDS SUMMARY | 2025-05-01 00:20 | XMS_ITS | Clinical Summary ---
Author Organization [facility] Address [address] [place] [address] Care Team Providers Care It Field Technician Name Role Phone Nicolás Dey MD Primary Care Provider [phone] Allergies No known active allergies Medications [facility] [...] (06/26/2023): Added automatically from request for surgery [id number] Ankle instability, left 08/22/2022 Neuropathy of left [...] AM CDT Legal Sex Female 6:01 PM PAINTER Gender Identity Not on file Sexual Orientation [...] 76.7 kg (169 lb) 08/14/2023 8:57 AM PAINTER Height 170.2 cm (5' 7) 08/14/2023 8:57 AM PAINTER Body Mass Index 26.47 08/14/2023 8:57 AM PAINTER Plan of Treatment Health Maintenance Due Date [...] this topic Medical Devices Implanted Type Area Nylon Hot Wire Cutter Device Identifier Shelf Expiration Date Model / Serial / Lot Screw Bone 8mm 50mm 25mm Asnis Iii Titanium Orthopedic Self Tapping Self Drilling Cannulated - [id number] Implanted:Qty: 2 on 10/10/2022 by Walter Rawls MD at [facility] Screw Left: Ankle [employer] - DIV TEMI MARLEN [id number] / / Pain Stimulator Description:PAIN STIMULATOR IN LOWER BACK ON THE LEFT SIDE 3.2 Guide Pin Implanted:Qty: 2 on 10/10/2022 by Walter Rawls MD at [facility] Left: Ankle [id number] / / Washer 8.0 Implanted:Qty: 2 on 10/10/2022 by Walter Rawls MD at [facility] Left: Ankle [id number] / / 8.0x120 Cannulated Screw Implanted:Qty: 2 on 10/10/2022 by Walter Rawls MD at [facility] Left: Ankle [id number] / / Explanted Type Area Nylon Hot Wire Cutter Device Identifier Shelf Expiration Date Model / Serial / Lot Guide Wire, Smooth Explanted:Qty: 1 on 07/24/2023 by Walter Rawls MD at [facility] Left: Ankle [employer] - DIV TEMI MARLEN [id number] / / Insurance MEDICARE MEDICARE LIFE INSURANCE Care Teams It Field Technician Relationship Specialty Start Date End Date Nicolás Dey MD [address] [place], [place] [id number] PCP - General FAMILY PRACTICE 10/10/19
[2025-05-01 00:21] LABS: Alanine Aminotransferase 14 U/L (6-35); Albumin Level 3.6 g/dL (3.5-5.1); Alkaline Phosphatase 135 U/L (38-126); Anion Gap 10 mmol/L (4-12); Aspartate Amino Transferase 20 U/L (14-36); Bilirubin,Total 0.2 mg/dL (0.2-1.3); Blood Urea Nitrogen 44 mg/dL (7-17); Calcium 9.2 mg/dL (8.4-10.2); Carbon Dioxide 18 mmol/L (22-30); Chloride 113 mmol/L (98-107); Estimated Glomerular Filt Rate 9; Glucose 130 mg/dL (65-110); Potassium 4.2 mmol/L (3.4-5.0); Sodium 141 mmol/L (137-145); Total Protein 6.7 g/dL (6.3-8.2)
[2025-05-01 00:33] LABS: Troponin I < 0.012 ng/mL (0.000-0.034)
[2025-05-01 00:47] LABS: INR 1.2; Prothrombin Time 15.5 Seconds (11.1-14.7)
[2025-05-01 00:48] LABS: Partial Thromboplastin Time 32.2 Seconds (22.3-36.8)
[2025-05-01 01:05] LABS: Magnesium 2.2 mg/dL (1.6-2.3)
[2025-05-01 01:10] LABS: NT Pro B Type Natriuretic Pept 2110 pg/mL (19.9-100)
[2025-05-01] MEDS: FUROSEMIDE INJ 40 MG/4 ML VIAL IV PUSH ×2 (01:41→14:43)
[2025-05-01 01:54] LABS: Add Urine Microscopic? YES; Appearance Urine Cloudy (Clear); Glucose Urine UA Trace mg/dL (Negative); Leukocyte Esterase Ur 1+ LEU/UL (Negative); Need Manual Microscopic Reviewed; Nitrate Urine Negative (Negative); Specific Grav Ur 1.019 (1.001-1.035)
--- NOTE | 2025-05-01 03:06 | CY_PTH ---
PATIENT: Juliana Pennington LOC: [id number] #:[id number] AGE/SX: 79/F ROOM: 310 RE05/01/[address]: Kelsey Kelly PA-C : 1945 BED: 01 DIS: 05/04/2025 SPEC #: [id number] RECD: 05/01/25 12:25 STATUS: AKIKO REDeneen #: [id number] EDY: 05/01/25 03:[address]: Julee Luo DEPT: [facility] Cytology RECD BY: Akila Jacobo ENTERED: 05/01/25 12:26 SP TYPE: Cytology OTHR DR: MD Kelsey Quintanilla PA-C Henry E. Purcell, MD Bryan C. Siegfried, MD Tissues: A - Pleural Fluid Procedures: Hematoxylin and Eosin Stain Cell Block [id number] Calretinin Cytopathology Cytospin
[2025-05-01] MEDS: cefTRIAXone 1 GM in SODIUM CHLORIDE 0.9% IV 50 ML 100 ML IVPB (04:27)
[2025-05-01 04:51] LABS: INR 1.2; Prothrombin Time 15.1 Seconds (11.1-14.7)
[2025-05-01 04:52] LABS: Partial Thromboplastin Time 31.3 Seconds (22.3-36.8)
--- OUTSIDE RECORDS SUMMARY | 2025-05-01 05:25 | XMS_ITS | Clinical Summary ---
Author Organization [facility] Address [address] [place] [address] Phone Care Team Providers Care Public Stenographer Name Role Phone Nicolás Dey MD Primary Care Provider [phone] Allergies No known active allergies Medications calcium [...] on file Legal Sex Female 7:47 AM [facility] Gender Identity Not on file [...] 2025 09/11/2016 Insurance CIGNA MEDICARE Care Teams Public Stenographer Relationship Specialty Start Date End Date Nicolás Dey MD [address] [place] [address] [place] [address] PCP - General Internal Medicine 04/01/19
--- OUTSIDE RECORDS SUMMARY | 2025-05-01 05:25 | XMS_ITS | Clinical Summary ---
Author Organization [facility] Address [address] [place] [address] Care Team Providers Care Soda Fountain Clerk Name Role Phone Nicolás Dey MD Primary Care Provider [phone] Allergies No known active allergies Medications [facility] [...] (06/26/2023): Added automatically from request for surgery [id number] Ankle instability, left 08/22/2022 Neuropathy of left [...] AM CDT Legal Sex Female 6:01 PM LIFE SCIENCES TEACHER Gender Identity Not on file Sexual Orientation [...] 76.7 kg (169 lb) 08/14/2023 8:57 AM LIFE SCIENCES TEACHER Height 170.2 cm (5' 7) 08/14/2023 8:57 AM LIFE SCIENCES TEACHER Body Mass Index 26.47 08/14/2023 8:57 AM LIFE SCIENCES TEACHER Plan of Treatment Health Maintenance Due Date [...] this topic Medical Devices Implanted Type Area Bulldogger Device Identifier Shelf Expiration Date Model / Serial / Lot Screw Bone 8mm 50mm 25mm Asnis Iii Titanium Orthopedic Self Tapping Self Drilling Cannulated - [id number] Implanted:Qty: 2 on 10/10/2022 by Walter Rawls MD at [facility] Screw Left: Ankle [employer] - DIV TEMI MARLEN [id number] / / Pain Stimulator Description:PAIN STIMULATOR IN LOWER BACK ON THE LEFT SIDE 3.2 Guide Pin Implanted:Qty: 2 on 10/10/2022 by Walter Rawls MD at [facility] Left: Ankle [id number] / / Washer 8.0 Implanted:Qty: 2 on 10/10/2022 by Walter Rawls MD at [facility] Left: Ankle [id number] / / 8.0x120 Cannulated Screw Implanted:Qty: 2 on 10/10/2022 by Walter Rawls MD at [facility] Left: Ankle [id number] / / Explanted Type Area Bulldogger Device Identifier Shelf Expiration Date Model / Serial / Lot Guide Wire, Smooth Explanted:Qty: 1 on 07/24/2023 by Walter Rawls MD at [facility] Left: Ankle [employer] - DIV [employer] MARLEN [id number] / / Insurance MEDICARE MEDICARE LIFE INSURANCE Care Teams Soda Fountain Clerk Relationship Specialty Start Date End Date Nicolás Dey MD [address] [place], [place] [id number] PCP - General FAMILY PRACTICE 10/10/19
--- NOTE | 2025-05-01 06:06 | ADMGEN ---
This patient, Juliana Pennington, was admitted to [facility] Surg Room 310-01. Patient/family oriented to hospital policies and general routines including ID bracelet, bed and alarms, visiting hours, pain management, procedures, bathroom and other care routines, personal items, smoking policy, room service/diet, and visiting hours. Information on how to activate the Rapid Response Team has been discussed. Patient/Family are encouraged to report perceived risks to care and to ask questions if they do not understand what they are told or what they should do.
[2025-05-01 06:38] LABS: Hematocrit 25.3 % (37.0-47.0); Hemoglobin 7.8 g/dL (12.0-15.0); Immature Granulocyte Percent A 0.9 % (0-0.5); Lymphocytes Absolute Auto 0.91 K/mm3 (0.9-3.2); Mean Corpuscular HGB Conc 30.8 g/dl (32-36); Mean Corpuscular Hemoglobin 27.4 pg (26-34); Mean Corpuscular Volume 88.8 fl (80-100); Nucleated Red Blood Cells Absolute Auto 0.000 K/mm3 (0.0-0.012); Nucleated Red Blood Cells Perc 0.0 % (0.0-0.2); Platelet Count Result 276 k/mm3 (150-375); Red Blood Count 2.85 M/mm3 (4.2-5.4); White Blood Count 8.1 K/mm3 (4.5-10.0)
--- NOTE | 2025-05-01 07:02 | P.HP_ITS ---
H&P: HPI History of Present Illness Date/Time: 05/01/25 07:02 Chief Complaint: shortness of breath Narrative: 79 year old female with past medical history of lymphocytic colitis, arterial vascular disease, arthritis, chronic kidney disease, depression, high cholesterol, and hypertension presents to the hospital for shortness of breath that has been ongoing for several weeks. She states that starting early this week she was having difficulties lying down and ambulating as this would further exacerbate the shortness of breath. She also notes that she has had bilateral lower extremity swelling since prior to the shortness of breath, worse on the left than the right and extending to her knees. She denies any associated weeping, redness or pain. She denies any associated chest pain, palpitations, cough, fever or being around anyone that has been sick. Patient denies a history of heart failure. Patient was noted to be anemic on the labs. She denies any blood in her stool, dark tarry stools, or blood in her urine. Patient endorses feeling as though her ears are plugged. She states that when she was seen by her PCP prior to coming to the hospital she was diagnosed with an ear infection and placed on amoxicillin. She denies any ear pain or drainage. Discussed code status with patient and she wishes to be DNR at this time. Update made to the chart. ED workup: CBC with WBC 8.1, H/H 7.8/25.3, and PLT 276. PT/INR 12.1/1.2. CMP with Na 141, K 4, Bicarb 16, BUN/Cr 44/4.8 with GFR 9. Calcium 8.9. Mag 2.2. LFTs WNL. UA with cloudy appearance, 4+ protein, trace glucose, negative nitrates, 1+ leukocytes, 51-100 WBC, no bacteria, occasional squamous. Chest XR showed interval development of a large left sided pleural effusion. Review of Systems Review of Systems: All systems reviewed & are unremarkable except as noted in HPI and below [facility] Past Medical History Medical History Lymphocytic colitis Tobacco use Positive P-ANCA titer Diarrhea Depression CKD (chronic kidney disease) Shortness of breath Arthritis Cellulitis High cholesterol Hypertension Dizziness Vision abnormalities Arterial vascular disease Peroneal tendinitis of left lower leg Surgical History Surgical History (Updated 05/01/25 @ 14:06 by Kelesy Kelly PA-C) Status post left foot surgery Family History Family History Other Hypertension Malignant neoplasm Social History Social History (Updated 05/01/25 @ 14:06 by Kelsey Kelly PA-C) Social History: Lives at home with . Has a cat and a dog. Smoking packs per day: 0.5 Smoking cigarettes per day: 10.0 Years smoked: 50 Smoking pack-years: 25.00 Smoking status: Current every day smoker Tobacco type: cigarettes Alcohol intake: never Substance use: never Substance use type: does not use Do You Feel Safe in your Home?: Yes Lack of Transportation: No Lack of Food: Never True Current Housing: I Have Housing Concerned About Future Housing: No Difficulty Paying Gas/Electric Bills: No Difficulty Paying for Meds: No Currently Unemployed: No Education: High School Diploma/GED Difficulty w/ Childcare or Family Care: No Living arrangements: with family Gender identity (if verbalized by the patient): Female Sexual Orientation (if Verbalized by the Patient): Straight or Heterosexual Spiritual care concerns: No Meds Home Medications and Allergies Home Medications ?Medication ?Instructions ?Recorded ?Confirmed ?Type aspirin 81 mg tablet,delayed 81 mg PO DAILY 02/21/23 05/01/25 History release (Adult Aspirin Regimen) calcium 600 mg (as 1 tablet PO BID 02/21/23 05/01/25 History carbonate)-vitamin D3 10 mcg (400 unit) tablet diltiazem HCl 240 mg 240 mg PO DAILY 02/21/23 05/01/25 History capsule,extended release 24 hr gabapentin 300 mg capsule 300 mg PO BID 02/21/23 05/01/25 History lovastatin 40 mg tablet 40 mg PO DAILY 02/21/23 05/01/25 History mecobalamin (vitamin B12) 1,000 1,000 mcg PO DAILY 02/21/23 05/01/25 History mcg chewable tablet sertraline 100 mg tablet 100 mg PO DAILY 02/21/23 05/01/25 History cholecalciferol (vitamin D3) 50 50 mcg PO DAILY 02/19/25 05/01/25 History mcg (2,000 unit) capsule hydralazine 25 mg tablet See Rx Instructions .Route 04/22/25 05/01/25 Rx .COMPLEX #180 tabs amoxicillin 250 mg capsule 250 mg PO Q12H 05/01/25 05/01/25 History ketorolac 0.4 % eye drops 1 drp RIGHT EYE TID 05/01/25 05/01/25 History loperamide 2 mg capsule 2 mg PO DAILY PRN loose stool 05/01/25 05/01/25 History (Anti-Diarrheal (loperamide)) prednisolone acetate 1 % eye 1 drp RIGHT EYE Q8H 05/01/25 05/01/25 History drops,suspension Allergies Allergy/AdvReac Type Severity Reaction Status Date / Time No Known Allergies Allergy Verified 05/01/25 06:53 Vital Signs Vital Signs - 24 hr 04/30/25 23:51 04/30/25 23:53 05/01/25 00:00 Temperature Pulse Rate Respiratory Rate Blood Pressure 171/71 H Pulse Oximetry 90 98 97 05/01/25 00:15 05/01/25 00:30 05/01/25 00:45 Temperature Pulse Rate Respiratory Rate Blood Pressure Pulse Oximetry 95 95 93 05/01/25 01:00 05/01/25 01:16 05/01/25 01:36 Temperature Pulse Rate Respiratory Rate Blood Pressure Pulse Oximetry 94 94 92 05/01/25 01:41 05/01/25 01:43 05/01/25 03:02 Temperature 97.7 F Pulse Rate 80 Respiratory Rate 18 Blood Pressure 167/73 H 167/73 H 163/86 H Pulse Oximetry 97 96 96 05/01/25 03:22 05/01/25 03:32 05/01/25 03:45 Temperature Pulse Rate Respiratory Rate Blood Pressure 164/73 H 172/68 H Pulse Oximetry 96 94 95 05/01/25 04:00 05/01/25 04:40 05/01/25 06:00 Temperature 97.8 F 97.1 F L Pulse Rate 81 80 81 Respiratory Rate 18 18 19 Blood Pressure 161/73 H 161/61 H Pulse Oximetry 96 99 99 Exam Narrative: AF HR 81 RR 19 Spo2 99 BP 161/61 General: female in no acute respiratory distress who is nontoxic appearing, lying semi recumbent in bed. HEENT: Normocephalic. Atraumatic. Extraocular movement intact. Sclera clear and anicteric. No facial asymmetry. Neck: Neck was supple. No dominant adenopathy, thyromegaly or masses. Chest: Lungs are clear to the upper lobes bilaterally with slight diminishment in the right lower base and coarseness throughout the left lung to auscultation. CV: Heart was regular rate and rhythm. Abd: Abdomen was soft. Nontender. Nondistended. Positive bowel sounds. Ext: No clubbing, cyanosis. DP pulses bilaterally. 2+ pitting edema extending to the knees bilaterally, worse on L>R. No redness or pain. Neuro: Patient is alert and oriented x4. Strength is 5/5 in both upper and lower extremities. Speech is clear. Psych: Normal mood and affect. Patient is pleasant and cooperative. Skin: Warm and dry. No rashes noted. H&P: Results Labs Labs: Short CBC 05/01/25 05/01/25 Range/Units 00:05 06:20 WBC 9.2 8.1 (4.5-10.0) K/mm3 Hgb 8.5 L 7.8 L (12.0-15.0) g/dL Hct 27.4 L 25.3 L (37.0-47.0) % Plt Count 320 276 (150-375) k/mm3 BMP 05/01/25 00:05 Sodium 141 Potassium 4.2 Chloride 113 H Carbon Dioxide 18 L BUN 44 H Creatinine 4.88 H Glucose 130 H Calcium 9.2 Cardiac Enzymes 05/01/25 Range/Units 00:05 Troponin I < 0.012 (0.000-0.034) ng/mL Liver Function 05/01/25 Range/Units 00:05 Total Bilirubin 0.2 (0.2-1.3) mg/dL AST 20 (14-36) U/L ALT 14 (6-35) U/L Alkaline Phosphatase 135 H (38-126) U/L Albumin 3.6 (3.5-5.1) g/dL Urine 05/01/25 Range/Units 01:36 Urine Color Yellow (Yellow) Urine Appearance Cloudy H (Clear) Urine pH 5.5 (5.0-9.0) Ur Specific [place] 1.019 (1.001-1.035) Urine Protein 4+ H (Negative) mg/dL Urine Glucose (UA) Trace H (Negative) mg/dL Impressions Chest X-Ray 05/01/25 10:42 Impression: 1: Moderate left pleural effusion. No pneumothorax identified post procedure. Thoracentesis Ultrasound 05/01/25 12:50 IMPRESSION: 1. Successful ultrasound-guided thoracentesis yielding 700 mL of thin yellow fluid. Assessment and Plan Assessment and plan (1) Pleural effusion: Code(s): J90 - Pleural effusion, not elsewhere classified Status: Acute Assessment and Plan: Symptoms: orthopnea and BLE edema extending to knee Possible new CHF dx vs third spacing secondary to ARF - D dimer elevated at 2.64, likely inflammatory response secondary to effusion Patient not hypoxic, heart rate normal, no recent immobilization, no malignancy. Wells Criteria shows low risk 1.3% PE risk. - BNP: 0 - Chest XR showed interval development of a large left sided pleural effusion. - Echo showed LVEF 60-65% with grade I diastolic dysfunction - BLE edema worse L>R, prior left foot surgery with screws so L chronically worse than R Dopplers ordered to rule out DVT - Monitor vital signs, I&Os, BUN/creatinine, daily weights, neuro status and patient is a fall risk - Monitor serum electrolytes, Keep serum Potassium>4 and serum Magnesium>2 and CBC - Lasix x1 ordered, discussed with Neprhology Dr. Nolan and antwanay to give with current renal function - S/p thoracentesis on 05/[address] Driver resulting in 700 ml thin yellow fluid removed pleural fluid studies pending (2) Anemia: Code(s): D64.9 - Anemia, unspecified Status: Acute Assessment and Plan: H/H 7.8/25.3 on admission. Previously hgb 8.8. Patient denies hematuria and dark/tarry stools - iron panel and ferritin ordered - B12 and folate ordered - Continue to monitor (3) Stage 5 chronic kidney disease: Code(s): N18.5 - Chronic kidney disease, stage 5 Status: Acute Assessment and Plan: Chronic. Follows with nephrology Dr. Vargas, last seen 02/19/25. Per nephrology note on 02/19/25: creatinine has been running ~ 1.8 - 2.3mg/dl in the last few years; a bit worse by recent testing in the last several months -- suspect a component of disease progression given worsening proteinuria - BUN/Cr 44/4.8 with GFR 9 on admission - Bicarb 16 - UA nonconcerning for infection and patient denies all UTI like symptoms, discontinued rocephin - Renal US ordered - Avoid nephrotoxic medications - Renally dose medications - Nephrology consulted (4) Hypertension: Code(s): I10 - Essential (primary) hypertension Status: Acute Assessment and Plan: Chronic, continue home medications - diltiazem 240 mg daily - hydralazine 25 mg BID - blood pressures remain stable, continue to monitor Plan Patient recently diagnosed with ear infection by PCP. Started on amoxicillin 250 mg BID. Will continue this medication to complete the course. Quality VTE Prophylaxis VTE prophylaxis: pharmacologic ordered Hospitalist MIPS Advance Care Plan I have confirmed that the patient's Advanced Care Plan is present, code status is documented, or surrogate decision maker is listed in patient medical record.: Yes Medication Reconciliation I have utilized all available resources to obtain, update and review the patients current medications (includes all prescriptions, OTC, herbals, cannabis, and nutritional supplements).: Yes
[2025-05-01 07:03] LABS: Alanine Aminotransferase 11 U/L (6-35); Albumin Level 3.3 g/dL (3.5-5.1); Alkaline Phosphatase 124 U/L (38-126); Anion Gap 10 mmol/L (4-12); Aspartate Amino Transferase 22 U/L (14-36); Bilirubin,Total 0.2 mg/dL (0.2-1.3); Blood Urea Nitrogen 44 mg/dL (7-17); Calcium 8.9 mg/dL (8.4-10.2); Carbon Dioxide 16 mmol/L (22-30); Chloride 115 mmol/L (98-107); Estimated CRCL calculation 9 ml/min; Estimated Glomerular Filt Rate 9; Glucose 100 mg/dL (65-110); Magnesium 2.2 mg/dL (1.6-2.3); Potassium 4.0 mmol/L (3.4-5.0); Sodium 141 mmol/L (137-145); Total Protein 6.2 g/dL (6.3-8.2)
--- NOTE | 2025-05-01 10:30 | PM.CNNEP ---
Assessment and Plan Assessment and plan (1) Pleural effusion: Code(s): J90 - Pleural effusion, not elsewhere classified Status: Acute Assessment and Plan: Patient has a pleural effusion. Thoracentesis was done and she feels better.. Etiology of the pleural effusion may be multifactorial. The patient has a high creatinine and so there could be some uremic component to the pleural effusion. The patient has volume overload. This could contribute to any other cause for the pleural effusion The patient smokes and so could have cancer I suppose. Will see what the results of the thoracentesis are (2) Stage 5 chronic kidney disease: Code(s): N18.5 - Chronic kidney disease, stage 5 Status: Acute Assessment and Plan: The patient has chronic kidney disease. He she has been seeing Dr. Vargas. It is felt to be due to hypertension and vascular disease. She just saw him in the office in October. At that time her kidney function was a little better. He did tell her that her kidneys were ?wearing out ?and also that she might need dialysis at some point. Her sister was on dialysis and it was not easy for her. Her brother needs dialysis but he is refusing. So originally the patient was going to not do dialysis at all but after talking with Dr. Vargas and getting more information from [email or web address], she has decided to give peritoneal dialysis a try when she needs it. At this point will check renal ultrasound and other tests to rule out other causes of why her creatinine might be higher. Her trying to differentiate between an acute on chronic kidney failure versus just progression of her chronic disease. Will check renal ultrasound, CK, and urine studies. (3) Anemia: Code(s): D64.9 - Anemia, unspecified Status: Acute Assessment and Plan: The patient has a low hemoglobin (4) Tobacco use: Code(s): Z72.0 - Tobacco use Status: Acute Assessment and Plan: The patient has been encouraged to stop smoking (5) Secondary renal hyperparathyroidism: Code(s): N25.81 - Secondary hyperparathyroidism of renal origin Status: Acute Assessment and Plan: Calcium level is normal (6) Hypertension: Code(s): I10 - Essential (primary) hypertension Status: Acute Assessment and Plan: Blood pressure running in the 140s to 160s. Will let the blood pressure run a little bit on the high side for now while we are figure out the kidney situation. History of Present Illness Reason for Consult Consult date: 05/01/25 Reason for consult: acute renal failure and chronic renal failure Chief Complaint Chief complaint: n18.9 History of Present Illness Narrative: Juliana is a very pleasant 79-year-old lady who has multiple medical problems including chronic kidney disease with a baseline creatinine of around [address] Washington ongoing the office, tobacco use(about a half a pack per day), hypertension, peripheral vascular disease, hyperlipidemia, arthritis, positive p-ANCA. The patient came into the hospital because of shortness of breath. She says that over the last couple of weeks her swelling is gradually worsened and also her shortness of breath has worsened in parallel. She did not try using extra diuretics. But because the shortness of breath became worse she decided to come to the ER. In the emergency room the patient was evaluated. Chest x-ray showed a large left pleural effusion. The patient was admitted and thoracentesis was done and her breathing is better. Labs were done and this showed that her creatinine is higher than its baseline. The baseline is 4.0. The creatinine in the ER was 4.88. Patient denies any use of nonsteroidal anti-inflammatory agents. She has not had any fevers or chills. No recent antibiotics. No infections. She has not been eatin very well the last few days but she has been drinking fluid Review of Systems Constitutional: Constitutional: Reports no additional constitutional complaints Eyes: Eyes: Reports no additional eye complaints ENT: Reports system reviewed and no additional complaints, except as documented Cardiovascular: Cardiovascular: Reports no additional cardiovascular complaints Respiratory: Respiratory: Reports no additional respiratory complaints Gastrointestinal: Gastrointestinal: Reports no additional gastrointestinal complaints Genitourinary: Genitourinary: Reports no additional female genitourinary complaints Musculoskeletal: Musculoskeletal: Reports no additional musculoskeletal complaints Integumentary/Breasts: Skin/Breast: Reports system reviewed and no additional complaints, except as docu Neurologic: Reports system reviewed and no additional complaints, except as documented Psychiatric: Psychiatric: Reports no additional psychiatric complaints Endocrine: Endocrine: Reports no additional endocrine complaints PMFSH Past Medical History Medical History Lymphocytic colitis Tobacco use Positive P-ANCA titer Diarrhea Depression CKD (chronic kidney disease) Shortness of breath Arthritis Cellulitis High cholesterol Hypertension Dizziness Vision abnormalities Arterial vascular disease Peroneal tendinitis of left lower leg Surgical History Surgical History Status post left foot surgery Family History Family History Other Hypertension Malignant neoplasm Social History Social History Social History: Lives at home with . Has a cat and a dog. Smoking packs per day: 0.5 Smoking cigarettes per day: 10.0 Years smoked: 50 Smoking pack-years: 25.00 Smoking status: Current every day smoker Tobacco type: cigarettes Alcohol intake: never Substance use: never Substance use type: does not use Do You Feel Safe in your Home?: Yes Lack of Transportation: No Lack of Food: Never True Current Housing: I Have Housing Concerned About Future Housing: No Difficulty Paying Gas/Electric Bills: No Difficulty Paying for Meds: No Currently Unemployed: No Education: High School Diploma/GED Difficulty w/ Childcare or Family Care: No Living arrangements: with family Gender identity (if verbalized by the patient): Female Sexual Orientation (if Verbalized by the Patient): Straight or Heterosexual Spiritual care concerns: No Meds Home Medications and Allergies Home Medications ?Medication ?Instructions ?Recorded ?Confirmed ?Type aspirin 81 mg tablet,delayed 81 mg PO DAILY 02/21/23 05/01/25 History release (Adult Aspirin Regimen) calcium 600 mg (as 1 tablet PO BID 02/21/23 05/01/25 History carbonate)-vitamin D3 10 mcg (400 unit) tablet diltiazem HCl 240 mg 240 mg PO DAILY 02/21/23 05/01/25 History capsule,extended release 24 hr gabapentin 300 mg capsule 300 mg PO BID 02/21/23 05/01/25 History lovastatin 40 mg tablet 40 mg PO DAILY 02/21/23 05/01/25 History mecobalamin (vitamin B12) 1,000 1,000 mcg PO DAILY 02/21/23 05/01/25 History mcg chewable tablet sertraline 100 mg tablet 100 mg PO HS 02/21/23 05/01/25 History cholecalciferol (vitamin D3) 50 50 mcg PO DAILY 02/19/25 05/01/25 History mcg (2,000 unit) capsule hydralazine 25 mg tablet See Rx Instructions .Route 04/22/25 05/01/25 Rx .COMPLEX #180 tabs amoxicillin 250 mg capsule 250 mg PO Q12H 05/01/25 05/01/25 History ketorolac 0.4 % eye drops 1 drp RIGHT EYE TID 05/01/25 05/01/25 History loperamide 2 mg capsule 2 mg PO DAILY PRN loose stool 05/01/25 05/01/25 History (Anti-Diarrheal (loperamide)) prednisolone acetate 1 % eye 1 drp RIGHT EYE Q8H 05/01/25 05/01/25 History drops,suspension Allergies Allergy/AdvReac Type Severity Reaction Status Date / Time No Known Allergies Allergy Verified 05/01/25 06:53 Vital Signs Vital Signs - 24 hr 05/01/25 11:00 05/01/25 14:21 05/01/25 14:40 Temperature 97.3 F L Pulse Rate 87 Respiratory Rate 18 Blood Pressure 161/70 H 142/69 H Pulse Oximetry 95 Oxygen Delivery Room Air 05/01/25 18:25 05/01/25 20:00 05/01/25 22:00 Temperature 97.2 F L Pulse Rate 87 87 Respiratory Rate 20 20 Blood Pressure 152/67 H 174/70 H Pulse Oximetry 95 95 Oxygen Delivery Room Air 05/01/25 22:16 05/02/25 05:15 Temperature 96.9 F L Pulse Rate 85 Respiratory Rate 18 Blood Pressure 154/76 H Pulse Oximetry 95 95 Oxygen Delivery Room Air Exam Narrative: Exam Narrative: Well developed well-nourished female in no acute distress Skin is warm and dry without rash Head normocephalic atraumatic Eyes normal sclerae and conjunctivae Mouth normal lips teeth and gums Neck no nodes no thyromegaly no carotid bruits Axillae no nodes Back no CVA tenderness Lungs symmetric and clear on the right to auscultation and decreased breath sounds at the left base and normal to percussion on the right dullness at the base on the left Heart regular rate and rhythm without rub or gallop Abdomen bowel sounds positive soft nontender, no HSM, masses, or bruits. Extremities no cyanosis, clubbing, 2+ bilateral edema Pulses 2+ equal in radial arteries Psychological not anxious or depressed Neuro alert and oriented x3 motor 5/5 cranial nerves 2-12 intact reflexes 2+ and equal in the biceps and patellar tendons cerebellar normal rapid alternating movements Results Lab Results 05/02/25 06:02 05/02/25 06:02 Lab results: Most recent lab results Calcium 8.9 mg/dL (8.4-10.2) 05/02/25 06:02 Magnesium 2.2 mg/dL (1.6-2.3) 05/01/25 06:21 Urine Creatinine 45.5 mg/dL 05/01/25 15:47
[2025-05-01] MEDS: dilTIAZem HCL CD 240 MG CAP.24HR PO (11:02)
[2025-05-01] MEDS: SERTRALINE HCL 50 MG TABLET 100 MG PO (11:02)
[2025-05-01] MEDS: CYANOCOBALAMIN 1,000 MCG TABLET 1000 MCG PO (11:02)
[2025-05-01] MEDS: GABAPENTIN 300 MG CAPSULE PO ×2 (11:02→18:16)
[2025-05-01] MEDS: prednisoLONE ACETATE 1% OPHTH 5 ML 1 DROP RIGHT EYE ×3 (11:03→21:35)
[2025-05-01] MEDS: KETOROLAC 0.5% OP SOLN 5 ML BOTTLE 1 DROP RIGHT EYE ×3 (11:03→18:17)
[2025-05-01 12:04] LABS: Appearance Pleural Fluid Hazy (Clear); Color Pleural Fluid Yellow (Colorless)
[2025-05-01 12:05] LABS: Lymphocytes Pleural Fluid 27 %; Macrophages Pleural Fluid 60 %; Monocytes Pleural Fluid 5 %; Neutrophils Pleural Fluid 8 % (0-25)
--- NOTE | 2025-05-01 12:36 | PM.OP ---
Procedure Note - Brief Procedure Note - Brief Date of procedure: 05/01/25 Left sided Pleural effusion Post-op diagnosis: Same Procedure performed: Left sided US guided thoracentesis Surgeon: Maral Driver MD Anesthesia: local Findings: sterile technique supine position Lidocaine 1% 5Fr centesis catheter placed 700cc thin yellow fluid returned. Quantity based on patient tolerance... Description of procedure: as above Estimated blood loss (mL): 0.1 Pathology: Yes Complications: None Condition: Stable Disposition: Floor
[2025-05-01] MEDS: LOPERAMIDE HCL 2 MG CAPSULE PO (14:38)
[2025-05-01] MEDS: ACETAMINOPHEN 325 MG TABLET 650 MG PO (14:38)
[2025-05-01 14:49] LABS: Iron 40 ug/dL (37-170)
[2025-05-01 14:58] LABS: Percent Iron Saturation 13 % (20-50)
[2025-05-01 15:20] LABS: Ferritin 19.80 ng/mL (11.1-264)
[2025-05-01 15:29] LABS: Creatine Kinase 61 U/L (30-135)
[2025-05-01 16:08] LABS: Urea Random Urine 204 MG/DL
[2025-05-01 16:28] LABS: Vitamin B12 > 1000.0 pg/mL (239-931)
[2025-05-01 17:16] LABS: Total Protein Urine Random 324 mg/dL; Ur Ttl Prot Creatinine Ratio 7.12 mg/mg (0-0.20)
[2025-05-01] MEDS: LOVASTATIN 20 MG TABLET 40 MG PO (18:16)
[2025-05-02 05:15] VITALS: BP 154/76; PULSE 85; RESP 18; TEMP 36.1; O2SAT 95
[2025-05-02] MEDS: prednisoLONE ACETATE 1% OPHTH 5 ML 1 DROP RIGHT EYE ×3 (05:33→21:39)
[2025-05-02 06:40] LABS: Hematocrit 26.0 % (37.0-47.0); Hemoglobin 7.9 g/dL (12.0-15.0); Mean Corpuscular HGB Conc 30.4 g/dl (32-36); Mean Corpuscular Hemoglobin 27.1 pg (26-34); Mean Corpuscular Volume 89.0 fl (80-100); Platelet Count Result 284 k/mm3 (150-375); Red Blood Count 2.92 M/mm3 (4.2-5.4); White Blood Count 7.3 K/mm3 (4.5-10.0)
[2025-05-02 06:57] LABS: Alanine Aminotransferase 11 U/L (6-35); Albumin Level 3.3 g/dL (3.5-5.1); Alkaline Phosphatase 115 U/L (38-126); Anion Gap 9 mmol/L (4-12); Aspartate Amino Transferase 19 U/L (14-36); Bilirubin,Total 0.1 mg/dL (0.2-1.3); Blood Urea Nitrogen 43 mg/dL (7-17); Calcium 8.9 mg/dL (8.4-10.2); Carbon Dioxide 18 mmol/L (22-30); Chloride 111 mmol/L (98-107); Estimated CRCL calculation 9 ml/min; Estimated Glomerular Filt Rate 8; Glucose 108 mg/dL (65-110); Potassium 3.9 mmol/L (3.4-5.0); Sodium 138 mmol/L (137-145); Total Protein 6.0 g/dL (6.3-8.2)
--- NOTE | 2025-05-02 08:10 | PM.IMPN ---
Progress Note: A&P Assessment and Plan (1) Pleural effusion: Code(s): J90 - Pleural effusion, not elsewhere classified Status: Acute Assessment and Plan: Symptoms: orthopnea and BLE edema extending to knee Possible new CHF dx vs third spacing secondary to ARF - D dimer elevated at 2.64, likely inflammatory response secondary to effusion Patient not hypoxic, heart rate normal, no recent immobilization, no malignancy. Wells Criteria shows low risk 1.3% PE risk. - BNP: 2110 - Chest XR showed interval development of a large left sided pleural effusion. - Echo showed LVEF 60-65% with grade I diastolic dysfunction - BLE edema worse L>R, prior left foot surgery with screws so L chronically worse than R Dopplers ordered to rule out DVT - Monitor vital signs, I&Os, BUN/creatinine, daily weights, neuro status and patient is a fall risk - Monitor serum electrolytes, Keep serum Potassium>4 and serum Magnesium>2 and CBC - Lasix 40 mg IV daily, ordered per nephrology - S/p thoracentesis on 05/[address] Driver resulting in 700 ml thin yellow fluid removed pleural fluid studies: Gram stain showing no WBC or organisms. Cultures pending - Nephrology consulted for cocurrent CKD The fact that her heart function is normal suggest that all of this is from her kidneys between the poor kidney function and her large amount of protein in the urine. Remains on room air and notes shortness of breath has resolved. Lungs are clear to the upper lobes bilaterally with slight diminishment in the right lower base and coarseness throughout the left lung to auscultation. Patient notes abdominal bloating and states she feels more swollen today. Denies any nausea/vomiting and is tolerating a diet. She continues to have BM and pass flatus. Abdominal US ordered to evaluate ascites given volume overload. Given that echo showed normal heart function likely the volume overload is more related to current renal function. See plan below. (2) Anemia: Code(s): D64.9 - Anemia, unspecified Status: Acute Assessment and Plan: H/H 7.8/25.3 on admission. Previously hgb 8.8. Patient denies hematuria and dark/tarry stools - H/H remains stable at 7.9/26 - iron panel and ferritin WNL - B12 and folate WNL - started on epogen per nephrology - Continue to monitor (3) Stage 5 chronic kidney disease: Code(s): N18.5 - Chronic kidney disease, stage 5 Status: Acute Assessment and Plan: Chronic. Follows with nephrology Dr. Vargas, last seen 02/19/25. Per nephrology note on 02/19/25: creatinine has been running ~ 1.8 - 2.3mg/dl in the last few years; a bit worse by recent testing in the last several months -- suspect a component of disease progression given worsening proteinuria - BUN/Cr 44/4.8 with GFR 9 on admission, now BUN/Cr 43/4.94 with GFR 8 on am labs - Bicarb 18 - UA nonconcerning for infection and patient denies all UTI like symptoms, discontinued rocephin - Renal US: Bilateral renal cysts. No hydronephrosis. Lower pole the right kidney is obscured but appeared atrophic on prior MRI. - Avoid nephrotoxic medications - Renally dose medications - Nephrology consulted Concern for dialysis need Will check a 24hour urine to see if her EGFR is over estimating her to function. (4) Hypertension: Code(s): I10 - Essential (primary) hypertension Status: Acute Assessment and Plan: Chronic, continue home medications - diltiazem 240 mg daily - hydralazine 25 mg BID - blood pressures remain stable, continue to monitor Plan Patient recently diagnosed with ear infection by PCP. Started on amoxicillin 250 mg BID. Will continue this medication to complete the course. Time Spent With Patient Time with patient: 25 - 35 minutes Subjective Date/time seen: 05/02/25 08:10 Interval history: 79 year old female with past medical history of lymphocytic colitis, arterial vascular disease, arthritis, chronic kidney disease, depression, high cholesterol, and hypertension presents to the hospital for shortness of breath that has been ongoing for several weeks. Patient is sitting up comfortably in her bed. She states that the shortness of breath has resolved and denies a cough. She continues to endorse pain at the thoracentesis site. No noted bruising or bleeding. She continues to endorse bilateral lower extremity edema without associated pain or redness. Patient notes abdominal bloating and states she feels more swollen today. Denies any nausea/vomiting and is tolerating a diet. She continues to have BM and pass flatus. She has no other complaints denying chest pain, palpitations. Review of Systems Review of Systems: All systems reviewed & are unremarkable except as noted in HPI and below Exam Narrative: AF HR 85 RR 18 Spo2 95 BP 154/76 General: female in no acute respiratory distress who is nontoxic appearing, sitting on side of bed. HEENT: Normocephalic. Atraumatic. Extraocular movement intact. Sclera clear and anicteric. No facial asymmetry. Chest: Lungs are clear to the upper lobes bilaterally with slight diminishment in the right lower base and coarseness throughout the left lung to auscultation. Speaking full sentences. CV: Heart was regular rate and rhythm. Abd: Abdomen was soft. Nontender. Nondistended. Positive bowel sounds. Ext: No clubbing, cyanosis. DP pulses bilaterally. 2+ pitting edema extending to the knees bilaterally, worse on L>R. No redness or pain. Neuro: Patient is alert and oriented x4. Speech is clear. Walked from couch to side of bed using wheeled walker. Objective Data Vital Signs Vital Signs: Vital Signs - 24 hr 05/01/25 11:00 05/01/25 14:21 05/01/25 14:40 Temperature 97.3 F L Pulse Rate 87 Respiratory Rate 18 Blood Pressure 161/70 H 142/69 H Pulse Oximetry 95 Oxygen Delivery Room Air 05/01/25 18:25 05/01/25 20:00 05/01/25 22:00 Temperature 97.2 F L Pulse Rate 87 87 Respiratory Rate 20 20 Blood Pressure 152/67 H 174/70 H Pulse Oximetry 95 95 Oxygen Delivery Room Air 05/01/25 22:16 05/02/25 05:15 Temperature 96.9 F L Pulse Rate 85 Respiratory Rate 18 Blood Pressure 154/76 H Pulse Oximetry 95 95 Oxygen Delivery Room Air Intake/Output Intake/Output: Intake & Output 04/29/25 04/30/25 05/01/25 05/02/25 23:59 23:59 23:59 23:59 Intake Total 530 100 Output Total 700 Balance -170 100 Meds/Results Medications: Active Medications Generic Name Dose Route Start Last Admin Trade Name Freq PRN Reason Stop Dose Admin Acetaminophen 650 mg 05/01/25 14:15 05/01/25 14:38 Acetaminophen 325 Mg Tablet PO 650 mg Q6H PRN Administration Mild Pain (1-3) or Fever Cyanocobalamin 1,000 mcg 05/01/25 09:00 05/01/25 11:02 Cyanocobalamin 1,000 Mcg Tablet PO 1,000 mcg DAILY [facility] Administration Diltiazem HCl 240 mg 05/01/25 09:00 05/01/25 11:02 Diltiazem Hcl Cd 240 Mg Cap.24hr PO 240 mg DAILY [facility] Administration Gabapentin 300 mg 05/01/25 09:00 05/01/25 18:16 Gabapentin 300 Mg Capsule PO 300 mg BID [facility] Administration Hydralazine HCl 25 mg 05/01/25 09:00 05/01/25 18:20 Hydralazine Hcl 25 Mg Tablet PO 25 mg BID [facility] Administration Ketorolac Tromethamine 1 drop 05/01/25 09:00 05/01/25 18:17 Ketorolac 0.5% Op Soln 5 Ml Bottle RIGHT EYE 1 drop TID [facility] Administration Loperamide HCl 2 mg 05/01/25 14:15 05/01/25 14:38 Loperamide Hcl 2 Mg Capsule PO 2 mg DAILY PRN Administration loose stool Lovastatin 40 mg 05/01/25 17:00 05/01/25 18:16 Lovastatin 20 Mg Tablet PO 40 mg DAILY@1700 [facility] Administration Non-Formulary Medication 250 mg 05/01/25 14:45 Amoxicillin PO 05/31/25 14:44 Q12H [facility] Perflutren Lipid Microsphere 0 ml 05/01/25 07:22 Perflutren Lipid Microspheres 1.5 Ml Vial Diluted To 10 Ml Total Volume IV PUSH 05/04/25 07:22 ONCE PRN adequate visualization Protocol Prednisolone Acetate 1 drop 05/01/25 08:00 05/02/25 05:33 Prednisolone Acetate 1% Ophth 5 Ml RIGHT EYE 1 drop Q8HR [facility] Administration Sertraline HCl 100 mg 05/02/25 21:00 Sertraline Hcl 50 Mg Tablet PO HS [facility] Radiology Results: ITS Impressions Chest X-Ray 05/01/25 10:42 Impression: 1: Moderate left pleural effusion. No pneumothorax identified post procedure. Thoracentesis Ultrasound 05/01/25 12:50 IMPRESSION: 1. Successful ultrasound-guided thoracentesis yielding 700 mL of thin yellow fluid. Renal Ultrasound 05/01/25 21:32 IMPRESSION: 1. Bilateral renal cysts. No hydronephrosis. 2. Lower pole the right kidney is obscured but appeared atrophic on prior MRI. Labs Labs: Laboratory Results - last 24 hr 05/01/25 05/01/25 05/01/25 00:04 06:21 10:18 WBC RBC Hgb Hct MCV MCH MCHC RDW Plt Count MPV Sodium Potassium Chloride Carbon Dioxide Anion Gap BUN Creatinine Estim Creat Clear Calc Estimated GFR Glucose Calcium Iron 40 TIBC 305 % Saturation 13 L Ferritin 19.80 Total Bilirubin AST ALT Alkaline Phosphatase Total Creatine Kinase 61 Total Protein Albumin Vitamin B12 > 1000.0 H Folate 4.7 U Random Total Protein Ur Random Sodium Ur Random Urea Urine Creatinine Protein/Creat Ratio 2 Pleural Fluid Source Pleural fluid Pleural Color Yellow Pleural Appearance Hazy Pleural RBC TNP Pleural Nuc Cells TNP Pleural Neutrophils 8 Pleural Lymphocytes 27 Pleural Monocytes 5 Pleural Macrophages 60 Pleural Total Protein Cancelled 05/01/25 05/02/25 15:47 06:02 WBC 7.3 RBC 2.92 L Hgb 7.9 L Hct 26.0 L MCV 89.0 MCH 27.1 MCHC 30.4 L RDW 14.5 Plt Count 284 MPV 10.6 H Sodium 138 Potassium 3.9 Chloride 111 H Carbon Dioxide 18 L Anion Gap 9 BUN 43 H Creatinine 4.94 H Estim Creat Clear Calc 9 Estimated GFR 8 L Glucose 108 Calcium 8.9 Iron TIBC % Saturation Ferritin Total Bilirubin 0.1 L AST 19 ALT 11 Alkaline Phosphatase 115 Total Creatine Kinase Total Protein 6.0 L Albumin 3.3 L Vitamin B12 Folate U Random Total Protein 324 Ur Random Sodium 121 Ur Random Urea 204 Urine Creatinine 45.5 Protein/Creat Ratio 2 7.12 H Pleural Fluid Source Pleural Color Pleural Appearance Pleural RBC Pleural Nuc Cells Pleural Neutrophils Pleural Lymphocytes Pleural Monocytes Pleural Macrophages Pleural Total Protein Quality VTE Prophylaxis VTE prophylaxis: pharmacologic ordered
--- NOTE | 2025-05-02 09:48 | PHAR ---
05/02 VERFIED BY PHARMACY - HOME MED - AMOXICILLIN 250MG Q 12H
[2025-05-02] MEDS: dilTIAZem HCL CD 240 MG CAP.24HR PO (09:53)
[2025-05-02] MEDS: GABAPENTIN 300 MG CAPSULE PO ×2 (09:53→16:51)
[2025-05-02] MEDS: CYANOCOBALAMIN 1,000 MCG TABLET 1000 MCG PO (09:53)
[2025-05-02] MEDS: AMOXICILLIN 250 MG 250 EACH PO ×2 (09:55→21:39)
[2025-05-02] MEDS: LOPERAMIDE HCL 2 MG CAPSULE PO (10:04)
--- NOTE | 2025-05-02 10:43 | P.PNNP_ITS ---
Progress Note: A&P Assessment and Plan (1) Pleural effusion: Code(s): J90 - Pleural effusion, not elsewhere classified Status: Acute Assessment and Plan: Patient has a pleural effusion. She also has a pericardial effusion on the echo. Most likely volume overload and serositis from high creatinine are contributing to the effusion. She does smoke of course and so could have cancer. The patient had a thoracentesis. Pleural effusion studies are pending. (2) Stage 5 chronic kidney disease: Code(s): N18.5 - Chronic kidney disease, stage 5 Status: Acute Assessment and Plan: The patient has chronic kidney disease. He she has been seeing Dr. Vargas. It is felt to be due to hypertension and vascular disease. She has seen [facility]. At 1st she did not want to do dialysis at all but now she is warming up to the idea and would like to do peritoneal dialysis at home when it is time. Her heart function is normal. Her creatinine tiana with diuretics. Yet she is still volume overloaded. I think that it is getting close to having to start dialysis as medications are having a hard time controlling both the BUN/creatinine and her fluid status. Her GFR is a little higher than 1 would expect for her to have uremic signs such as the effusions. Will check a 24hour urine to see if her EGFR is over estimating her to function. Long discussion with the patient the and the son. We discussed the state of her kidneys. The fact that her heart function is normal suggest that all of this is from her kidneys between the poor kidney function and her large amount of protein in the urine. The pericardial effusion and pleural effusion are likely at least partially due to the high creatinine. There is no emergent see reason to start dialysis now but I think it would be to make preparations to start the dialysis. (3) Anemia: Code(s): D64.9 - Anemia, unspecified Status: Acute Assessment and Plan: The patient has a low hemoglobin will start Epogen (4) Tobacco use: Code(s): Z72.0 - Tobacco use Status: Acute Assessment and Plan: The patient has been encouraged to stop smoking (5) Secondary renal hyperparathyroidism: Code(s): N25.81 - Secondary hyperparathyroidism of renal origin Status: Acute Assessment and Plan: Calcium level is normal (6) Hypertension: Code(s): I10 - Essential (primary) hypertension Status: Acute Assessment and Plan: Blood pressure running in the 140s to 160s. The patient received diuretics x1 yesterday. Just for comfort will continue diuretics. Subjective Date/time seen: 05/02/25 10:43 Interval history: Patient is alert. Up in a chair. and son are in the room. No chest pain or shortness of breath Swelling is about the same Review of Systems Cardiovascular: Cardiovascular: Reports no additional cardiovascular complaints Respiratory: Respiratory: Reports no additional respiratory complaints Gastrointestinal: Gastrointestinal: Reports no additional gastrointestinal complaints Genitourinary: Genitourinary: Reports no additional female genitourinary complaints Exam Narrative: WDWN in NAD skin no rash head ncat lungs decreased breath sounds at the left base cor reg no rub abd BS+ nontender and soft ext 1 to 2+ bilateral lower extremity edema. Objective Data Vital Signs Vital Signs: Vital Signs - 24 hr 05/01/25 11:00 05/01/25 14:21 05/01/25 14:40 Temperature 97.3 F L Pulse Rate 87 Respiratory Rate 18 Blood Pressure 161/70 H 142/69 H Pulse Oximetry 95 Oxygen Delivery Room Air 05/01/25 18:25 05/01/25 20:00 05/01/25 22:00 Temperature 97.2 F L Pulse Rate 87 87 Respiratory Rate 20 20 Blood Pressure 152/67 H 174/70 H Pulse Oximetry 95 95 Oxygen Delivery Room Air 05/01/25 22:16 05/02/25 05:15 Temperature 96.9 F L Pulse Rate 85 Respiratory Rate 18 Blood Pressure 154/76 H Pulse Oximetry 95 95 Oxygen Delivery Room Air Intake/Output Intake/Output: Intake & Output 04/29/25 04/30/25 05/01/25 05/02/25 23:59 23:59 23:59 23:59 Intake Total 530 100 Output Total 700 Balance -170 100 Meds/Results Medications: Active Medications Generic Name Dose Route Start Last Admin Trade Name Freq PRN Reason Stop Dose Admin Acetaminophen 650 mg 05/01/25 14:15 05/01/25 14:38 Acetaminophen 325 Mg Tablet PO 650 mg Q6H PRN Administration Mild Pain (1-3) or Fever Cyanocobalamin 1,000 mcg 05/01/25 09:00 05/02/25 09:53 Cyanocobalamin 1,000 Mcg Tablet PO 1,000 mcg DAILY [facility] Administration Diltiazem HCl 240 mg 05/01/25 09:00 05/02/25 09:53 Diltiazem Hcl Cd 240 Mg Cap.24hr PO 240 mg DAILY [facility] Administration Gabapentin 300 mg 05/01/25 09:00 05/02/25 09:53 Gabapentin 300 Mg Capsule PO 300 mg BID [facility] Administration Hydralazine HCl 25 mg 05/01/25 09:00 05/02/25 09:53 Hydralazine Hcl 25 Mg Tablet PO 25 mg BID [facility] Administration Ketorolac Tromethamine 1 drop 05/01/25 09:00 05/01/25 18:17 Ketorolac 0.5% Op Soln 5 Ml Bottle RIGHT EYE 1 drop TID [facility] Administration Loperamide HCl 2 mg 05/01/25 14:15 05/02/25 10:04 Loperamide Hcl 2 Mg Capsule PO 2 mg DAILY PRN Administration loose stool Lovastatin 40 mg 05/01/25 17:00 05/01/25 18:16 Lovastatin 20 Mg Tablet PO 40 mg DAILY@1700 [facility] Administration Non-Formulary Medication 250 mg 05/01/25 10:00 05/02/25 09:55 Amoxicillin PO 05/31/25 09:59 250 mg Q12H [facility] Administration Perflutren Lipid Microsphere 0 ml 05/01/25 07:22 Perflutren Lipid Microspheres 1.5 Ml Vial Diluted To 10 Ml Total Volume IV PUSH 05/04/25 07:22 ONCE PRN adequate visualization Protocol Prednisolone Acetate 1 drop 05/01/25 08:00 05/02/25 05:33 Prednisolone Acetate 1% Ophth 5 Ml RIGHT EYE 1 drop Q8HR [facility] Administration Sertraline HCl 100 mg 05/02/25 21:00 Sertraline Hcl 50 Mg Tablet PO [facility] Radiology Results: ITS Impressions Chest X-Ray 05/01/25 10:42 Impression: 1: Moderate left pleural effusion. No pneumothorax identified post procedure. Thoracentesis Ultrasound 05/01/25 12:50 IMPRESSION: 1. Successful ultrasound-guided thoracentesis yielding 700 mL of thin yellow fluid. Renal Ultrasound 05/01/25 21:32 IMPRESSION: 1. Bilateral renal cysts. No hydronephrosis. 2. Lower pole the right kidney is obscured but appeared atrophic on prior MRI. Labs Labs: Laboratory Results - last 24 hr 05/01/25 05/01/25 05/01/25 00:04 06:21 10:18 WBC RBC Hgb Hct MCV MCH MCHC RDW Plt Count MPV Sodium Potassium Chloride Carbon Dioxide Anion Gap BUN Creatinine Estim Creat Clear Calc Estimated GFR Glucose Calcium Iron 40 TIBC 305 % Saturation 13 L Ferritin 19.80 Total Bilirubin AST ALT Alkaline Phosphatase Total Creatine Kinase 61 Total Protein Albumin Vitamin B12 > 1000.0 H Folate 4.7 U Random Total Protein Ur Random Sodium Ur Random Urea Urine Creatinine Protein/Creat Ratio 2 Pleural Fluid Source Pleural fluid Pleural Color Yellow Pleural Appearance Hazy Pleural RBC TNP Pleural Nuc Cells TNP Pleural Neutrophils 8 Pleural Lymphocytes 27 Pleural Monocytes 5 Pleural Macrophages 60 Pleural Total Protein Cancelled 05/01/25 05/02/25 15:47 06:02 WBC 7.3 RBC 2.92 L Hgb 7.9 L Hct 26.0 L MCV 89.0 MCH 27.1 MCHC 30.4 L RDW 14.5 Plt Count 284 MPV 10.6 H Sodium 138 Potassium 3.9 Chloride 111 H Carbon Dioxide 18 L Anion Gap 9 BUN 43 H Creatinine 4.94 H Estim Creat Clear Calc 9 Estimated GFR 8 L Glucose 108 Calcium 8.9 Iron TIBC % Saturation Ferritin Total Bilirubin 0.1 L AST 19 ALT 11 Alkaline Phosphatase 115 Total Creatine Kinase Total Protein 6.0 L Albumin 3.3 L Vitamin B12 Folate U Random Total Protein 324 Ur Random Sodium 121 Ur Random Urea 204 Urine Creatinine 45.5 Protein/Creat Ratio 2 7.12 H Pleural Fluid Source Pleural Color Pleural Appearance Pleural RBC Pleural Nuc Cells Pleural Neutrophils Pleural Lymphocytes Pleural Monocytes Pleural Macrophages Pleural Total Protein
[2025-05-02] MEDS: KETOROLAC 0.5% OP SOLN 5 ML BOTTLE 1 DROP RIGHT EYE ×3 (12:06→16:52)
[2025-05-02 13:08] LABS: Glucose, Body Fluid 101 mg/dL (.)
[2025-05-02 14:00] VITALS: BP 169/63; PULSE 79; RESP 18; TEMP 36.4; O2SAT 96
[2025-05-02] MEDS: ACETAMINOPHEN 325 MG TABLET 650 MG PO (14:24)
[2025-05-02] MEDS: LOVASTATIN 20 MG TABLET 40 MG PO (16:51)
[2025-05-02 20:00] VITALS: PULSE 81; RESP 16; O2SAT 96
[2025-05-02] MEDS: SERTRALINE HCL 50 MG TABLET 100 MG PO (21:38)
[2025-05-02 22:00] VITALS: BP 150/67; PULSE 81; RESP 16; TEMP 36.5; O2SAT 96
[2025-05-03 06:00] VITALS: BP 153/75; PULSE 77; RESP 16; TEMP 36.5; O2SAT 92
[2025-05-03] MEDS: prednisoLONE ACETATE 1% OPHTH 5 ML 1 DROP RIGHT EYE ×3 (06:10→22:59)
[2025-05-03 06:15] LABS: Hematocrit 24.8 % (37.0-47.0); Hemoglobin 7.5 g/dL (12.0-15.0); Mean Corpuscular HGB Conc 30.2 g/dl (32-36); Mean Corpuscular Hemoglobin 26.9 pg (26-34); Mean Corpuscular Volume 88.9 fl (80-100); Platelet Count Result 256 k/mm3 (150-375); Red Blood Count 2.79 M/mm3 (4.2-5.4); White Blood Count 6.9 K/mm3 (4.5-10.0)
[2025-05-03 06:41] LABS: Alanine Aminotransferase 10 U/L (6-35); Albumin Level 3.1 g/dL (3.5-5.1); Alkaline Phosphatase 102 U/L (38-126); Anion Gap 9 mmol/L (4-12); Aspartate Amino Transferase 18 U/L (14-36); Bilirubin,Total 0.3 mg/dL (0.2-1.3); Blood Urea Nitrogen 41 mg/dL (7-17); Calcium 8.7 mg/dL (8.4-10.2); Carbon Dioxide 18 mmol/L (22-30); Chloride 111 mmol/L (98-107); Estimated CRCL calculation 9 ml/min; Estimated Glomerular Filt Rate 9; Glucose 91 mg/dL (65-110); Potassium 4.6 mmol/L (3.4-5.0); Sodium 138 mmol/L (137-145); Total Protein 5.9 g/dL (6.3-8.2)
[2025-05-03] MEDS: ACETAMINOPHEN 325 MG TABLET 650 MG PO (08:25)
[2025-05-03] MEDS: GABAPENTIN 300 MG CAPSULE PO ×2 (08:25→17:29)
[2025-05-03] MEDS: FUROSEMIDE INJ 40 MG/4 ML VIAL IV PUSH (08:25)
[2025-05-03] MEDS: CYANOCOBALAMIN 1,000 MCG TABLET 1000 MCG PO (08:25)
[2025-05-03] MEDS: dilTIAZem HCL CD 240 MG CAP.24HR PO (08:25)
[2025-05-03] MEDS: KETOROLAC 0.5% OP SOLN 5 ML BOTTLE 1 DROP RIGHT EYE ×3 (08:26→17:30)
[2025-05-03] MEDS: AMOXICILLIN 250 MG 250 EACH PO ×2 (08:40→22:59)
--- NOTE | 2025-05-03 09:31 | P.PNIM_ITS ---
Progress Note: A&P Assessment and Plan (1) Pleural effusion: Code(s): J90 - Pleural effusion, not elsewhere classified Status: Acute Assessment and Plan: Symptoms: orthopnea and BLE edema extending to knee Possible new CHF dx vs third spacing secondary to ARF - D dimer elevated at 2.64, likely inflammatory response secondary to effusion Patient not hypoxic, heart rate normal, no recent immobilization, no malignancy. Wells Criteria shows low risk 1.3% PE risk. - BNP: 2110 - Chest XR showed interval development of a large left sided pleural effusion. - Echo showed LVEF 60-65% with grade I diastolic dysfunction - BLE edema worse L>R, prior left foot surgery with screws so L chronically worse than R Doppler ordered to rule out DVT: negative - Patient endorsed abdomen bloating/swelling on 05/02. Abdominal US unremarkable. - Monitor vital signs, I&Os, BUN/creatinine, daily weights, neuro status and patient is a fall risk - Monitor serum electrolytes, Keep serum Potassium>4 and serum Magnesium>2 and CBC - Lasix 40 mg IV daily, ordered per nephrology - Patient current smoker possibility of underlying cancer causing effusion however no other related symptoms. - S/p thoracentesis on 05/[address] Driver resulting in 700 ml thin yellow fluid removed pleural fluid studies: Gram stain showing no WBC or organisms. Cultures pending - Nephrology consulted for cocurrent CKD The fact that her heart function is normal suggest that all of this is from her kidneys between the poor kidney function and her large amount of protein in the urine. Continue lasix to prevent effusion recurrence and repeat chest xr tomorrow See Stage 5 CKD plan #3 below. (2) Anemia: Code(s): D64.9 - Anemia, unspecified Status: Acute Assessment and Plan: H/H 7.8/25.3 on admission. Previously hgb 8.8. Patient denies hematuria and dark/tarry stools - H/H remains stable at 7.5/24.8 - iron panel and ferritin WNL - B12 and folate WNL - started on Epogen per nephrology - Continue to monitor (3) Stage 5 chronic kidney disease: Code(s): N18.5 - Chronic kidney disease, stage 5 Status: Acute Assessment and Plan: Chronic. Follows with nephrology Dr. Vargas, last seen 02/19/25. Per nephrology note on 02/19/25: creatinine has been running ~ 1.8 - 2.3mg/dl in the last few years; a bit worse by recent testing in the last several months -- suspect a component of disease progression given worsening proteinuria - BUN/Cr 44/4.8 with GFR 9 on admission, now BUN/Cr improving slightly at 41/4.73 on am labs - Bicarb 18 - UA nonconcerning for infection and patient denies all UTI like symptoms, discontinued rocephin - Renal US: Bilateral renal cysts. No hydronephrosis. Lower pole the right ki dney is obscured but appeared atrophic on prior MRI. - Avoid nephrotoxic medications - Renally dose medications - Nephrology consulted Concern for dialysis need CK WNL and 24 hours urine creatinine is pending (4) Hypertension: Code(s): I10 - Essential (primary) hypertension Status: Acute Assessment and Plan: Chronic, continue home medications - diltiazem 240 mg daily - hydralazine 25 mg BID - blood pressures remain stable, continue to monitor Plan Patient recently diagnosed with ear infection by PCP. Started on amoxicillin 250 mg BID. Will continue this medication to complete the course. Time Spent With Patient Time with patient: 25 - 35 minutes Subjective Date/time seen: 05/03/25 09:31 Interval history: 79 year old female with past medical history of lymphocytic colitis, arterial vascular disease, arthritis, chronic kidney disease, depression, high cholesterol, and hypertension presents to the hospital for shortness of breath that has been ongoing for several weeks. Patient is pleasant sitting up comfortably in her chair she has no complaints time denying chest pain, shortness a breath, palpitations, nausea/vomiting, abdominal pain, and dizziness/lightheadedness. Patient states that she has been ambulating in the halls and denies any associated weakness. She notes that the bilateral lower extremity edema slightly improved. Review of Systems Review of Systems: All systems reviewed & are unremarkable except as noted in HPI and below Exam Narrative: AF HR 77 RR 18 SpO2 99 BP 151/68 General: female in no acute respiratory distress who is nontoxic appearing, sitting in chair HEENT: Normocephalic. Atraumatic. Extraocular movement intact. Sclera clear and anicteric. No facial asymmetry. Chest: Lungs are clear to right and diminished/slightly coarse throughout the left lung to auscultation. Speaking full sentences. CV: Heart was regular rate and rhythm. Abd: Abdomen was soft. Nontender. Nondistended. Positive bowel sounds. Ext: No clubbing, cyanosis. DP pulses bilaterally. 1+ pitting edema extending to the knees bilaterally, worse on L>R. No redness or pain. Neuro: Patient is alert and oriented x4. Speech is clear. Walked from couch to side of bed using wheeled walker. Objective Data Vital Signs Vital Signs: Vital Signs - 24 hr 05/02/25 09:53 05/02/25 14:00 05/02/25 20:00 Temperature 97.5 F L Pulse Rate 79 81 Respiratory Rate 18 16 Blood Pressure 169/63 H Pulse Oximetry 96 96 Oxygen Delivery Room Air Room Air 05/02/25 22:00 05/03/25 06:00 Temperature 97.7 F 97.7 F Pulse Rate 81 77 Respiratory Rate 16 16 Blood Pressure 150/67 H 153/75 H Pulse Oximetry 96 92 Oxygen Delivery Intake/Output Intake/Output: Intake & Output 04/30/25 05/01/25 05/02/25 05/03/25 23:59 23:59 23:59 23:59 Intake Total 530 580 390 Output Total 700 300 300 Balance -170 280 90 Meds/Results Medications: Active Medications Generic Name Dose Route Start Last Admin Trade Name Freq PRN Reason Stop Dose Admin Acetaminophen 650 mg 05/01/25 14:15 05/03/25 08:25 Acetaminophen 325 Mg Tablet PO 650 mg Q6H PRN Administration Mild Pain (1-3) or Fever Cyanocobalamin 1,000 mcg 05/01/25 09:00 05/03/25 08:25 Cyanocobalamin 1,000 Mcg Tablet PO 1,000 mcg DAILY PRAMOD Administration Diltiazem HCl 240 mg 05/01/25 09:00 05/03/25 08:25 Diltiazem Hcl Cd 240 Mg Cap.24hr PO 240 mg DAILY PRAMOD Administration Furosemide 40 mg 05/03/25 09:00 05/03/25 08:25 Furosemide Inj 40 Mg/4 Ml Vial IV PUSH 40 mg DAILY PRAMOD Administration Gabapentin 300 mg 05/01/25 09:00 05/03/25 08:25 Gabapentin 300 Mg Capsule PO 300 mg BID PRAMOD Administration Hydralazine HCl 25 mg 05/01/25 09:00 05/03/25 08:25 Hydralazine Hcl 25 Mg Tablet PO 25 mg BID PRAMOD Administration Ketorolac Tromethamine 1 drop 05/01/25 09:00 05/03/25 08:26 Ketorolac 0.5% Op Soln 5 Ml Bottle RIGHT EYE 1 drop TID PRAMOD Administration Loperamide HCl 2 mg 05/01/25 14:15 05/02/25 10:04 Loperamide Hcl 2 Mg Capsule PO 2 mg DAILY PRN Administration loose stool Lovastatin 40 mg 05/01/25 17:00 05/02/25 16:51 Lovastatin 20 Mg Tablet PO 40 mg DAILY@1700 PRAMOD Administration Amoxicillin 250 Mg 250 mg 05/01/25 10:00 05/03/25 08:40 Capsule Home Med PO 05/31/25 09:59 250 mg Q12H PRAMOD Administration Perflutren Lipid Microsphere 0 ml 05/01/25 07:22 Perflutren Lipid Microspheres 1.5 Ml Vial Diluted To 10 Ml Total Volume IV PUSH 05/04/25 07:22 ONCE PRN adequate visualization Protocol Prednisolone Acetate 1 drop 05/01/25 08:00 05/03/25 06:10 Prednisolone Acetate 1% Ophth 5 Ml RIGHT EYE 1 drop Q8HR PRAMOD Administration Sertraline HCl 100 mg 05/02/25 21:00 05/02/25 21:38 Sertraline Hcl 50 Mg Tablet PO 100 mg HS PRAMOD Administration Radiology Results: ITS Impressions Chest X-Ray 05/01/25 10:42 Impression: 1: Moderate left pleural effusion. No pneumothorax identified post procedure. Thoracentesis Ultrasound 05/01/25 12:50 IMPRESSION: 1. Successful ultrasound-guided thoracentesis yielding 700 mL of thin yellow fluid. Renal Ultrasound 05/01/25 21:32 IMPRESSION: 1. Bilateral renal cysts. No hydronephrosis. 2. Lower pole the right kidney is obscured but appeared atrophic on prior MRI. Venous Doppler Study 05/02/25 15:27 IMPRESSION: 1. No deep venous thrombosis within the bilateral lower extremities. Abdomen Ultrasound 05/02/25 17:33 IMPRESSION: No definite sonographic evidence of ascites. Labs Labs: Laboratory Results - last 24 hr 05/01/25 05/03/25 10:18 05:46 WBC 6.9 RBC 2.79 L Hgb 7.5 L Hct 24.8 L MCV 88.9 MCH 26.9 MCHC 30.2 L RDW 14.2 Plt Count 256 MPV 10.5 H Sodium 138 Potassium 4.6 Chloride 111 H Carbon Dioxide 18 L Anion Gap 9 BUN 41 H Creatinine 4.73 H Estim Creat Clear Calc 9 Estimated GFR 9 L Glucose 91 Calcium 8.7 Phosphorus 5.6 H Total Bilirubin 0.3 AST 18 ALT 10 Alkaline Phosphatase 102 Total Protein 5.9 L Albumin 3.1 L Fluid Glucose 101 Fluid Total Protein 2.6 Quality VTE Prophylaxis VTE prophylaxis: pharmacologic ordered
--- NOTE | 2025-05-03 09:36 | PM.PNNEP ---
Progress Note: A&P Assessment and Plan (1) Pleural effusion: Code(s): J90 - Pleural effusion, not elsewhere classified Status: Acute Assessment and Plan: Patient has a pleural effusion. Thoracentesis was done and she feels better.. Etiology of the pleural effusion may be multifactorial. The patient has a high creatinine and so there could be some uremic component to the pleural effusion. The patient has volume overload. This could contribute to any other cause for the pleural effusion The patient smokes and so could have cancer I suppose. Will see what the results of the thoracentesis are getting diuretics now to prevent recurrence of the pleural effusion. She is getting 40mg per day will go 1 more day and then see how the Chest x-ray, exam, and numbers look tomorrow. (2) Stage 5 chronic kidney disease: Code(s): N18.5 - Chronic kidney disease, stage 5 Status: Acute Assessment and Plan: The patient has chronic kidney disease. He she has been seeing Dr. Vargas. It is felt to be due to hypertension and vascular disease. She just saw him in the office in October. At that time her kidney function was a little better. He did tell her that her kidneys were ?wearing out ?and also that she might need dialysis at some point. Her sister was on dialysis and it was not easy for her. Her brother needs dialysis but he is refusing. So originally the patient was going to not do dialysis at all but after talking with Dr. Vargas and getting more information from [facility], she has decided to give peritoneal dialysis a try when she needs it. 24hour urine creatinine is pending renal ultrasound unremarkable CK is okay urine electrolytes and fractional excretion of urea are nonprerenal (3) Anemia: Code(s): D64.9 - Anemia, unspecified Status: Acute Assessment and Plan: The patient has a low hemoglobin will check iron studies and start Epogen (4) Tobacco use: Code(s): Z72.0 - Tobacco use Status: Acute Assessment and Plan: The patient has been encouraged to stop smoking (5) Secondary renal hyperparathyroidism: Code(s): N25.81 - Secondary hyperparathyroidism of renal origin Status: Acute Assessment and Plan: Calcium level is normal (6) Hypertension: Code(s): I10 - Essential (primary) hypertension Status: Acute Assessment and Plan: Blood pressure running in the 140s to 160s. Will let the blood pressure run a little bit on the high side for now while we are figure out the kidney situation. Plan Dr. Vargas comes back tomorrow Subjective Date/time seen: 05/03/25 09:36 Interval history: patient feels better. A little bit of swelling breathing is much better patient was not on diuretics on admission Review of Systems Cardiovascular: Cardiovascular: Reports no additional cardiovascular complaints Respiratory: Respiratory: Reports no additional respiratory complaints Gastrointestinal: Gastrointestinal: Reports no additional gastrointestinal complaints Genitourinary: Genitourinary: Reports no additional female genitourinary complaints Exam Narrative: WDWN in NAD skin no rash which or subcu nodules head ncat lungs clear with slightly decreased breath sounds at the left base cor reg no rub or gallop abd BS+ nontender and soft ext trace edema. Objective Data Vital Signs Vital Signs: Vital Signs - 24 hr 05/02/25 09:53 05/02/25 14:00 05/02/25 20:00 Temperature 97.5 F L Pulse Rate 79 81 Respiratory Rate 18 16 Blood Pressure 169/63 H Pulse Oximetry 96 96 Oxygen Delivery Room Air Room Air 05/02/25 22:00 05/03/25 06:00 Temperature 97.7 F 97.7 F Pulse Rate 81 77 Respiratory Rate 16 16 Blood Pressure 150/67 H 153/75 H Pulse Oximetry 96 92 Oxygen Delivery Intake/Output Intake/Output: Intake & Output 04/30/25 05/01/25 05/02/25 05/03/25 23:59 23:59 23:59 23:59 Intake Total 530 580 390 Output Total 700 300 300 Balance -170 280 90 Meds/Results Medications: Active Medications Generic Name Dose Route Start Last Admin Trade Name Freq PRN Reason Stop Dose Admin Acetaminophen 650 mg 05/01/25 14:15 05/03/25 08:25 Acetaminophen 325 Mg Tablet PO 650 mg Q6H PRN Administration Mild Pain (1-3) or Fever Cyanocobalamin 1,000 mcg 05/01/25 09:00 05/03/25 08:25 Cyanocobalamin 1,000 Mcg Tablet PO 1,000 mcg DAILY PRAMOD Administration Diltiazem HCl 240 mg 05/01/25 09:00 05/03/25 08:25 Diltiazem Hcl Cd 240 Mg Cap.24hr PO 240 mg DAILY PRAMOD Administration Furosemide 40 mg 05/03/25 09:00 05/03/25 08:25 Furosemide Inj 40 Mg/4 Ml Vial IV PUSH 40 mg DAILY PRAMOD Administration Gabapentin 300 mg 05/01/25 09:00 05/03/25 08:25 Gabapentin 300 Mg Capsule PO 300 mg BID PRAMOD Administration Hydralazine HCl 25 mg 05/01/25 09:00 05/03/25 08:25 Hydralazine Hcl 25 Mg Tablet PO 25 mg BID PRAMOD Administration Ketorolac Tromethamine 1 drop 05/01/25 09:00 05/03/25 08:26 Ketorolac 0.5% Op Soln 5 Ml Bottle RIGHT EYE 1 drop TID PRAMOD Administration Loperamide HCl 2 mg 05/01/25 14:15 05/02/25 10:04 Loperamide Hcl 2 Mg Capsule PO 2 mg DAILY PRN Administration loose stool Lovastatin 40 mg 05/01/25 17:00 05/02/25 16:51 Lovastatin 20 Mg Tablet PO 40 mg DAILY@1700 PRAMOD Administration Amoxicillin 250 Mg 250 mg 05/01/25 10:00 05/03/25 08:40 Capsule Home Med PO 05/31/25 09:59 250 mg Q12H PRAMOD Administration Perflutren Lipid Microsphere 0 ml 05/01/25 07:22 Perflutren Lipid Microspheres 1.5 Ml Vial Diluted To 10 Ml Total Volume IV PUSH 05/04/25 07:22 ONCE PRN adequate visualization Protocol Prednisolone Acetate 1 drop 05/01/25 08:00 05/03/25 06:10 Prednisolone Acetate 1% Ophth 5 Ml RIGHT EYE 1 drop Q8HR PRAMOD Administration Sertraline HCl 100 mg 05/02/25 21:00 05/02/25 21:38 Sertraline Hcl 50 Mg Tablet PO 100 mg HS PRAMOD Administration Radiology Results: ITS Impressions Chest X-Ray 05/01/25 10:42 Impression: 1: Moderate left pleural effusion. No pneumothorax identified post procedure. Thoracentesis Ultrasound 05/01/25 12:50 IMPRESSION: 1. Successful ultrasound-guided thoracentesis yielding 700 mL of thin yellow fluid. Renal Ultrasound 05/01/25 21:32 IMPRESSION: 1. Bilateral renal cysts. No hydronephrosis. 2. Lower pole the right kidney is obscured but appeared atrophic on prior MRI. Venous Doppler Study 05/02/25 15:27 IMPRESSION: 1. No deep venous thrombosis within the bilateral lower extremities. Abdomen Ultrasound 05/02/25 17:33 IMPRESSION: No definite sonographic evidence of ascites. Labs Labs: Laboratory Results - last 24 hr 05/01/25 05/03/25 10:18 05:46 WBC 6.9 RBC 2.79 L Hgb 7.5 L Hct 24.8 L MCV 88.9 MCH 26.9 MCHC 30.2 L RDW 14.2 Plt Count 256 MPV 10.5 H Sodium 138 Potassium 4.6 Chloride 111 H Carbon Dioxide 18 L Anion Gap 9 BUN 41 H Creatinine 4.73 H Estim Creat Clear Calc 9 Estimated GFR 9 L Glucose 91 Calcium 8.7 Phosphorus 5.6 H Total Bilirubin 0.3 AST 18 ALT 10 Alkaline Phosphatase 102 Total Protein 5.9 L Albumin 3.1 L Fluid Glucose 101 Fluid Total Protein 2.6
[2025-05-03] MEDS: EPOETIN ALFA-EPBX 10,000 UNITS/ML VIAL 10000 UNITS SUB-Q (13:28)
[2025-05-03] MEDS: LOPERAMIDE HCL 2 MG CAPSULE PO (13:34)
[2025-05-03 14:00] VITALS: BP 151/68; PULSE 77; RESP 18; TEMP 36.8; O2SAT 99
[2025-05-03] MEDS: LOVASTATIN 20 MG TABLET 40 MG PO (17:29)
[2025-05-03] MEDS: SERTRALINE HCL 50 MG TABLET 100 MG PO (20:33)
[2025-05-03 21:43] VITALS: BP 168/74; PULSE 85; RESP 18; TEMP 36.6; O2SAT 95
[2025-05-03 23:22] LABS: Total Volume 24 Hour Urine 1600 ml
[2025-05-03 23:40] LABS: Creatinine 24 Hour Urine 0.8 gm/24 (0.8-1.8)
[2025-05-04 06:00] VITALS: BP 151/64; PULSE 80; RESP 20; TEMP 36.5; O2SAT 96
[2025-05-04 06:07] LABS: Hematocrit 25.2 % (37.0-47.0); Hemoglobin 7.7 g/dL (12.0-15.0); Mean Corpuscular HGB Conc 30.6 g/dl (32-36); Mean Corpuscular Hemoglobin 26.9 pg (26-34); Mean Corpuscular Volume 88.1 fl (80-100); Platelet Count Result 270 k/mm3 (150-375); Red Blood Count 2.86 M/mm3 (4.2-5.4); White Blood Count 7.3 K/mm3 (4.5-10.0)
[2025-05-04 06:27] LABS: Alanine Aminotransferase 11 U/L (6-35); Albumin Level 3.1 g/dL (3.5-5.1); Alkaline Phosphatase 111 U/L (38-126); Anion Gap 8 mmol/L (4-12); Aspartate Amino Transferase 19 U/L (14-36); Bilirubin,Total 0.4 mg/dL (0.2-1.3); Blood Urea Nitrogen 43 mg/dL (7-17); Calcium 8.6 mg/dL (8.4-10.2); Carbon Dioxide 20 mmol/L (22-30); Chloride 106 mmol/L (98-107); Estimated CRCL calculation 9 ml/min; Estimated Glomerular Filt Rate 8; Glucose 88 mg/dL (65-110); Potassium 4.1 mmol/L (3.4-5.0); Sodium 134 mmol/L (137-145); Total Protein 5.8 g/dL (6.3-8.2)
[2025-05-04 06:28] LABS: Iron 34 ug/dL (37-170)
[2025-05-04] MEDS: prednisoLONE ACETATE 1% OPHTH 5 ML 1 DROP RIGHT EYE ×2 (06:34→12:56)
[2025-05-04 06:40] LABS: Percent Iron Saturation 12 % (20-50)
[2025-05-04 07:09] LABS: Ferritin 17.10 ng/mL (11.1-264)
[2025-05-04 07:22] LABS: Vitamin B12 > 1000.0 pg/mL (239-931)
[2025-05-04 08:00] VITALS: O2SAT 96
[2025-05-04] MEDS: FUROSEMIDE INJ 40 MG/4 ML VIAL IV PUSH (08:54)
[2025-05-04] MEDS: ACETAMINOPHEN 325 MG TABLET 650 MG PO (08:54)
[2025-05-04] MEDS: CYANOCOBALAMIN 1,000 MCG TABLET 1000 MCG PO (08:56)
[2025-05-04] MEDS: GABAPENTIN 300 MG CAPSULE PO ×2 (08:56→16:37)
[2025-05-04] MEDS: dilTIAZem HCL CD 240 MG CAP.24HR PO (08:56)
[2025-05-04] MEDS: KETOROLAC 0.5% OP SOLN 5 ML BOTTLE 1 DROP RIGHT EYE ×3 (08:57→16:37)
[2025-05-04] MEDS: AMOXICILLIN 250 MG 250 EACH PO (08:57)
--- NOTE | 2025-05-04 09:16 | PM.IMPN ---
Progress Note: A&P Assessment and Plan (1) Pleural effusion: Code(s): J90 - Pleural effusion, not elsewhere classified Status: Acute Assessment and Plan: Symptoms: orthopnea and BLE edema extending to knee Possible new CHF dx vs third spacing secondary to ARF - D dimer elevated at 2.64, likely inflammatory response secondary to effusion Patient not hypoxic, heart rate normal, no recent immobilization, no malignancy. Wells Criteria shows low risk 1.3% PE risk. - BNP: 2110 - Chest XR showed interval development of a large left sided pleural effusion. - Echo showed LVEF 60-65% with grade I diastolic dysfunction - BLE edema worse L>R, prior left foot surgery with screws so L chronically worse than R Doppler ordered to rule out DVT: negative - Patient endorsed abdomen bloating/swelling on 05/02. Abdominal US unremarkable. - Monitor vital signs, I&Os, BUN/creatinine, daily weights, neuro status and patient is a fall risk - Monitor serum electrolytes, Keep serum Potassium>4 and serum Magnesium>2 and CBC - Lasix 40 mg IV daily, ordered per nephrology - Patient current smoker possibility of underlying cancer causing effusion however no other related symptoms. - S/p thoracentesis on 05/[address] Driver resulting in 700 ml thin yellow fluid removed pleural fluid studies: Gram stain showing no WBC or organisms. Cultures pending - Nephrology consulted for cocurrent CKD The fact that her heart function is normal suggest that all of this is from her kidneys between the poor kidney function and her large amount of protein in the urine. Continue lasix to prevent effusion recurrence and repeat chest xr tomorrow See Stage 5 CKD plan #3 below. (2) Anemia: Code(s): D64.9 - Anemia, unspecified Status: Acute Assessment and Plan: H/H 7.8/25.3 on admission. Previously hgb 8.8. Patient denies hematuria and dark/tarry stools - H/H remains stable at 7.5/24.8 - iron panel and ferritin WNL - B12 and folate WNL - started on Epogen per nephrology - Continue to monitor (3) Stage 5 chronic kidney disease: Code(s): N18.5 - Chronic kidney disease, stage 5 Status: Acute Assessment and Plan: Chronic. Follows with nephrology Dr. Vargas, last seen 02/19/25. Per nephrology note on 02/19/25: creatinine has been running ~ 1.8 - 2.3mg/dl in the last few years; a bit worse by recent testing in the last several months -- suspect a component of disease progression given worsening proteinuria - BUN/Cr 44/4.8 with GFR 9 on admission, now BUN/Cr 43/4.95 with GFR 8 on am labs - Bicarb 18 - UA nonconcerning for infection and patient denies all UTI like symptoms, discontinued rocephin - Renal US: Bilateral renal cysts. No hydronephrosis. Lower pole the right kidney is obscured but appeared atrophic on prior MRI. - Avoid nephrotoxic medications - Renally dose medications - Nephrology consulted Concern for dialysis need CK WNL and 24 hours urine creatinine is pending (4) Hypertension: Code(s): I10 - Essential (primary) hypertension Status: Acute Assessment and Plan: Chronic, continue home medications - diltiazem 240 mg daily - hydralazine 25 mg BID - blood pressures remain stable, continue to monitor Plan Patient recently diagnosed with ear infection by PCP. Started on amoxicillin 250 mg BID. Will continue this medication to complete the course. Subjective Date/time seen: 05/04/25 09:16 Interval history: 79 year old female with past medical history of lymphocytic colitis, arterial vascular disease, arthritis, chronic kidney disease, depression, high cholesterol, and hypertension presents to the hospital for shortness of breath that has been ongoing for several weeks. Review of Systems Review of Systems: All systems reviewed & are unremarkable except as noted in HPI and below Exam Narrative: AF HR General: female in no acute respiratory distress who is nontoxic appearing, sitting in chair HEENT: Normocephalic. Atraumatic. Extraocular movement intact. Sclera clear and anicteric. No facial asymmetry. Chest: Lungs are clear to right and diminished/slightly coarse throughout the left lung to auscultation. Speaking full sentences. CV: Heart was regular rate and rhythm. Abd: Abdomen was soft. Nontender. Nondistended. Positive bowel sounds. Ext: No clubbing, cyanosis. DP pulses bilaterally. 1+ pitting edema extending to the knees bilaterally, worse on L>R. No redness or pain. Neuro: Patient is alert and oriented x4. Speech is clear. Walked from couch to side of bed using wheeled walker. Objective Data Vital Signs Vital Signs: Vital Signs - 24 hr 05/03/25 11:44 05/03/25 14:00 05/03/25 21:43 Temperature 98.2 F 97.9 F Pulse Rate 77 85 Respiratory Rate 18 18 Blood Pressure 151/68 H 168/74 H Pulse Oximetry 99 95 Oxygen Delivery Room Air 05/04/25 06:00 Temperature 97.7 F Pulse Rate 80 Respiratory Rate 20 Blood Pressure 151/64 H Pulse Oximetry 96 Oxygen Delivery Intake/Output Intake/Output: Intake & Output 05/01/25 05/02/25 05/03/25 05/04/25 23:59 23:59 23:59 23:59 Intake Total 530 580 870 1 Output Total 700 300 300 Balance -170 280 570 1 Meds/Results Medications: Active Medications Generic Name Dose Route Start Last Admin Trade Name Freq PRN Reason Stop Dose Admin Acetaminophen 650 mg 05/01/25 14:15 05/04/25 08:54 Acetaminophen 325 Mg Tablet PO 650 mg Q6H PRN Administration Mild Pain (1-3) or Fever Cyanocobalamin 1,000 mcg 05/01/25 09:00 05/04/25 08:56 Cyanocobalamin 1,000 Mcg Tablet PO 1,000 mcg DAILY PRAMOD Administration Diltiazem HCl 240 mg 05/01/25 09:00 05/04/25 08:56 Diltiazem Hcl Cd 240 Mg Cap.24hr PO 240 mg DAILY PRAMOD Administration Epoetin Mayco-epbx 10,000 units 05/03/25 09:45 05/03/25 13:28 Epoetin Mayco-Epbx 10,000 Units/Ml Vial SUB-Q 10,000 units TUTHSA@09 PRAMOD Administration Furosemide 40 mg 05/03/25 09:00 05/04/25 08:54 Furosemide Inj 40 Mg/4 Ml Vial IV PUSH 40 mg DAILY PRAMOD Administration Gabapentin 300 mg 05/01/25 09:00 05/04/25 08:56 Gabapentin 300 Mg Capsule PO 300 mg BID PRAMOD Administration Hydralazine HCl 25 mg 05/01/25 09:00 05/04/25 08:57 Hydralazine Hcl 25 Mg Tablet PO 25 mg BID PRAMOD Administration Iron Sucrose 200 mg/ Sodium 110 mls @ 220 mls/hr 05/04/25 10:00 Chloride IVPB 05/04/25 10:29 ONCE ONE Ketorolac Tromethamine 1 drop 05/01/25 09:00 05/04/25 08:57 Ketorolac 0.5% Op Soln 5 Ml Bottle RIGHT EYE 1 drop TID PRAMOD Administration Loperamide HCl 2 mg 05/01/25 14:15 05/03/25 13:34 Loperamide Hcl 2 Mg Capsule PO 2 mg DAILY PRN Administration loose stool Lovastatin 40 mg 05/01/25 17:00 05/03/25 17:29 Lovastatin 20 Mg Tablet PO 40 mg DAILY@1700 PRAMOD Administration Amoxicillin 250 Mg 250 mg 05/01/25 10:00 05/04/25 08:57 Capsule Home Med PO 05/31/25 09:59 250 mg Q12H PRAMOD Administration Prednisolone Acetate 1 drop 05/01/25 08:00 05/04/25 06:34 Prednisolone Acetate 1% Ophth 5 Ml RIGHT EYE 1 drop Q8HR PRAMOD Administration Sertraline HCl 100 mg 05/02/25 21:00 05/03/25 20:33 Sertraline Hcl 50 Mg Tablet PO 100 mg HS PRAMOD Administration Radiology Results: ITS Impressions Chest X-Ray 05/01/25 10:42 Impression: 1: Moderate left pleural effusion. No pneumothorax identified post procedure. Thoracentesis Ultrasound 05/01/25 12:50 IMPRESSION: 1. Successful ultrasound-guided thoracentesis yielding 700 mL of thin yellow fluid. Renal Ultrasound 05/01/25 21:32 IMPRESSION: 1. Bilateral renal cysts. No hydronephrosis. 2. Lower pole the right kidney is obscured but appeared atrophic on prior MRI. Venous Doppler Study 05/02/25 15:27 IMPRESSION: 1. No deep venous thrombosis within the bilateral lower extremities. Abdomen Ultrasound 05/02/25 17:33 IMPRESSION: No definite sonographic evidence of ascites. Labs Labs: Laboratory Results - last 24 hr 05/03/25 05/04/25 05/04/25 22:30 05:19 05:20 WBC 7.3 RBC 2.86 L Hgb 7.7 L Hct 25.2 L MCV 88.1 MCH 26.9 MCHC 30.6 L RDW 14.1 Plt Count 270 MPV 10.5 H Sodium 134 L Potassium 4.1 Chloride 106 Carbon Dioxide 20 L Anion Gap 8 BUN 43 H Creatinine 4.95 H Estim Creat Clear Calc 9 Estimated GFR 8 L Glucose 88 Calcium 8.6 Phosphorus 5.9 H Iron 34 L TIBC 287 % Saturation 12 L Ferritin 17.10 Total Bilirubin 0.4 AST 19 ALT 11 Alkaline Phosphatase 111 Total Protein 5.8 L Albumin 3.1 L Vitamin B12 > 1000.0 H Folate 4.1 Ur 24 Hour Volume 1600 Urine Creatinine 50.6 Ur Creatinine 24 Hour 0.8 Quality VTE Prophylaxis VTE prophylaxis: pharmacologic ordered
[2025-05-04] MEDS: IRON SUCROSE COMPLEX 200 MG in SODIUM CHLORIDE 0.9% IV 100 ML 220 MG IVPB (10:23)
--- NOTE | 2025-05-04 11:16 | P.PNNP_ITS ---
Progress Note: A&P Assessment and Plan (1) Stage 5 chronic kidney disease: Code(s): N18.5 - Chronic kidney disease, stage 5 Status: Acute Assessment and Plan: * progressively worsening in the last few moths * was running ~ 1.8 - 2.3mg/dl in the last few years * a bit worse by recent testing in the last several months -- running in the 3 - 4ish range; suspect a component of disease progression given worsening proteinuria * outpatient evaluation noted: * renal ultrasound and renal MRI demonstrate small kidneys with evidence of cortical thinning (and a cortical scar on the right kidney) highly suggestive of hypertensive disease * no evidence of proteinuria noted on initial assessement * serologies significant for a +VIJAY but complements and dsDNA-Ab negative (so doubt lupus) and repeat ANCA negative * suspect due to hypertension and vascular disease, possibly worsened by age- related change * higher creatinine currently likely a manifestation of diuretic therapy to stabilize volume status * repeat renal ultrasound unremarkable * CK is okay * urine electrolytes are non-prerenal * interested in peritoneal dialysis if/when FARMHAND/dialysis is needed... * follow trend of repeat labs and UOP (2) Volume overload: Code(s): E87.70 - Fluid overload, unspecified Status: Acute Assessment and Plan: * as evident on presentation: * shortness of breath, orthopnea + BLE edema * BNP 2109 * large left pleural effusion + PVC on CXR * Echo (05/01) noted: * left ventricular systolic function is normal, estimated at 60-65% * left ventricular diastolic function is grade I diastolic dysfunction * mild aortic valve sclerosis * no pulmonary hypertension, estimated pulmonary arterial systolic pressure is 31 mmHg * large pericardial effusion located posteriorly at 3.0 cm thickness, moderate amount located lateral and on right side, and small apically * BLE Doppler negative for DVTs * given evidence to date, suspect fluid overload due to her poor kidney function along with nephrotic range proteinuria * continue diuretics and will likely need on discharge as well (3) Pleural effusion: Code(s): J90 - Pleural effusion, not elsewhere classified Status: Acute Assessment and Plan: * complicated by orthopnea + BLE edema * CXR with large left pleural effusion * s/p thoracentesis on 05/01: * 700 ml thin yellow fluid removed * pleural fluid studies: gram stain showing no WBC or organisms; cultures pending * no evidence of hypoxia * follow respiratory status (4) Anemia: Code(s): D64.9 - Anemia, unspecified Status: Acute Assessment and Plan: * as noted on admission * presumably partly related to CKD * adequate iron stores by anemia studies * Epogen while hospitalized * follow trend of H/H * may need referral to Hem/Onc for ongoing ELYSIA therapy (5) Hypertension: Code(s): I10 - Essential (primary) hypertension Status: Chronic Assessment and Plan: * reasonable control * follow trend of hemodynamics Not opposed to discharge from renal perspective if otherwise medically stable -- recommend repeat labs in 1 week and prior to office visit with me to follow trend of kidney function and anemia. Will continue to follow. L Subjective Date/time seen: 05/04/25 11:16 Interval history: Follow-up for acute kidney injury on chronic kidney disease (but more likely progression of chronic kidney disease). Chart reviewed -- assuming care from Dr. Nolan; breathing/respiratory status as well as swelling/edema has improved significant since admission with diuretic therapy albeit at the expense of his renal function/creatinine; no apparent distress voiced at the time of my visit; asking about potential discharge today. Exam 2 Narrative: General: elderly but WD/WN female in NAD Heart: normal S1 and S2; no rub Lungs: clear anteriorly; decreased at bases Abdomen: soft, nontender, nondistended, positive bowel sounds Extremities: no cyanosis or clubbing; trace edema Skin: warm and dry Objective Data Vital Signs Vital Signs: Vital Signs Temp Pulse Resp BP Pulse Ox O2 Del Method 05/04/25 08:00 96 Room Air 05/04/25 06:00 97.7 F 80 20 151/64 H 96 05/03/25 21:43 97.9 F 85 18 168/74 H 95 Intake/Output Intake/Output: Intake & Output 05/01/25 05/02/25 05/03/25 05/04/25 23:59 23:59 23:59 23:59 Intake Total 530 580 870 241 Output Total 700 300 300 Balance -170 280 570 241 Meds/Results Medications: Active Medications Generic Name Dose Route Start Last Admin Trade Name Freq PRN Reason Stop Dose Admin Acetaminophen 650 mg 05/01/25 14:15 05/04/25 08:54 Acetaminophen 325 Mg Tablet PO 650 mg Q6H PRN Administration Mild Pain (1-3) or Fever Cyanocobalamin 1,000 mcg 05/01/25 09:00 05/04/25 08:56 Cyanocobalamin 1,000 Mcg Tablet PO 1,000 mcg DAILY PRAMOD Administration Diltiazem HCl 240 mg 05/01/25 09:00 05/04/25 08:56 Diltiazem Hcl Cd 240 Mg Cap.24hr PO 240 mg DAILY PRAMOD Administration Epoetin Mayco-epbx 10,000 units 05/03/25 09:45 05/03/25 13:28 Epoetin Mayco-Epbx 10,000 Units/Ml Vial SUB-Q 10,000 units TUTHSA@09 PRAMOD Administration Furosemide 40 mg 05/03/25 09:00 05/04/25 08:54 Furosemide Inj 40 Mg/4 Ml Vial IV PUSH 40 mg DAILY PRAMOD Administration Gabapentin 300 mg 05/01/25 09:00 05/04/25 16:37 Gabapentin 300 Mg Capsule PO 300 mg BID PRAMOD Administration Hydralazine HCl 25 mg 05/01/25 09:00 05/04/25 16:37 Hydralazine Hcl 25 Mg Tablet PO 25 mg BID PRAMOD Administration Ketorolac Tromethamine 1 drop 05/01/25 09:00 05/04/25 16:37 Ketorolac 0.5% Op Soln 5 Ml Bottle RIGHT EYE 1 drop TID PRAMOD Administration Loperamide HCl 2 mg 05/01/25 14:15 05/03/25 13:34 Loperamide Hcl 2 Mg Capsule PO 2 mg DAILY PRN Administration loose stool Lovastatin 40 mg 05/01/25 17:00 05/04/25 16:37 Lovastatin 20 Mg Tablet PO 40 mg DAILY@1700 PRAMOD Administration Amoxicillin 250 Mg 250 mg 05/01/25 10:00 05/04/25 08:57 Capsule Home Med PO 05/31/25 09:59 250 mg Q12H PRAMOD Administration Prednisolone Acetate 1 drop 05/01/25 08:00 05/04/25 12:56 Prednisolone Acetate 1% Ophth 5 Ml RIGHT EYE 1 drop Q8HR PRAMOD Administration Sertraline HCl 100 mg 05/02/25 21:00 05/03/25 20:33 Sertraline Hcl 50 Mg Tablet PO 100 mg HS PRAMOD Administration Radiology Results: ITS Impressions Thoracentesis Ultrasound 05/01/25 12:50 IMPRESSION: 1. Successful ultrasound-guided thoracentesis yielding 700 mL of thin yellow fluid. Renal Ultrasound 05/01/25 21:32 IMPRESSION: 1. Bilateral renal cysts. No hydronephrosis. 2. Lower pole the right kidney is obscured but appeared atrophic on prior MRI. Venous Doppler Study 05/02/25 15:27 IMPRESSION: 1. No deep venous thrombosis within the bilateral lower extremities. Abdomen Ultrasound 05/02/25 17:33 IMPRESSION: No definite sonographic evidence of ascites. Chest X-Ray 05/04/25 14:18 IMPRESSION: Mild pulmonary vascular congestion with a moderate left-sided pleural effusion. Labs Labs: Laboratory Tests 05/04/25 05:20 05/04/25 05:20 Calcium 8.6 Phosphorus 5.9 H Iron 34 L TIBC 287 % Saturation 12 L Ferritin 17.10 Total Bilirubin 0.4 AST 19 ALT 11 Alkaline Phosphatase 111 Total Protein 5.8 L Albumin 3.1 L Vitamin B12 > 1000.0 H Folate 4.1 Microbiology 05/01/25 03:44 Blood Blood Culture - Preliminary 05/01/25 04:26 Blood Blood Culture - Preliminary 05/01/25 10:18 Pleural Fluid Aerobic Culture - Preliminary 05/01/25 10:18 Pleural Fluid Gram Stain - Final
--- NOTE | 2025-05-04 13:50 | P.CDI_ITS ---
CDI Query Clarification Request 1) please clarify if CHF has been ruled in or out 2) If ruled in Please specify type and acuity of heart failure if known. * Acute * Chronic * Acute on Chronic * Unknown * Systolic * Diastolic * Combined Systolic and Diastolic * Unknown The medical chart reflects the following: (1) Pleural effusion: Code(s): J90 - Pleural effusion, not elsewhere classified Status: Acute Assessment and Plan: Symptoms: orthopnea and BLE edema extending to knee Possible new CHF dx vs third spacing secondary to ARF - D dimer elevated at 2.64, likely inflammatory response secondary to effusion Patient not hypoxic, heart rate normal, no recent immobilization, no malignancy. Wells Criteria shows low risk 1.3% PE risk. - BNP: 2110 - Chest XR showed interval development of a large left sided pleural effusion. - Echo showed LVEF 60-65% with grade I diastolic dysfunction - BLE edema worse L>R, prior left foot surgery with screws so L chronically worse than R Doppler ordered to rule out DVT: negative - Patient endorsed abdomen bloating/swelling on 05/02. Abdominal US unremarkable. - Monitor vital signs, I&Os, BUN/creatinine, daily weights, neuro status and patient is a fall risk - Monitor serum electrolytes, Keep serum Potassium>4 and serum Magnesium>2 and CBC - Lasix 40 mg IV daily, ordered per nephrology - Patient current smoker possibility of underlying cancer causing effusion however no other related symptoms. - S/p thoracentesis on 05/[address] Driver resulting in 700 ml thin yellow fluid removed pleural fluid studies: Gram stain showing no WBC or organisms. Cultures pending - Nephrology consulted for cocurrent CKD The fact that her heart function is normal suggest that all of this is from her kidneys between the poor kidney function and her large amount of protein in the urine. Continue lasix to prevent effusion recurrence and repeat chest xr tomorrow See Stage 5 CKD plan #3 below. ECHO Summary 1. Complete two-dimensional, color flow and Doppler transthoracic echocardiogram is performed. 2. Left ventricular chamber dimension is normal. 3. Left ventricular systolic function is normal, estimated at 60-65. 4. There is mild concentric increased left ventricular wall thickness. 5. The left ventricular diastolic function is grade I diastolic dysfunction. 6. E/e' 20 is elevated. 7. There is mild aortic valve sclerosis. 8. No pulmonary hypertension, estimated pulmonary arterial systolic pressure is 31 mmHg. 9. There is large pericardial effusion located posteriorly at 3.0 cm thickness, moderate amount located lateral and on right side, and small apically. BNP 2110 Lasix 40 mg IV daily <Anna Sousa RN - Last Filed: 05/04/25 13:53> Clarified Diagnosis Clarified Diagnosis: acute diastolic <Kelsey Kelly PA-C - Last Filed: 05/04/25 16:28>
[2025-05-04 13:57] VITALS: BP 164/67; PULSE 77; RESP 18; TEMP 36.3; O2SAT 97
--- NOTE | 2025-05-04 15:15 | P.DS_ITS ---
DS: Admitting Diagnosis Discharge Date 05/04/2025 Admitting Diagnosis Pleural effusion Anemia Stage 5 chronic kidney disease Hypertension DS: Discharge Diagnosis Discharge Diagnosis (1) Pleural effusion: Code(s): J90 - Pleural effusion, not elsewhere classified Status: Acute (2) Anemia: Code(s): D64.9 - Anemia, unspecified Status: Acute (3) Stage 5 chronic kidney disease: Code(s): N18.5 - Chronic kidney disease, stage 5 Status: Acute (4) Hypertension: Code(s): I10 - Essential (primary) hypertension Status: Acute DS: Summary Hospital Course Reason for hospitalization: Pleural effusion Anemia Stage 5 chronic kidney disease Hypertension Hospital Course: 79 year old female with past medical history of lymphocytic colitis, arterial vascular disease, arthritis, chronic kidney disease, depression, high cholesterol, and hypertension presents to the hospital for shortness of breath that had been ongoing for several weeks. Patient was not meeting sepsis criteria on admission. D dimer elevated at 2.64, likely inflammatory response secondary to effusion. Patient not hypoxic, heart rate normal, no recent immobilization, no malignancy. Wells Criteria shows low risk 1.3% PE risk. Patient found to be in acute renal failure on admission and Nephrology was consulted. Chest XR showed interval development of a large left sided pleural effusion. Patient underwent a thoracentesis on 05/[address] Driver resulting in 700 ml thin yellow fluid removed. Gram stain was showing no white blood cells or organisms present. Patient was also endorsing bilateral lower extremity edema, Doppler was negative for DVT. She also endorsed abdominal bloating/swelling, abdominal ultrasound unremarkable. An echo was obtained and showed an LVEF of 60-65% with grade 1 diastolic dysfunction. Given the fact that the heart function is normal likely the volume overload secondary to patient's poor kidney function. Nephrology was in agreement with continuing patient's Lasix. Repeat chest x-ray showed mild pulmonary vascular congestion with a moderate left-sided pleural effusion. Patient remained on room air throughout admission and stated that she was feeling better denying any shortness of breath. She will remain on oral Lasix at time of discharge. Nephrology states that they will call and reassess patient and see if any diuretic changes are necessary in the near future. Patient was also noted to be anemic with stable hemoglobin levels. She denied any hematuria, melena, hematochezia or hematemesis. She received 2 doses of IV iron and epogen by Nephrology. Started on iron supplementations at discharge. Patient to obtain a CBC in 1 week to reassess. Prior to discharge discussed patient with nephrology Dr. Vargas who is in agreement with discharge at this time. He states that the fluid overload is likely related to patients current renal function which he plans to monitor in the outpatient setting. He is agreeable to continuing the diuretic at this time given the continued effusion on repeat imaging and will touch base with patient to reassess edema and shortness of breath, adjusting the medication as needed. Patient to obtain a BMP in 1 week to reassess renal function. Patient had no complaints at time of discharge denying any chest pain, shortness a breath, palpitations, nausea/vomiting, abdominal pain. Patient was able to ambulate throughout the room throughout admission and did not endorse any dizziness/lightheadedness. Patient discharged home with family in a stable condition. She is to follow up with her primary care provider in 1 week and Nephrology as scheduled. Status at Discharge Functional status at discharge: uses cane/walker Time Spent with Patient Time attestation: Total time spent providing and/or coordinating discharge services: Time spent: Greater than 30 minutes Exam Narrative: AF HR 80 RR 20 SpO2 96 BP 151/64 General: female in no acute respiratory distress who is nontoxic appearing, sitting on cough HEENT: Normocephalic. Atraumatic. Extraocular movement intact. Sclera clear and anicteric. No facial asymmetry. Chest: Lungs are clear to right and clear to the upper left lung with slight coarseness to the left lung base. Speaking full sentences. CV: Heart was regular rate and rhythm. Abd: Abdomen was soft. Nontender. Nondistended. Positive bowel sounds. Ext: No clubbing, cyanosis. DP pulses bilaterally. 1+ pitting edema extending to the knees bilaterally, worse on L>R. No redness or pain. Neuro: Patient is alert and oriented x4. Speech is clear. DS: Data Data Completed and Pending Completed studies during hospitalization: chest xr abdomen us venous doppler renal us thoracentesis us chest xr chest xr Pending studies at discharge: Pending at discharge 05/01/25 03:06 Cytology [PTH] Routine Labs on day of discharge: Labs from last 24 hours 05/04/25 05/04/25 05/03/25 05:20 05:19 22:30 WBC 7.3 RBC 2.86 L Hgb 7.7 L Hct 25.2 L MCV 88.1 MCH 26.9 MCHC 30.6 L RDW 14.1 Plt Count 270 MPV 10.5 H Sodium 134 L Potassium 4.1 Chloride 106 Carbon Dioxide 20 L Anion Gap 8 BUN 43 H Creatinine 4.95 H Estim Creat Clear Calc 9 Estimated GFR 8 L Glucose 88 Calcium 8.6 Phosphorus 5.9 H Iron 34 L TIBC 287 % Saturation 12 L Ferritin 17.10 Total Bilirubin 0.4 AST 19 ALT 11 Alkaline Phosphatase 111 Total Protein 5.8 L Albumin 3.1 L Vitamin B12 > 1000.0 H Folate 4.1 Ur 24 Hour Volume 1600 Urine Creatinine 50.6 Ur Creatinine 24 Hour 0.8 Preliminary micro results at discharge 05/01/25 03:44 Blood Culture - Preliminary Blood 05/01/25 04:26 Blood Culture - Preliminary Blood 05/01/25 10:18 Aerobic Culture - Preliminary Pleural Fluid Discharge Plan Discharge Attending physician on discharge: Jose Carlos Carrero Consulting providers: Kelsey Kelly; Dk Nolan Discharging Clinician: Kelsey Kelly Anticipated Discharge Date/Time: 05/04/25 14:59 Patient Disposition: Home Activity: as tolerated Diet: as tolerated and renal Discharge Instructions: Discharge disposition: Patient admitted to the hospital for shortness of breath related to fluid accumulation on the lung During admission patient found to have worsening renal function Evaluated by nephrology The fluid overload causing the lower extremity swelling and fluid build up likely related to current renal function Continue Lasix 40 mg daily, attached is information on this medication Continue ja hose/compression socks for lower extremity swelling Obtain a blood draw in 1 week to assess kidney function Follow up with nephrology Remain active Monitor urine output Daily weights, if you gain more than 3 lb within 1 day or 5 lb in 1 week notify your primary care provider or nephrology as adjustment to the lasix may need to be made Patient remains anemic, however blood levels remain stable Continue iron supplementation, attached is information on this medication Obtain a blood draw in 1 week to reassess anemia Blood pressures have been elevated during admission Continue to monitor blood pressures at home and document them for PCP follow up Take caution while standing, rising, or moving Change positions slowly taking a break between each position change If you standing feel dizzy sit back down and take a break Encouraged to continue with yearly vaccinations Return to the emergency department if he developed sudden shortness of breath, chest pain, nausea, vomiting, upset stomach or intractable diarrhea Return to the emergency department if you develop fever greater than 100.5 Follow-up with the primary care physician within 1-2 weeks Thank you for [facility] for your healthcare needs Patient Instructions: Iron Supplements (By mouth), Furosemide (By mouth), Chronic Kidney Disease (DC), Dialysis Nutrition Plan (DC), Iron Deficiency Anemia (GEN), Pleural Effusion (DC), End Stage Kidney Disease (DC) Patient Language: Mongolian Stand Alone Forms: General Discharge Information Follow-up/Referrals: Darwin Vargas MD [Physician] - Call for Appointment Nicolás Dey MD [Primary Care Provider] - 1 Week Discharge Medications: New furosemide [Lasix] 40 mg tablet 40 mg PO DAILY Qty: 30 0RF ferrous sulfate 325 mg (65 mg iron) tablet 325 mg PO DAILY Qty: 30 0RF Continued lovastatin 40 mg tablet 40 mg PO DAILY aspirin [Adult Aspirin Regimen] 81 mg tablet,delayed release (DR/EC) 81 mg PO DAILY sertraline 100 mg tablet 100 mg PO HS calcium carbonate-vitamin D3 600 mg-10 mcg (400 unit) tablet 1 tablet PO BID gabapentin 300 mg capsule 300 mg PO BID mecobalamin (vitamin B12) 1,000 mcg tablet,chewable 1,000 mcg PO DAILY diltiazem HCl 240 mg capsule,extended release 24hr 240 mg PO DAILY cholecalciferol (vitamin D3) 50 mcg (2,000 unit) capsule 50 mcg PO DAILY prednisolone acetate 1 % drops,suspension 1 drp RIGHT EYE Q8H ketorolac 0.4 % drops 1 drp RIGHT EYE TID amoxicillin 250 mg capsule 250 mg PO Q12H loperamide [Anti-Diarrheal (loperamide)] 2 mg capsule 2 mg PO DAILY PRN (Reason: loose stool) hydralazine 25 mg tablet See Rx Instructions .ROUTE .COMPLEX Qty: 180 3RF Dose Instruction: TAKE 1 TABLET BY MOUTH TWICE A DAY Rx Instructions: TAKE 1 TABLET BY MOUTH TWICE A DAY Other Ambulatory Orders: Basic Metabolic Panel (Routine) Timeframe: 1 Week Location: Determined by Patient Ordered By: Kelsey Kelly Complete Blood Count no Diff (Routine) Timeframe: 1 Week Location: Determined by Patient Ordered By: Kelsey Kelly Date of admission: 05/01/25 09:05 Primary Care Provider: Nicolás Dey Admitting Provider: Tram Callahan Attending physician on admission: Tram Callahan Condition: Stable Hospitalist MIPS Heart Failure (Exclusion) Patient has history of Heart Transplant or Left Ventricular Assistive Device?: No IF YES, STOP HERE Heart Failure (Qualifier) Patient has current or prior documentation of LVEF less than or equal to 40%, or mod/servere depressed LVSF?: No IF NO, STOP HERE
[2025-05-04] MEDS: LOVASTATIN 20 MG TABLET 40 MG PO (16:37)
== END 2025-05-04 17:13 | disposition home or self-care (01) | DRG 291 ==
LOC: ANHED 05-01 01:40 → ANH3MEDSUR 05-01 05:24
PROVIDERS: Internal Medicine Nephrology; Student in an Organized Health Care Education/Training Program; Admitting Provider General Practice; Emergency Provider Physician Assistant; PCP Family Medicine; Visit Provider Student in an Organized Health Care Education/Training Program
DX: I13.2 Hypertensive heart and chronic kidney disease with heart failure and with stage 5 chronic kidney disease, or end stage renal disease (principal); I50.31 Acute diastolic (congestive) heart failure; J91.8 Pleural effusion in other conditions classified elsewhere; N18.5 Chronic kidney disease, stage 5; N25.81 Secondary hyperparathyroidism of renal origin; N17.9 Acute kidney failure, unspecified; D64.9 Anemia, unspecified; M19.90 Unspecified osteoarthritis, unspecified site; F17.210 Nicotine dependence, cigarettes, uncomplicated
CPT/HCPCS: 32555; 36415; 71045; 76705; 76775; 80053; 81001; 81050; 82550; 82570; 82607; 82728; 82746; 82945; 83540; 83550; 83605; 83735; 83880; 84100; 84156; 84157; 84300; 84484; 84540; 85025; 85027; 85380; 85610; 85730; 87040; 87086; 87205; 88108; 88305; 88342; 89051; 93005; 93306; 93970; 96365; 96375; 97161; 97165; 99285; A9270; G0378; J0696; J1756; J1938; Q5105

== ENCOUNTER 2025-05-08 09:19 | Outpatient (CLI) | payer MEDICARE, SELFPAY ==
--- OUTSIDE RECORDS SUMMARY | 2025-05-08 09:22 | XMS_ITS | Clinical Summary ---
Author Organization [facility] Address [address] [place] [address] Phone Care Team Providers Care Library Media Specialist Name Role Phone Nicolás Dey MD Primary Care Provider [phone] Allergies No known active allergies Medications calcium [...] on file Legal Sex Female 7:47 AM [facility] Gender Identity Not on file [...] 2025 09/11/2016 Insurance [employer] MEDICARE Care Teams Library Media Specialist Relationship Specialty Start Date End Date Nicolás Dey MD [address] [place] [address] [place] [address] PCP - General Internal Medicine 04/01/19
--- OUTSIDE RECORDS SUMMARY | 2025-05-08 09:22 | XMS_ITS | Patient Health Record ---
Author Organization [facility] Address [address] [facility] [address] [facility] [address] [place] [address] Care Team Providers Care Zipper Repairer Name Role Phone JENI LOPEZ Unavailable [phone] Reason For Referral No Information Plan Of Treatment No Information Insurance Providers Payer Name Payer Address Payer Phone Subscriber Number Group Number Insured Name Patient Relationship to Insured Coverage Start Date Coverage End Date [place] [address] [address] [place], [place] [id number] AditiAugusten Self - patient is the insured 9 [place] [address] [place], [place] [id number] Aditi Juliana Self - patient is the insured 9 [facility] FINANCIAL [facility] [place] [address] [id number] PLAN F AditiAugusten Self - patient is the insured 9
[2025-05-08 09:50] LABS: Hematocrit 28.0 % (35.0-42.0); Hemoglobin 8.6 g/dL (11.7-13.8); Mean Corpuscular HGB Conc 30.7 g/dL (32-36); Mean Corpuscular Hemoglobin 27.0 pg (27.0-31.0); Mean Corpuscular Volume 87.8 fL (78.0-102.0); Platelet Count Result 316 K/mm3 (150-420); Red Blood Count 3.19 M/mm3 (4.20-5.40); White Blood Count 8.1 K/mm3 (4.8-10.8)
[2025-05-08 10:39] LABS: Albumin Level 3.8 g/dL (3.5-5.1); Anion Gap 9 mmol/L (4-12); Blood Urea Nitrogen 51 mg/dL (7-17); Calcium 8.7 mg/dL (8.4-10.2); Carbon Dioxide 21 mmol/L (22-30); Chloride 110 mmol/L (98-107); Estimated Glomerular Filt Rate 8; Glucose 94 mg/dL (65-110); Osmolality Calculated 303 mOsm/kg (285-295); Potassium 4.3 mmol/L (3.4-5.0); Sodium 140 mmol/L (137-145)
[2025-05-08 12:18] LABS: Total Protein Urine Random > 600 mg/dL
[2025-05-08 12:19] LABS: Ur Ttl Prot Creatinine Ratio 6.24 mg/mg (0-0.20)
== END 2025-05-08 09:20 | disposition home or self-care (01) ==
LOC: CHSLAB 09:20
PROVIDERS: Student in an Organized Health Care Education/Training Program; PCP Family Medicine; Visit Provider Internal Medicine Nephrology
DX: D64.9 Anemia, unspecified (principal); N25.81 Secondary hyperparathyroidism of renal origin; E55.9 Vitamin D deficiency, unspecified; N18.5 Chronic kidney disease, stage 5; I12.9 Hypertensive chronic kidney disease with stage 1 through stage 4 chronic kidney disease, or unspecified chronic kidney disease
CPT/HCPCS: 36415; 80069; 82306; 82570; 84156; 85027

== ENCOUNTER 2025-05-15 09:09 | Outpatient (CLI) | payer MEDICARE, SELFPAY ==
--- NOTE | 2025-05-15 | CONSULT_PTH ---
PATIENT: Juliana Pennington LOC: [facility]#:[id number] AGE/SX: 79/F ROOM: RE05/15/[address]: Darwin Vargas MD : [id number] BED: DIS: 05/15/2025 SPEC #: [id number] RECD: 05/15/25 10:19 STATUS: AKIKO REQ #: [id number] EDY: 05/15/25 00:[address]: Darwin Vargas DEPT: [facility] Consult RECD BY: Maral Bonilla MLT, [facility] ENTERED: 05/15/25 10:20 SP TYPE: Consult OTHR DR: Nicolás Dey MD Tissues: A - Peripheral Smear Procedures: Hematology Consult
--- OUTSIDE RECORDS SUMMARY | 2025-05-15 09:14 | XMS_ITS | Patient Health Record ---
Author Organization [facility] Address [address] [facility] [address] [facility] [address] [place] [address] Care Team Providers Care Graphic Specialist Name Role Phone JENI LOPEZ Unavailable [phone] Reason For Referral No Information Plan Of Treatment No Information Insurance Providers Payer Name Payer Address Payer Phone Subscriber Number Group Number Insured Name Patient Relationship to Insured Coverage Start Date Coverage End Date [place] [address] [address] [place], [place] [id number] AditiAugusten Self - patient is the insured 9 [place] [address] [place], [place] [id number] Aditi Juliana Self - patient is the insured 9 [facility] FINANCIAL [facility] [place] [address] [id number] PLAN F AditiAugusten Self - patient is the insured 9
--- OUTSIDE RECORDS SUMMARY | 2025-05-15 09:14 | XMS_ITS | Clinical Summary ---
Author Organization [facility] Address [address] [place] [address] Phone Care Team Providers Care Geophysicist Name Role Phone Nicolás Dey MD Primary Care Provider [phone] Allergies No known active allergies Medications calcium [...] on file Legal Sex Female 7:47 AM [email or web address] Gender Identity Not on file Sexual Orientation [...] 2025 09/11/2016 Insurance [employer] MEDICARE Care Teams Geophysicist Relationship Specialty Start Date End Date Nicolás Dey MD [address] [place] [address] [place] [address] PCP - General Internal Medicine 04/01/19
[2025-05-15 09:46] LABS: Hematocrit 28.5 % (35.0-42.0); Hemoglobin 8.8 g/dL (11.7-13.8); Mean Corpuscular HGB Conc 30.9 g/dL (32-36); Mean Corpuscular Hemoglobin 27.3 pg (27.0-31.0); Mean Corpuscular Volume 88.5 fL (78.0-102.0); Platelet Count Result 308 K/mm3 (150-420); Red Blood Count 3.22 M/mm3 (4.20-5.40); White Blood Count 7.3 K/mm3 (4.8-10.8)
[2025-05-15 09:55] LABS: Hemoglobin A1C < 4.7 % (<5.7)
[2025-05-15 09:59] LABS: MALB Creatinine Ratio 359.8 mg/g (0-30)
[2025-05-15 10:04] LABS: Immature Granulocyte Percent A 0.5 % (0.0-0.0); Lymphocytes Absolute Auto 0.82 K/mm3 (1.10-4.50); Nucleated Red Blood Cells Absolute Auto 0.00 K/mm3 (0.00-0.00); Nucleated Red Blood Cells Perc 0.0 % (0-0.0)
[2025-05-15 10:07] LABS: Anion Gap 11 mmol/L (4-12); Blood Urea Nitrogen 60 mg/dL (7-17); Calcium 9.3 mg/dL (8.4-10.2); Carbon Dioxide 19 mmol/L (22-30); Chloride 111 mmol/L (98-107); Estimated Glomerular Filt Rate 7; Glucose 101 mg/dL (65-110); Osmolality Calculated 308 mOsm/kg (285-295); Potassium 4.7 mmol/L (3.4-5.0); Sodium 141 mmol/L (137-145)
== END 2025-05-15 09:10 | disposition home or self-care (01) ==
LOC: CHSLAB 09:12
PROVIDERS: PCP Family Medicine; Visit Provider Internal Medicine Nephrology
DX: I10 Essential (primary) hypertension (principal); D64.9 Anemia, unspecified; H35.61 Retinal hemorrhage, right eye; R79.9 Abnormal finding of blood chemistry, unspecified
CPT/HCPCS: 36415; 80048; 82043; 83036; 83970; 85025

== ENCOUNTER 2025-05-20 10:30 | Outpatient (CLI) | payer MEDICARE, SELFPAY ==
--- NOTE | ~2025-05-20 | XR_ITS ---
XR chest 2V 05/20/2025 10:48 Indication: Pleural effusion Procedure: 2 view chest Comparison: Comparison to multiple prior studies sequentially, with oldest reviewed study dated 01/28. Findings: Small left pleural effusion. Left lower lobe airspace disease may represent atelectasis or pneumonia. Spinal stimulator leads are present overlying the mid thoracic spine. Cardiomegaly. Impression: 1: Left lower lobe airspace disease may represent atelectasis or pneumonia. 2: Small left pleural effusion. Reviewed, dictated and finalized at location A. Impression: 1: Left lower lobe airspace disease may represent atelectasis or pneumonia. 2: Small left pleural effusion.
--- OUTSIDE RECORDS SUMMARY | 2025-05-20 10:44 | XMS_ITS | Clinical Summary ---
Author Organization [facility] Address [address] [place] [id number] Phone Care Team Providers Care Power Lineworker Name Role Phone Nicolás Dey MD Primary Care Provider [phone] Allergies No known active allergies Medications calcium [...] on file Legal Sex Female 7:47 AM [facility] Gender Identity Not on file [...] 2025 09/11/2016 Insurance CIGNA MEDICARE Care Teams Power Lineworker Relationship Specialty Start Date End Date Nicolás Dey MD [address] [place] [address] [place] [address] PCP - General Internal Medicine 04/01/19
--- OUTSIDE RECORDS SUMMARY | 2025-05-20 10:45 | XMS_ITS | Patient Health Record ---
Author Organization [facility] Address [address] [facility] [address] [facility] [address] [place] [address] Care Team Providers Care Pastry Chef Name Role Phone JENI LOPEZ Unavailable [phone] Reason For Referral No Information Plan Of Treatment No Information Insurance Providers Payer Name Payer Address Payer Phone Subscriber Number Group Number Insured Name Patient Relationship to Insured Coverage Start Date Coverage End Date [place] [address] [address] [place], [place] [id number] AditiAugusten Self - patient is the insured 9 [place] [address] [place], [place] [id number] Aditi Juliana Self - patient is the insured 9 [facility] FINANCIAL [facility] [place] [address] [id number] PLAN F AditiAugusten Self - patient is the insured 9
== END 2025-05-20 10:31 | disposition home or self-care (01) ==
PROVIDERS: PCP Family Medicine; Visit Provider Internal Medicine Nephrology
DX: J90 Pleural effusion, not elsewhere classified (principal); R91.8 Other nonspecific abnormal finding of lung field
CPT/HCPCS: 71046

== ENCOUNTER 2025-06-22 08:11 | Outpatient (CLI) | payer MEDICARE, SELFPAY ==
--- NOTE | ~2025-06-22 | XR_ITS ---
Examination: XR chest 2V Clinical History: pleural effusion in other conditions elsewhere Comparison: 05/20/2025 Technique: PA and Lateral Findings: Cardiomegaly. Persistent left pleural effusion with associated basilar opacity. No acute bony abnormality. Spinal stimulator leads. IMPRESSION: 1. No significant change from one month prior. 2. Left pleural effusion with associated basilar atelectasis and/or airspace disease. Reviewed, dictated and finalized at location R. IMPRESSION: 1. No significant change from one month prior. 2. Left pleural effusion with associated basilar atelectasis and/or airspace d isease.
--- OUTSIDE RECORDS SUMMARY | 2025-06-22 08:42 | XMS_ITS | Clinical Summary ---
Author Organization [facility] Address [address] [place] [address] Phone Care Team Providers Care Budget Technician Name Role Phone Nicolás Dey MD Primary Care Provider [phone] Allergies No known active allergies Medications calcium [...] 2025 09/11/2016 Insurance CIGNA MEDICARE Care Teams Budget Technician Relationship Specialty Start Date End Date Nicolás Dey MD [address] [place] [address] [place] [address] PCP - General Internal Medicine 04/01/19
--- OUTSIDE RECORDS SUMMARY | 2025-06-22 08:42 | XMS_ITS | Clinical Summary ---
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 Gender Identity Not on file Sexual Orientation [...] 76.7 kg (169 lb) 08/14/2023 8:57 AM ELECTRONICS INSTALLER Height 170.2 cm (5' 7) 08/14/2023 8:57 AM ELECTRONICS INSTALLER Body Mass Index 26.47 08/14/2023 8:57 AM ELECTRONICS INSTALLER Plan of Treatment Health Maintenance Due Date [...] COVID-19 Vaccine (1 - 2023-2 5 season) 2025 Meningococcal B Vaccine Aged Out No l onger eligible based on patient's age to complete this topic Meningococcal Vaccine Aged Out No sarah marcia eligible based on patient's age to complete this topic RSV Immunizations Under 20 Months Aged Out No longer eligible b ased on patient's age to complete this topic Medical Devices Implanted Type Area Patent Paralegal Device Identifier Shelf Expiration Date Model / Serial / Lot Screw Bone 8mm 50mm 25mm Asnis Iii Titanium Orthopedic Self Tapping Self Drilling Cannulated - [id number] Implanted:Qty: 2 on 10/10/2022 by Walter Rawls MD at [facility] Screw Left: Ankle [employer] - DIV TEMI MARLEN [id number] / / Pain Stimulator Description:PAIN STIMULATOR IN LOWER BACK ON THE LEFT SIDE 3.2 Guide Pin Implanted:Qty: 2 on 10/10/2022 by Walter Rawls MD at [facility] Left: Ankle [id number] / / Washer 8.0 Implanted:Qty: 2 on 10/10/2022 by Walter Rawls MD at [facility] Left: Ankle [id number] / / 8.0x120 Cannulated Screw Implanted:Qty: 2 on 10/10/2022 by Watler Rawls MD at [facility] Left: Ankle [id number] / / Explanted Type Area Patent Paralegal Device Identifier Shelf Expiration Date Model / Serial / Lot Guide Wire, Smooth Explanted:Qty: 1 on 07/24/2023 by Walter Rawls MD at [facility] Left: Ankle [employer] - DIV TEMI MARLEN [id number] / / Insurance MEDICARE MEDICARE LIFE INSURANCE Care Teams Corporation Pilot Relationship Specialty Start Date End Date Nicolás Dey MD [address] [place], [place] [id number] PCP - General FAMILY PRACTICE 10/10/19
--- OUTSIDE RECORDS SUMMARY | 2025-06-22 08:42 | XMS_ITS | Patient Health Record ---
Author Organization [facility] Address [address] [place] [address] Care Team Providers Care Vacuum Form Operator Name Role Phone JENI LOPEZ Unavailable [phone] Reason For Referral No Information Plan Of Treatment No Information Insurance Providers Payer Name Payer Address Payer Phone Subscriber Number Group Number Insured Name Patient Relationship to Insured Coverage Start Date Coverage End Date [place] [address] [address] [place], [place] [id number] AditiAugusten Self - patient is the insured 9 [place] [address] [place], [place] [id number] Aditi Juliana Self - patient is the insured 9 [facility] FINANCIAL [address] [place] [address] [id number] PLAN F AditiAugusten Self - patient is the insured 9
[2025-06-22 09:40] LABS: Albumin Level 3.8 g/dL (3.5-5.1); Anion Gap 15 mmol/L (4-12); Blood Urea Nitrogen 61 mg/dL (7-17); Calcium 9.6 mg/dL (8.4-10.2); Carbon Dioxide 19 mmol/L (22-30); Chloride 112 mmol/L (98-107); Estimated Glomerular Filt Rate 7; Glucose 97 mg/dL (65-110); Osmolality Calculated 319 mOsm/kg (285-295); Potassium 4.6 mmol/L (3.4-5.0); Sodium 146 mmol/L (137-145)
[2025-06-23 07:09] LABS: Hep B Core Ab, Total Negative (Negative)
== END 2025-06-22 08:12 | disposition home or self-care (01) ==
LOC: CHSLAB 08:13
PROVIDERS: PCP Family Medicine; Visit Provider Internal Medicine Nephrology
DX: R10.11 Right upper quadrant pain (principal); R94.5 Abnormal results of liver function studies; R53.83 Other fatigue; R79.89 Other specified abnormal findings of blood chemistry; I12.9 Hypertensive chronic kidney disease with stage 1 through stage 4 chronic kidney disease, or unspecified chronic kidney disease; N18.5 Chronic kidney disease, stage 5; J91.8 Pleural effusion in other conditions classified elsewhere; J98.11 Atelectasis
CPT/HCPCS: 36415; 71046; 80069; 86480; 86704; 86706; 87340

== ENCOUNTER 2025-07-09 12:50 | Outpatient (CLI) | payer MEDICARE, SELFPAY ==
--- OUTSIDE RECORDS SUMMARY | 2025-07-09 12:56 | XMS_ITS | Clinical Summary ---
Author Organization [facility] Address [address] [place] [address] Phone Care Team Providers Care Fight Manager Name Role Phone Nicolás Dey MD Primary Care Provider [phone] Allergies No known active allergies Medications calcium [...] on file Legal Sex Female 7:47 AM [facility] Gender Identity Not on file Sexual Orientation [...] 2025 09/11/2016 Insurance CIGNA MEDICARE Care Teams Fight Manager Relationship Specialty Start Date End Date Nicolás Dey MD [address] [place] [address] [place] [address] PCP - General Internal Medicine 04/01/19
--- OUTSIDE RECORDS SUMMARY | 2025-07-09 12:56 | XMS_ITS | Clinical Summary ---
Author Organization 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 Gender Identity Not on file Sexual Orientation [...] 76.7 kg (169 lb) 08/14/2023 8:57 AM OPERATIONS SUPERVISOR Height 170.2 cm (5' 7) 08/14/2023 8:57 AM OPERATIONS SUPERVISOR Body Mass Index 26.47 08/14/2023 8:57 AM OPERATIONS SUPERVISOR Plan of Treatment Health Maintenance Due Date [...] Vaccine (1 - 2023-2 5 season) 2025 Influenza Adult (#1) 2025 07/21/2019, 09/11/2016 Meningococcal B Vaccine Aged Out No l onger eligible based on patient's age to complete this topic Meningococcal Vaccine Aged Out No sarah marcia eligible based on patient's age to complete this topic RSV Immunizations Under 20 Months Aged Out No longer eligible b ased on patient's age to complete this topic Medical Devices Implanted Type Area Rn Recovery Device Identifier Shelf Expiration Date Model / Serial / Lot Screw Bone 8mm 50mm 25mm Asnis Iii Titanium Orthopedic Self Tapping Self Drilling Cannulated - [id number] Implanted:Qty: 2 on 10/10/2022 by Walter Rawls MD at [facility] Screw Left: Ankle [employer] - DIV TEMI MARLEN [id number] / / Pain Stimulator Description:PAIN STIMULATOR IN LOWER BACK ON THE LEFT SIDE 3.2 Guide Pin Implanted:Qty: 2 on 10/10/2022 by Walter Rawls MD at [facility] Left: Ankle [id number] / / Washer 8.0 Implanted:Qty: 2 on 10/10/2022 by Walter Rawls MD at [facility] Left: Ankle [id number] / / 8.0x120 Cannulated Screw Implanted:Qty: 2 on 10/10/2022 by Walter Rawls MD at [facility] Left: Ankle [id number] / / Explanted Type Area Rn Recovery Device Identifier Shelf Expiration Date Model / Serial / Lot Guide Wire, Smooth Explanted:Qty: 1 on 07/24/2023 by Walter Rawls MD at [facility] Left: Ankle [employer] - DIV TEMI MARLEN [id number] / / Insurance MEDICARE MEDICARE [facility] Care Teams Methane Gas Collection System Operator Relationship Specialty Start Date End Date Nicolás Dey MD [address] [place] [address] PCP - General FAMILY PRACTICE 07/17/19
--- OUTSIDE RECORDS SUMMARY | 2025-07-09 12:56 | XMS_ITS | Patient Health Record ---
Author Organization [facility] Address [address] [place] [address] Care Team Providers Care Audiovisual Lead Technician Name Role Phone JENI LOPEZ Unavailable [phone] Reason For Referral No Information Plan Of Treatment No Information Insurance Providers Payer Name Payer Address Payer Phone Subscriber Number Group Number Insured Name Patient Relationship to Insured Coverage Start Date Coverage End Date [place] [address] [address] [place], [place] [id number] AditiAugusten Self - patient is the insured 9 [place] [address] [place], [place] [id number] Aditi Juliana Self - patient is the insured 9 [facility] FINANCIAL [address] [place] [address] [id number] PLAN F AditiAugusten Self - patient is the insured 9
--- OUTSIDE RECORDS SUMMARY | 2025-07-09 12:56 | XMS_ITS ---
Author Organization [facility] Address [address] [place] [address] Care Team Providers Care Consumer Insight Manager Name Role Phone Unavailable Unavailable Unavailable Allergies, Adverse Reactions, Alerts This patient has no known allergies or adverse reactions. Problems This patient has no known problems.
== END 2025-07-09 12:51 | disposition home or self-care (01) ==
LOC: ANHAUDASC 12:51
PROVIDERS: PCP Family Medicine; Visit Provider Otolaryngology
DX: H90.3 Sensorineural hearing loss, bilateral (principal); H66.92 Otitis media, unspecified, left ear
CPT/HCPCS: 92557; 92567

== ENCOUNTER 2025-08-25 09:04 | Outpatient (CLI) | payer MEDICARE, SELFPAY ==
[2025-08-25 09:25] LABS: Hematocrit 32.3 % (35.0-42.0); Hemoglobin 9.9 g/dL (11.7-13.8); Mean Corpuscular HGB Conc 30.7 g/dL (32-36); Mean Corpuscular Hemoglobin 28.4 pg (27.0-31.0); Mean Corpuscular Volume 92.8 fL (78.0-102.0); Platelet Count Result 305 K/mm3 (150-420); Red Blood Count 3.48 M/mm3 (4.20-5.40); White Blood Count 10.6 K/mm3 (4.8-10.8)
[2025-08-25 09:39] LABS: Alanine Aminotransferase 18 U/L (6-35); Albumin Level 3.7 g/dL (3.5-5.1); Alkaline Phosphatase 136 U/L (38-126); Anion Gap 15 mmol/L (4-12); Aspartate Amino Transferase 26 U/L (14-36); Bilirubin,Total 0.3 mg/dL (0.2-1.3); Blood Urea Nitrogen 41 mg/dL (7-17); Calcium 9.0 mg/dL (8.4-10.2); Carbon Dioxide 26 mmol/L (22-30); Chloride 103 mmol/L (98-107); Estimated Glomerular Filt Rate 7; Glucose 95 mg/dL (65-110); Osmolality Calculated 308 mOsm/kg (285-295); Potassium 3.3 mmol/L (3.4-5.0); Sodium 144 mmol/L (137-145); Total Protein 6.0 g/dL (6.3-8.2)
[2025-08-25 10:09] LABS: Thyroid Stimulating Hormone 0.575 uIU/mL (0.465-4.680)
== END 2025-08-25 09:05 | disposition home or self-care (01) ==
LOC: CHSLAB 09:06
PROVIDERS: PCP Family Medicine; Visit Provider Family Medicine
DX: I10 Essential (primary) hypertension (principal)
CPT/HCPCS: 36415; 80053; 84443; 85027

== ENCOUNTER 2025-08-26 10:45 | Outpatient (CLI) | payer MEDICARE, SELFPAY ==
--- NOTE | ~2025-08-26 | XR_ITS ---
EXAMINATION: XR foot LT 2V, 08/26/2025 10:55 GRAVEL MACHINE OPERATOR HISTORY: PAIN IN L FOOT ATTN: TO HARDWARE IN ANKLE AND TO THE COMPARISON: No comparisons available. Findings: Moderate osteopenia. No acute fracture. Postsurgical changes in the ankle. Moderate degenerative changes. Soft tissues unremarkable. Impression: No acute fracture or malalignment. Reviewed, dictated and finalized at location P. EL MACHINE OPERATOR Impression: No acute fracture or malalignment.
--- NOTE | ~2025-08-26 | XR_ITS ---
EXAMINATION: XR ankle LT min 3V DATE: 08/26/2025 11:09 INDICATION: Left foot pain TECHNIQUE: Left ankle x-rays were obtained. COMPARISON: None. FINDINGS: 3 obliquely oriented cancellous screws through the distal tibia, talus and calcaneus with no gross loosening or hardware complication appreciated. Bones appear fused. No obvious acute or aggressive bony or soft tissue process seen in the left ankle. IMPRESSION: As above. Reviewed, dictated and finalized at location A. DIRECTOR IMPRESSION: As above.
--- OUTSIDE RECORDS SUMMARY | 2025-08-26 15:37 | XMS_ITS | Patient Health Record ---
Author Organization [facility] Address [address] [place] [address] Care Team Providers Care Stamping Machine Operator Name Role Phone JENI LOPEZ Unavailable [phone] Reason For Referral No Information Plan Of Treatment No Information Insurance Providers Payer Name Payer Address Payer Phone Subscriber Number Group Number Insured Name Patient Relationship to Insured Coverage Start Date Coverage End Date [place] [address] [address] [place], [place] [id number] AditiAugusten Self - patient is the insured 9 [place] [address] [place], [place] [id number] Aditi Juliana Self - patient is the insured 9 [facility] FINANCIAL [address] [place] [address] [id number] PLAN F AditiAugusten Self - patient is the insured 9
--- OUTSIDE RECORDS SUMMARY | 2025-08-26 15:37 | XMS_ITS | Clinical Summary ---
Author Organization [facility] Address [address] [place] [address] Phone Care Team Providers Care Rehab Nursing Tech Name Role Phone Nicolás Dey MD Primary Care Provider [phone] Allergies No known active allergies Medications calcium [...] on file Legal Sex Female 7:47 AM [facility] Gender Identity Not on file Sexual [...] 2025 09/11/2016 Insurance CIGNA MEDICARE Care Teams Rehab Nursing Tech Relationship Specialty Start Date End Date Nicolás Dey MD [address] [place] [address] [place] [address] PCP - General Internal Medicine 04/01/19
--- OUTSIDE RECORDS SUMMARY | 2025-08-26 15:37 | XMS_ITS | Clinical Summary ---
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 Gender Identity Not on file Sexual Orientation [...] 76.7 kg (169 lb) 08/14/2023 8:57 AM CAD LIBRARIAN Height 170.2 cm (5' 7) 08/14/2023 8:57 AM CAD LIBRARIAN Body Mass Index 26.47 08/14/2023 8:57 AM CAD LIBRARIAN Plan of Treatment Health Maintenance Due Date Last Done Comments DTaP, Tdap and Td Vaccines ( 1 - Tdap) 1963 Zoster Vaccines (1 of 2) 1994 Annual Medicare Wellness Visit 2009 Dexa Scan (General) 2009 Pneumococcal Vaccine: 50+ Years (2 of 2 - PPSV23, PCV20, or PCV21) 11/06/2016 09/11/2016, 08/02/2015 RSV Immunization or 60+ Years (1 - 1-dose 75+ series) 2019 COVID-19 Vaccine (1 - 2024-2 6 season) 2025 Influenza Adult (#1) 2025 07/21/2019, 09/11/2016 Hepatitis A Vaccines Aged Out No long er eligible based on patient's age to complete this topic Meningococcal B Vaccine Aged Out No l onger eligible based on patient's age to complete this topic Meningococcal Vaccine Aged Out No sarah marcia eligible based on patient's age to complete this topic RSV Immunizations Under 20 Months Aged Out No longer eligible b ased on patient's age to complete this topic Medical Devices Implanted Type Area Home Health Administrator Device Identifier Shelf Expiration Date Model / Serial / Lot Screw Bone 8mm 50mm 25mm Asnis Iii Titanium Orthopedic Self Tapping Self Drilling Cannulated - [id number] Implanted:Qty: 2 on 10/10/2022 by Walter Rawls MD at [facility] Screw Left: Ankle [employer] - DIV TEMI MARLEN [id number] / / Pain Stimulator Description:PAIN STIMULATOR IN LOWER BACK ON THE LEFT SIDE 3.2 Guide Pin Implanted:Qty: 2 on 10/10/2022 by Walter Rawls MD at [facility] Left: Ankle [id number] / / Washer 8.0 Implanted:Qty: 2 on 10/10/2022 by Walter Rawls MD at [facility] Left: Ankle [id number] / / 8.0x120 Cannulated Screw Implanted:Qty: 2 on 10/10/2022 by Walter Rawls MD at [facility] Left: Ankle [id number] / / Explanted Type Area Home Health Administrator Device Identifier Shelf Expiration Date Model / Serial / Lot Guide Wire, Smooth Explanted:Qty: 1 on 07/24/2023 by Walter Rawls MD at [facility] Left: Ankle [employer] - DIV [employer]I MARLEN [id number] / / Insurance MEDICARE MEDICARE LIFE INSURANCE Care Teams Compliance Specialist Relationship Specialty Start Date End Date Nicolás Dey MD [address] [place], [place] [id number] PCP - General FAMILY PRACTICE 07/17/19
== END 2025-08-26 10:46 | disposition home or self-care (01) ==
LOC: CHSIMG 10:47
PROVIDERS: PCP Family Medicine; Visit Provider Family Medicine
DX: M79.672 Pain in left foot (principal)
CPT/HCPCS: 73610; 73620

== ENCOUNTER 2025-09-18 15:14 | Outpatient (CLI) | payer MEDICARE, SELFPAY ==
--- OUTSIDE RECORDS SUMMARY | 2025-09-10 05:00 | XMS_ITS ---
Author Organization [facility] Address [address] [place], [place] [id number] Care Team Providers Care Service Delivery Supervisor Name Role Phone KARTHIK COLLADO Unavailable [phone] Nciolás Dey Unavailable Unavailable Allergies No Known Allergies REASON FOR VISIT plantar wart Medications Medication SIG (Take, Route, Fr equency, Duration) Notes Start Date End Date Status Gabapentin Active Furosemide Active Diltiazem CD Active Calcium Active Aspirin 81 Active Brimonidine Tartrate Active Lovastatin Active Loperamide A-D Activ e Ketorolac Tromethamine Active Hydralazine-HCTZ Act willow Calcium Active Social History Tobacco Use: Social History Observation Description Date Details (start date - stop date) Current Smoker 09/09/2015 - NA Social History Drug/Alcohol: Social Info Question Answer Notes AUDIT-C (Standard) Did you have a drink containing alcohol in the past year? No Points 0 Interpretation Negative Tobacco Use: Social Info Question Answer Notes Tobacco Control (Standard) Tobacco use: Current smoker When did you start smoking? 09/09/2015 How often do you smoke cigarettes? Every day How many cigarettes a day do you smoke? 6-10 Vital Signs Height 67 in 09/10/2025 Weight 152 lbs 09/10/2025 BMI 23.8 kg/m2 09/10/2025 Height-cm 170.18 cm 09/10/2025 Weight-kg 68.95 kg 09/10/2025 Encounters Encounter Location Date Provider Diagnosis [address] [id number] 09/10/2025 KARTHIK COLLADO Superficial foreign body, left foot, initial encounter S90.852A ; Pain in left foot M79.672 and Atherosclerosis of [place] arteries of extremities with intermittent claudication, bilateral legs I70.213 Assessments Encounter Date Diagnosis (ICD Code) Assessment Notes Treatment Notes Treatment Clinical Notes Section Notes 09/10/2025 Superficial foreign body, left foot, initial encounter (ICD-10 - S90.852A) cleansed and removed foreign body. Will check in 2 weeks. cleanse and apply triple antibiotic and bandaid daily. 09/10/2025 Pain in left foot (ICD-10 - M79.672) Foreign Body Removal: There is evidence of a foreign body, likely a plastic splinter noted to the left foot. The skin was prepped with alcohol. A #15 blade was used to trim back the callused skin from the area and expose the foreign body. A fiber picker was then used to remove it from the foot in its entirety. Neosporin was then applied. 09/10/2025 Atherosclerosis of [place] arteries of extremities with intermittent claudication, bilateral legs (ICD-10 - I70.213) Patient educated on risks and aggravating factors of PVD, including conservative treatment options such as a diet and exercise regimen to aid in slowing progression of vascular disease. Check and protect LE bilateral daily. Call if any changes or concerns. Plan Of Treatment Treatment Notes Assessment Notes Superficial foreign body, le ft foot, initial encounter cleansed and removed foreign body. Will check in 2 weeks. cleanse and apply triple antibiotic and bandaid daily. Pain in left foot Foreign Body Removal: There is evidence of a foreign body, likely a plastic splinter noted to the left foot. The skin was prepped with alcohol. A #15 blade was used to trim back the callused skin from the area and expose the foreign body. A fiber picker was then used to remove it from the foot in its entirety. Neosporin was then applied. Atherosclerosis of [place] ar teries of extremities with intermittent claudication, bilateral legs Patient educated on risks and aggravatin g factors of PVD, including conservative treatment options such as a diet and exercise regimen to aid in slowing progression of vascular disease. Check and protect LE bilateral daily. Call if any changes or concerns. Next Appt Details Follow Up: 2 Weeks,post op c heck left heel, Reason: Provider Name:KARTHIK VAZQUEZ, 09/24/2025 10:50:00 AM, [address] [place], [place], [phone], Provider Name:KARTHIK VAZQUEZ, 11/12/2025 11:30:00 AM, [address] [place] [address], [phone], History and Physical Notes * HPI (History of Present Illness) Category Sub-Category Detail Notes Category Not es HPI New Complaint Patient presents for a new patient consultation., Patient complains of an issue to left foot wart on heel, Duration of problem is 3 months., Patient denies any injury., MA: nd Examination Category Sub-Category Detail Notes Category Not es Constitutional Constitutional The patient is a wake, alert, well developed, well groomed and well nourished. Dermatologic Skin findings: Skin is thin, at rophic and lacking pedal hair. Left heel has a single callus with a central dark black 4mm plastic splinter. no heat, no fluctuance, no discharge, no malodor, no maceration. There is still some tenderness post removal with scalpel but relief was voiced by patient Nail pathology: Nails 1-5 bilateral are elongated, thick, discolored, and dystrophic with subungual debris. They are painful to palpation Hyperkeratotic Skin Lesion There is evid ence of hyperkeratotic skin lesions present on the, left plantar heel and bilateral 5th lateral digits Musculoskeletal Muscle Strength Muscle strength is 5/5 in regards to dorsiflexion, plantarflexion, inversion, and eversion in bilateral lower extremities. Hammertoes Dorsally contracted digits 2-5 bilateral. The deformity is rigid and nonreducible Neurologic Mulders sign: bilateral, negative Gross sensation Gross sensation is i ntact to light touch. Vascular Dorsalis pedis pulse: bilateral, 1/4 Posterior tibial pulse: 2/4, bilaterally Temperature gradient: cool to cool, bila terally Progress Notes * CLLUCINDAJuliana Larson SDOB:[birth year] (79 yo F)Acc No.[id number]:09/10/2025 Progress Notes Patient: Juliana Garcia Provider: Neo COLLADO :1945 A ge:79 Y S ex:Female Date:09/10/2025 Address:[facility] [address] [place] [id number] Subjective: * Chief Complaints: * P lantar wart * HPI: H PI: New Complaint P atсергей presents for a new patient consultation., Patient complains of an issue to left foot wart on heel, Duration of problem is 3 months., Patient denies any injury., MA: nd. * ROS: G eneral / Constitutional: Patient denies c hills, fatigue, fever. P atient complains of p ain. M usculoskeletal: Patient denies o rthotic use, muscle cramps. P atient complains of a rthritis. P eripheral Vascular: Patient denies u lceration of feet. P atient complains of p ainful extremities, cold extremities. S kin: Patient complains of l umps, warts, discoloration, fungal nails. N eurologic: Patient complains of p ain, numbness, balance difficulty.? * Medical History: Denies Past Medical History * Surgical History: Denies Past Surgical History. Surgical History verified. * Hospitalization/Major Diagno stic Procedure: Denies Past Hospitalization. Hospitalization Verified. * Family History: F ather: , cancer. M other: , stroke, High Blood Pressure. F amily History Verified.. * Social History: T obacco Use: T obacco Control (Standard) T obacco use: C urrent smoker, W hen did you start smoking? 1 11/10/2014, H ow often do you smoke cigarettes? E very day, H ow many cigarettes a day do you smoke? 6 -10. D rug/Alcohol: A ANETA-C (Standard) D id you have a drink containing alcohol in the past year? N o,?Points 0 , I nterpretation N egative. Social History Verified. * Medications: T akingCalcium Brimonidine Tartrate Lovastatin Loperamide A-D Ketorolac Tromethamine Hydralazine-HCTZ Gabapentin Furosemide Diltiazem CD Calcium Aspirin 81 Medication List reviewed and reconciled with the patientTaking Calcium Taking Brimonidine Tartrate Taking Lovastatin Taking Loperamide A-D Taking Ketorolac Tromethamine Taking Hydralazine-HCTZ Taking Gabapentin Taking Furosemide Taking Diltiazem CD Taking Calcium Taking Aspirin 81 Medication List reviewed and reconciled with the patient * Allergies: N .K.John PaulyesAllergies Verified. Objective: * Vitals: S hoe Size: 10.5, Wt: 152 lbs, Wt-k.95 kg, Ht: 67 in, Ht-cm: 170.18 cm, BMI: 23.8 Index, Body Surface Area: 1.8. * Examination: C onstitutional: Constitutional T he patient is awake, alert, well developed, well groomed and well nourished.. D ermatologic: Skin findings: S kin is thin, atrophic and lacking pedal hair. Left heel has a single callus with a central dark black 4mm plastic splinter. no heat, no fluctuance, no discharge, no malodor, no maceration. There is still some tenderness post removal with scalpel but relief was voiced by patient. Nail pathology: N ails 1-5 bilateral are elongated, thick, discolored, and dystrophic with subungual debris. They are painful to palpation. Hyperkeratotic Skin Lesion T here is evidence of hyperkeratotic skin lesions present on the, left plantar heel and bilateral 5th lateral digits. ? M usculoskeletal: Muscle Strength M uscle strength is 5/5 in regards to dorsiflexion, plantarflexion, inversion, and eversion in bilateral lower extremities.. Hammertoes D orsally contracted digits 2-5 bilateral. The deformity is rigid and nonreducible. N eurologic: Mulders sign: b ilateral, negative. Gross sensation G ross sensation is intact to light touch..? V ascular: Dorsalis pedis pulse: bilateral, 1/4. Posterior tibial pulse: 2 /4, bilaterally. Temperature gradient: c ool to cool, bilaterally. ? Assessment: * Assessment: 1. S uperficial foreign body, left foot, initial encounter - S90.042A (Primary) ?2. P ain in left foot - M79.672 3 . A therosclerosis of [place] arteries of extremities with intermittent claudication, bilateral legs - I70.213 Plan: * Treatment: 2. P ain in left foot Notes: Foreign Body Removal: There is evidence of a foreign body, likely a plastic splinter noted to the left foot. The skin was prepped with alcohol. A #15 blade was used to trim back the callused skin from the area and expose the foreign body. A fiber picker was then used to remove it from the foot in its entirety. Neosporin was then applied. 3. A therosclerosis of [place] arteries of extremities with intermittent claudication, bilateral legs Notes: Patient educated on risks and aggravating factors of PVD, including conservative treatment options such as a diet and exercise regimen to aid in slowing progression of vascular disease. Check and protect LE bilateral daily. Call if any changes or concerns. * Follow Up: 2 Weeks,post op check left heel * Electronic signature of RODOLFO COLLADO DPM on 09/18/2025 at 03:47 PM SYRUP SHED SUPERVISOR Sign off status: Pending * Provider: Neo COLLADO Date: 11/11/2024 Generated for Guerrero sullivan/Pete/Jose on: 11/19/2024 03:47 PM SYRUP SHED SUPERVISOR
--- NOTE | ~2025-09-18 | XR_ITS ---
EXAMINATION: XR ankle RT min 3V, 09/18/2025 15:38 HEARING AID FITTER HISTORY: Rt. ankle pain/ swelling x3 days, NKI COMPARISON: No comparisons available. Findings: No acute fracture or malalignment. Moderate degenerative changes Soft tissues unremarkable. Impression: No acute fracture or malalignment. Reviewed, dictated and finalized at location P. ING AID FITTER Impression: No acute fracture or malalignment.
[2025-09-18 15:33] LABS: Hematocrit 33.0 % (35.0-42.0); Hemoglobin 10.5 g/dL (11.7-13.8); Immature Granulocyte Percent A 0.8 % (0.0-0.0); Lymphocytes Absolute Auto 1.26 K/mm3 (1.10-4.50); Mean Corpuscular HGB Conc 31.8 g/dL (32-36); Mean Corpuscular Hemoglobin 29.1 pg (27.0-31.0); Mean Corpuscular Volume 91.4 fL (78.0-102.0); Nucleated Red Blood Cells Absolute Auto 0.00 K/mm3 (0.00-0.00); Nucleated Red Blood Cells Perc 0.0 % (0-0.0); Platelet Count Result 310 K/mm3 (150-420); Red Blood Count 3.61 M/mm3 (4.20-5.40); White Blood Count 10.5 K/mm3 (4.8-10.8)
--- OUTSIDE RECORDS SUMMARY | 2025-09-18 15:47 | XMS_ITS | Clinical Summary ---
Author Organization [facility] Address [address] [place] [address] Phone Care Team Providers Care Power Plant Engineer Name Role Phone Nicolás Dey MD Primary Care Provider [phone] Allergies No known active allergies Medications calcium [...] on file Legal Sex Female 7:47 AM [facility] Gender Identity Not on file Sexual Orientation [...] 09/11/2016 Insurance [employer] MEDICARE Care Teams Power Plant Engineer Relationship Specialty Start Date End Date Nicolás Dey MD [address] [place] [address] [place] [address] PCP - General Internal Medicine 04/01/19
--- OUTSIDE RECORDS SUMMARY | 2025-09-18 15:48 | XMS_ITS | Patient Health Record ---
Author Organization [facility] Address [address] [place] [address] Care Team Providers Care Tobacco Checkout Clerk Name Role Phone JENI LOPEZ Unavailable [phone] Reason For Referral No Information Plan Of Treatment No Information Insurance Providers Payer Name Payer Address Payer Phone Subscriber Number Group Number Insured Name Patient Relationship to Insured Coverage Start Date Coverage End Date [place] [address] [address] [place], [place] [id number] AditiAugusten Self - patient is the insured 9 MEDICARE [place] [address] [place], [place] [id number] AditiAugusten Self - patient is the insured 9 [facility] [address] [place] [address] [id number] PLAN F AditiAugusten Self - patient is the insured 9
--- OUTSIDE RECORDS SUMMARY | 2025-09-18 15:48 | XMS_ITS | Patient Health Record ---
Author Organization [facility] Address [address] [place], [place] [id number] Care Team Providers Care Gear Tooth Grinding Machine Operator Name Role Phone KARTHIK COLLADO Unavailable [phone] Nicolás Dey Unavailable Unavailable Allergies No Known Allergies Reason For Referral No Information Medications Medication SIG (Take, Route, Fr equency, Duration) Notes Start Date End Date Status Calcium Active Brimonidine Tartrate Active Lovastatin Active Loperamide A-D Activ e Ketorolac Tromethamine Active Hydralazine-HCTZ Act willow Gabapentin Active Furosemide Active Diltiazem CD Active Calcium Active Aspirin 81 Active Social History Tobacco Use: Social History [...] day do you smoke? 6-10 Vital Signs Height-cm 170.18 cm 09/10/2025 Weight-kg 68.95 kg 09/10/2025 Height 67 in 09/10/2025 Weight 152 lbs 09/10/2025 BMI 23.8 kg/m2 09/10/2025 Encounters Encounter Location Date Provider Diagnosis [address] [id number] 09/10/2025 KARTHIK COLLADO Superficial foreign body, left foot, initial encounter S90.852A ; Pain in left foot M79.672 and Atherosclerosis of [place] arteries of extremities with intermittent claudication, bilateral legs I70.213 Assessments Encounter Date Diagnosis (ICD Code) Assessment Notes Treatment Notes Treatment Clinical Notes Section Notes 09/10/2025 Pain in left foot (ICD-10 - M79.672) Foreign Body Removal: There is evidence of a foreign body, likely a plastic splinter noted to the left foot. The skin was prepped with alcohol. A #15 blade was used to trim back the callused skin from the area and expose the foreign body. A bead picker was then used to remove it from the foot in its entirety. Neosporin was then applied. 09/10/2025 Superficial foreign body, left foot, initial encounter (ICD-10 - S90.852A) cleansed and removed foreign body. Will check in 2 weeks. cleanse and apply triple antibiotic and bandaid daily. 09/10/2025 Atherosclerosis of [place] arteries of extremities with intermittent claudication, bilateral legs (ICD-10 - I70.213) Patient educated on risks and aggravating factors of PVD, including conservative treatment options such as a diet and exercise regimen to aid in slowing progression of vascular disease. Check and protect LE bilateral daily. Call if any changes or concerns. Plan Of Treatment Next Appt Details Provider Name:KARTHIK VAZQUEZ, 09/24/2025 10:50:00 AM, [address] [place] [address], [phone], Provider Name:KARTHIK VAZQUEZ, 11/12/2025 11:30:00 AM, [address] [place] [address], [id number], Insurance Providers Payer Name Payer Address Payer Phone Subscriber Number Group Number Insured Name Patient Relationship to Insured Coverage Start Date Coverage End Date Medicare Part B [place] [address] [place] [phone] [id number] Juliana Pennington Self - patient is the insured [facility] [address] [address] [place] [phone] [id number] Juliana Pennington Self - patient is the insured
--- OUTSIDE RECORDS SUMMARY | 2025-09-18 15:48 | XMS_ITS | Clinical Summary ---
Author Organization [facility] Address [address] [place] [address] Care Team Providers Care Batch Analyst Name Role Phone Nicolás Dey MD Primary Care Provider [phone] Allergies No known active allergies Medications [facility] [...] (06/26/2023): Added automatically from request for surgery [id number] Ankle instability, left 08/22/2022 Neuropathy of left [...] AM CDT Legal Sex Female 6:01 PM WATCH CRYSTAL CUTTER Gender Identity Not on file Sexual Orientation [...] 76.7 kg (169 lb) 08/14/2023 8:57 AM WATCH CRYSTAL CUTTER Height 170.2 cm (5' 7) 08/14/2023 8:57 AM WATCH CRYSTAL CUTTER Body Mass Index 26.47 08/14/2023 8:57 AM WATCH CRYSTAL CUTTER Plan of Treatment Health Maintenance Due Date [...] this topic Medical Devices Implanted Type Area Passenger Screener Device Identifier Shelf Expiration Date Model / Serial / Lot Screw Bone 8mm 50mm 25mm Asnis Iii Titanium Orthopedic Self Tapping Self Drilling Cannulated - [id number] Implanted:Qty: 2 on 10/10/2022 by Walter Rawls MD at [place] Screw Left: Ankle [employer] - DIV TEMI MARLEN [id number] / / Pain Stimulator Description:PAIN STIMULATOR IN LOWER BACK ON THE LEFT SIDE 3.2 Guide Pin Implanted:Qty: 2 on 10/10/2022 by Walter Rawls MD at [facility] Left: Ankle [id number] / / Washer 8.0 Implanted:Qty: 2 on 10/10/2022 by Walter Rawls MD at [facility] Left: Ankle [id number] / / 8.0x120 Cannulated Screw Implanted:Qty: 2 on 10/10/2022 by Walter Rawls MD at [place] Left: Ankle [id number] / / Explanted Type Area Passenger Screener Device Identifier Shelf Expiration Date Model / Serial / Lot Guide Wire, Smooth Explanted:Qty: 1 on 07/24/2023 by Walter Rawls MD at [facility] Left: Ankle [employer] MARLEN [id number] / / Insurance MEDICARE MEDICARE LIFE [employer]URANCE Care Teams Batch Analyst Relationship Specialty Start Date End Date Nicolás Dey MD [address] [place], [place] [id number] PCP - General FAMILY PRACTICE 07/17/19
[2025-09-18 16:01] LABS: Anion Gap 10 mmol/L (4-12); Blood Urea Nitrogen 39 mg/dL (7-17); Calcium 9.6 mg/dL (8.4-10.2); Carbon Dioxide 30 mmol/L (22-30); Chloride 100 mmol/L (98-107); Estimated Glomerular Filt Rate 7; Glucose 100 mg/dL (65-110); Osmolality Calculated 299 mOsm/kg (285-295); Potassium 3.3 mmol/L (3.4-5.0); Sodium 140 mmol/L (137-145)
== END 2025-09-18 15:15 | disposition home or self-care (01) ==
PROVIDERS: PCP Family Medicine; Visit Provider Family Medicine
DX: R21 Rash and other nonspecific skin eruption (principal); M25.571 Pain in right ankle and joints of right foot
CPT/HCPCS: 36415; 73610; 80048; 85025